=== PATIENT | female | born 1975 | race Caucasian/White ===

== ENCOUNTER 2018-06-10 22:25 | Emergency (ER) | payer MEDICARE, OTHER ==
[~2018-06-10] VITALS: Ht 160 cm; Wt 117.9 kg
[2018-06-10 23:09] VITALS: BP 118/62
[2018-06-10] MEDS ORDERED: MORPHINE SULFATE 2 MG/ML SYR IV STA (23:09)
[2018-06-10] MEDS ORDERED: ONDANSETRON HCL 4 MG ORAL DISINTEGRATING TAB PO ONE (23:15)
== END 2018-06-10 23:45 | disposition home or self-care (01) ==
LOC: FSED 22:25
DX: M54.41 Lumbago with sciatica, right side (principal); E11.9 Type 2 diabetes mellitus without complications; G89.29 Other chronic pain
CPT/HCPCS: 99283

== ENCOUNTER 2018-07-06 17:49 | Observation (INO) | payer MEDICARE, OTHER ==
[~2018-07-06] VITALS: Ht 160 cm; Wt 117.9 kg
--- OUTSIDE RECORDS SUMMARY | 2018-07-06 17:52 | XMS REPORT | Clinical Summary ---
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 Name Role Phone Katie Martins MD PCP Allergies Comments Active Allergy Reactions Severity Noted Date Pt can take ibuprofen; Unknown aspirin reaction; Transcribed during [employer], please verify: Aspirin Hives Low 12/06/2016 Other reaction(s): blister in mouth Unknown; Transcribed during [employer], please verify: Ciprofloxacin Shortness Of High 04/12/2013 Breath Rash Gabapentin Swelling Medium 02/17/2017 Ketorolac Anaphylaxis High 02/09/2017 Seizure Tramadol Other (See High 10/26/2017 Comments) Medications End Date Status Medication Sig Dispensed Refills Start Date Active HYDROcodone-acetaminophen Take 2 0 (NORCO) 10-325 mg per tablets by tablet mouth daily. Active hydrOXYzine (ATARAX) 50 TK 1 T PO 0 MG tablet QID PRF 7 ANXIETY Active medroxyPROGESTERone Take 2.5 mg 0 (PROVERA) 2.5 MG tablet by mouth daily. Active LYRICA 75 mg capsule Take 75 mg by 0 mouth 2 (two) 7 times a day. 10/26/2018 Active blood-glucose meter kit Use as 1 each 0 instructed 8 Active lancets misc Test 2-3 300 each 0 times daily, 8 Dx E11.40 Active blood sugar diagnostic Test 2-3 300 strip 0 strips (ONETOUCH ULTRA times daily, 8 TEST) strip test Dx E11.40 stripsIndications: Type 2 diabetes mellitus with diabetic neuropathy, with long-term current use of insulin (HCC) Active pen needle, diabetic (PEN Dx E11.40 1 100 each 0 NEEDLE) 32 gauge x 5/32" pen needle 8 needle daily Active insulin glulisine U-100 Inject 8 0 (APIDRA SOLOSTAR U-100 Units under INSULIN) 100 unit/mL the skin insulin pen daily with dinner. Active levothyroxine (SYNTHROID, TAKE 1 90 tablet 0 LEVOXYL) 300 mcg tablet TABLET(300 8 MCG) BY MOUTH DAILY Active HUMALOG KWIKPEN INSULIN ADMINISTER 8 9 mL 3 100 unit/mL injection pen UNITS UNDER 8 THE SKIN DAILY BEFORE DINNER Active traZODone (DESYREL) 150 TAKE 2 60 tablet 0 MG tablet TABLETS(300 8 MG) BY MOUTH EVERY NIGHT Active ARIPiprazole (ABILIFY) 30 TAKE 1 30 tablet 0 MG tablet TABLET(30 MG) 8 BY MOUTH DAILY Active metFORMIN XR TAKE 4 120 tablet 1 (GLUCOPHAGE-XR) 500 mg 24 TABLETS(2000 8 hr tablet MG) BY MOUTH DAILY WITH BREAKFAST 08/26/2017 Discontinued docusate sodium (COLACE) Take 100 mg 0 100 MG capsule by mouth 2 (two) times a day as needed for constipation. 07/20/2017 Discontinued glipiZIDE (GLUCOTROL) 10 Take 10 mg by 0 MG tablet mouth daily. 11/25/2017 Discontinued levothyroxine (SYNTHROID, Take 300 mcg 0 LEVOXYL) 300 mcg tablet by mouth daily. 10/26/2017 Discontinued metFORMIN (GLUCOPHAGE) Take 1,000 mg 0 1,000 mg tablet by mouth 2 (two) times a day. 08/27/2017 Discontinued ZANAFLEX 4 mg tablet Take 4 mg by 0 mouth 2 (two) 7 times a day. 07/20/2017 Discontinued LYRICA 50 mg capsule 0 7 07/20/2017 Discontinued ARIPiprazole (ABILIFY) 10 Take 20 mg by 0 MG tablet mouth daily. 08/26/2017 Discontinued mirtazapine (REMERON Take 30 mg by 0 KATHLEEN-TAB) 30 MG mouth disintegrating tablet nightly. 08/09/2017 albuterol (PROAIR Inhale 2 1 Inhaler 0 HFA,PROVENTIL puffs every 4 7 HFA,VENTOLIN HFA) 90 (four) hours mcg/actuation inhaler as needed for wheezing (cough) for up to 30 days. 08/09/2017 benzonatate (TESSALON) Take 1 20 capsule 0 200 MG capsule capsule (200 7 mg total) by mouth 3 (three) times a day as needed for cough for up to 30 days. 07/14/2017 azithromycin (ZITHROMAX Take 2 6 tablet 0 Z-DAJA) 250 MG tablet tablets the 7 first day, then 1 tablet daily for 4 days. 07/20/2017 Discontinued albuterol (PROAIR 0 HFA,PROVENTIL 7 HFA,VENTOLIN HFA) 90 mcg/actuation inhaler 12/08/2017 Discontinued traZODone (DESYREL) 150 Take 300 mg 0 MG tablet by mouth 7 nightly. 12/08/2017 Discontinued ARIPiprazole (ABILIFY) 30 Take 30 mg by 0 MG tablet mouth daily. 7 07/20/2017 Discontinued ZANAFLEX 4 mg tablet 0 7 08/26/2017 Discontinued buPROPion SR (WELLBUTRIN 0 SR) 150 MG 12 hr tablet 7 07/20/2017 Discontinued HYDROcodone-acetaminophen 0 (NORCO) 10-325 mg per 7 tablet 07/20/2017 Discontinued hydrOXYzine (ATARAX) 10 0 MG tablet 7 08/26/2017 Discontinued BYDUREON 2 mg/0.65 mL pen 0 injector 7 08/26/2017 Discontinued glipiZIDE (GLUCOTROL) 10 0 MG tablet 7 07/20/2017 Discontinued GLUCOPHAGE 1,000 mg 0 tablet 7 07/20/2017 Discontinued PROVERA 10 mg tablet 0 7 07/20/2017 Discontinued levothyroxine (SYNTHROID, 0 LEVOXYL) 300 mcg tablet 7 07/23/2017 lidocaine HCl (lidocaine) 15 mL by 90 mL 0 2 % solution mucous 7 membrane route 2 (two) times a day for 3 days. 08/10/2017 sulfamethoxazole-trimetho Take 1 tablet 14 tablet 0 prim (BACTRIM DS) 800-160 by mouth 2 8 mg per tablet (two) times a day for 7 days. smx-tmp DS (BACTRIM) 800-160 mg tabs (1tab q12 D10) 08/13/2017 traMADol (ULTRAM) 50 mg Take 1 tablet 20 tablet 0 tablet (50 mg total) 8 by mouth every 6 (six) hours as needed for moderate pain for up to 10 days. 08/03/2017 fluconazole (DIFLUCAN) Take 1 tablet 1 tablet 0 150 MG tablet (150 mg 8 total) by mouth once for 1 dose. 08/14/2017 prochlorperazine Take 1 tablet 20 tablet 0 (COMPAZINE) 10 MG tablet (10 mg total) 8 by mouth 2 (two) times a day as needed for nausea or vomiting for up to 10 days. 08/26/2017 Discontinued diphenhydrAMINE Take 1 tablet 20 tablet 0 (BENADRYL) 25 mg tablet (25 mg total) 8 by mouth every 6 (six) hours for 30 days. 09/27/2017 verapamil extended Take 1 30 capsule 0 release (VERELAN) 120 MG capsule (120 8 24 hr capsule mg total) by mouth daily for 30 days. 11/25/2017 Discontinued verapamil (CALAN) 120 MG Take 1 tablet 0 tablet by mouth 8 daily. 11/25/2017 Discontinued metFORMIN XR Take 1 tablet 30 tablet 2 (GLUCOPHAGE-XR) 500 mg 24 (500 mg 8 hr tablet total) by mouth daily with breakfast for 30 days. 12/08/2017 Discontinued exenatide microspheres 2 Inject 2 mg 12 each 0 mg suspension,extended under the 8 rel recon skin every 7 days for 90 days. 11/25/2017 Discontinued insulin GLARGINE (TOUJEO) Inject 8 1.5 mL 2 300 unit/mL (1.5 mL) Units under 8 insulin pen the skin daily for 30 days. 11/25/2017 Discontinued pen needle, diabetic (PEN Dx E11.40 1 300 each 0 NEEDLE) 32 gauge x 5/32" pen needle 8 needle daily 11/25/2017 Discontinued levothyroxine (SYNTHROID, Take 1 tablet 30 tablet 1 LEVOXYL) 300 mcg tablet (300 mcg 8 total) by mouth daily for 30 days. 12/25/2017 verapamil (CALAN) 120 MG Take 1 tablet 30 tablet 2 tablet (120 mg 8 total) by mouth daily for 30 days. 11/25/2017 Discontinued metFORMIN XR Take 4 120 tablet 1 (GLUCOPHAGE-XR) 500 mg 24 tablets 8 hr tablet (2,000 mg total) by mouth daily with breakfast for 30 days. 12/25/2017 insulin GLARGINE (TOUJEO) Inject 30 3 Syringe 3 300 unit/mL (1.5 mL) Units under 8 insulin pen the skin daily for 30 days. 04/01/2018 Discontinued metFORMIN XR TAKE 4 360 tablet 1 (GLUCOPHAGE-XR) 500 mg 24 TABLETS(2000 8 hr tablet MG) BY MOUTH DAILY WITH BREAKFAST 12/08/2017 Discontinued levothyroxine (SYNTHROID, TAKE 1 90 tablet 1 LEVOXYL) 300 mcg tablet TABLET(300 8 MCG) BY MOUTH DAILY 12/08/2017 Discontinued levothyroxine (SYNTHROID, Take 300 mcg 0 LEVOXYL) 300 mcg tablet by mouth 8 daily. 12/08/2017 Discontinued TOUJEO SOLOSTAR U-300 Inject 44 0 INSULIN 300 unit/mL (1.5 Units under 8 mL) insulin pen the skin daily. 12/08/2017 Discontinued CALAN 120 mg tablet Take 120 mg 0 by mouth 8 every morning. 12/08/2017 Discontinued insulin lispro (HUMALOG) Inject 8 3 mL 3 100 unit/mL injection pen Units under 8 the skin daily before dinner for 30 days. 12/08/2017 Discontinued ARIPiprazole (ABILIFY) 30 Take 1 tablet 30 tablet 0 MG tablet (30 mg total) 8 by mouth daily for 30 days. 12/08/2017 Discontinued traZODone (DESYREL) 150 Take 2 60 tablet 0 MG tablet tablets (300 8 mg total) by mouth nightly for 30 days. 12/28/2017 acetaminophen-codeine Take 1-2 22 tablet 0 (TYLENOL WITH CODEINE #3) tablets by 8 300-30 mg per tablet mouth every 6 (six) hours as needed for moderate pain for up to 5 days. 01/22/2018 ondansetron ODT (ZOFRAN Take 1 tablet 30 tablet 0 ODT) 4 MG disintegrating (4 mg total) 8 tablet by mouth every 8 (eight) hours as needed for nausea or vomiting for up to 30 days. Active Problems Problem Noted Date SVT (supraventricular tachycardia) 08/26/2017 Dyspepsia 05/13/2017 Menorrhagia 04/07/2017 Hepatic steatosis 02/23/2017 Diarrhea 02/17/2017 H/O: GI bleed 02/17/2017 Melena 12/08/2016 GI bleed 12/07/2016 Overview: Suspected Epigastric pain 12/07/2016 Anemia 12/07/2016 Type 2 diabetes mellitus with diabetic neuropathy 12/07/2016 Hypothyroid 12/07/2016 Encounters Care Team Description Date Type Specialty Katie Martins MD 04/01/2018 Orders Only Internal Medicine Jessica Mccrary LVN 04/01/2018 Telephone Family Medicine Julio Pierson MD Pain of right upper extremity (Primary Dx) 12/23/2017 Emergency Emergency Medicine Katie Martins MD Type 2 diabetes mellitus with hyperglycemia, with long-term current use of insulin (Primary Dx) 12/08/2017 Office Visit Internal Medicine Katie Martins MD 12/08/2017 Refill Internal Medicine Katie Martins MD 11/27/2017 Telephone Internal Medicine Katie Martins MD Chronic tension-type headache, intractable (Primary Dx) 11/27/2017 Orders Only Internal Medicine Katie Martins MD Type 2 diabetes mellitus with hyperglycemia, with long-term current use of insulin (Primary Dx); Acquired hypothyroidism; Numbness 11/25/2017 Office Visit Internal Medicine Katie Martins MD 11/25/2017 Refill Internal Medicine Beulah Olivera MA 11/11/2017 Telephone Internal Medicine Karyn Bernal MD Numbness (Primary Dx) 11/10/2017 Emergency Emergency Medicine Lauren Ingram MA 11/10/2017 Telephone Internal Medicine Asked, No Pcp 11/10/2017 Nurse Triage Access Beulah Olivera MA 11/09/2017 Telephone Internal Medicine Beulah Olivera MA Type 2 diabetes mellitus with diabetic neuropathy, with long-term current use of insulin 10/28/2017 Orders Only Internal Medicine Katie Martins MD 10/28/2017 Telephone Internal Medicine Beulah Olivera MA 10/27/2017 Orders Only Internal Medicine Katie Martins MD 10/27/2017 Telephone Internal Medicine Katie Martins MD Type 2 diabetes mellitus with hyperglycemia, without long- term current use of insulin (Primary Dx); Anemia, unspecified type; Menorrhagia with regular cycle; PSVT (paroxysmal supraventricular tachycardia); Acquired hypothyroidism; Chronic pain syndrome; Other intermodal customer service (current) drug therapy; Hypokalemia; Encounter for breast cancer screening other than mammogram; Need for Streptococcus pneumoniae vaccination 10/26/2017 Office Visit Internal Medicine Waldemar Parrish MD Abouelseoud, Tanseem Hamad Mohamed A, MD SVT (supraventricular tachycardia) (Primary Dx); Elevated serum lactate dehydrogenase; Dizziness 08/26/2017 Emergency General Internal Medicine - 08/27/2017 Waldemar Parrish MD Nonintractable headache, unspecified chronicity pattern, unspecified headache type (Primary Dx) 08/04/2017 Emergency Emergency Medicine Maxim Dye MD Acute cystitis without hematuria (Primary Dx); Intractable episodic cluster headache 08/03/2017 Emergency Emergency Medicine 07/31/2017 Emergency Emergency Medicine Fox Mcdonough DO URI, acute (Primary Dx) 07/20/2017 Emergency Emergency Medicine Elida Doll NP-C Marcantel, Derek L, MD Bronchitis (Primary Dx); Migraine without status migrainosus, not intractable, unspecified migraine type 07/10/2017 Emergency Emergency Medicine after 07/05/2017 Immunizations Name Dates Previously Given Next Due Pneumococcal 10/26/2017 Polysaccharide Family History Medical History Relation Name Comments Kidney failure Father Thyroid disease Mother Relation Name Status Comments Father Mother Alive Social History Date Tobacco Use Types Packs/Day Years Used Current Every Day Smoker Cigarettes 1.5 Smokeless Tobacco: Never Used Tobacco Cessation: Ready to Quit: Yes; Counseling Given: No Comments: declined Alcohol Use Drinks/Week oz/Week Comments No Sex Assigned at Date Recorded Not on file Industry Job Start Date Occupation Not on file Not on file Not on file Travel End Travel History Travel Start No recent travel history available. Last Filed Vital Signs Time Taken Vital Sign Reading 12/23/2017 6:55 PM CDT Blood Pressure 120/58 12/23/2017 6:55 PM CDT Pulse 76 12/23/2017 6:55 PM CDT Temperature 36.3 C (97.4 F) 12/23/2017 6:55 PM CDT Respiratory Rate 16 12/23/2017 6:55 PM CDT Oxygen Saturation 95% - Inhaled Oxygen - Concentration 12/23/2017 3:42 PM CDT Weight 122 kg (270 lb) 12/23/2017 3:42 PM CDT Height 160 cm (5' 3") 12/23/2017 3:42 PM CDT Body Mass Index 47.83 Plan of Treatment Health Maintenance Due Date Last Done Comments DIABETIC FOOT EXAM 1986 URINE MICROALBUMIN 1986 HEPATITIS B VACCINES (1 1995 of 3 - Risk 3-dose series) CERVICAL CANCER SCREENING 1997 INFLUENZA VACCINE 02/24/2018 DIABETIC RETINAL EYE EXAM 2018 2017 IPV VACCINES Aged Out No longer eligible based on patient's age to complete this topic MENINGOCOCCAL VACCINE Aged Out No longer eligible based on patient's age to complete this topic Procedures Comments Procedure Name Priority Date/Time Associated Diagnosis XR ELBOW 3+ VW RIGHT STAT 12/23/2017 4:59 PM CDT US DUPLEX VENOUS UPPER STAT 12/23/2017 EXTREMITY RIGHT 4:54 PM CDT POC GLUCOSE Routine 12/23/2017 3:48 PM CDT COMPREHENSIVE METABOLIC Routine 12/08/2017 Type 2 diabetes mellitus PANEL 9:59 AM CDT with hyperglycemia, with long-term current use of insulin ECG 12-LEAD STAT 11/10/2017 5:49 PM CDT URINALYSIS SCREEN AND STAT 11/10/2017 MICROSCOPY, WITH REFLEX 5:43 PM CDT TO CULTURE URINE CULTURE STAT 11/10/2017 5:43 PM CDT POC GLUCOSE Routine 11/10/2017 5:[address] ANGIOGRAM NECK W WO STAT 11/10/2017 CONTRAST 5:[address] ANGIOGRAM HEAD W WO STAT 11/10/2017 CONTRAST 5:27 PM CDT ECG ED PRELIMINARY Routine 11/10/2017 INTERPRETATION 5:[address] STROKE BRAIN WO STAT 11/10/2017 CONTRAST 5:03 PM CDT ZZESTIMATED GFR STAT 11/10/2017 5:03 PM CDT TROPONIN STAT 11/10/2017 5:03 PM CDT COMPREHENSIVE METABOLIC STAT 11/10/2017 PANEL 5:03 PM CDT PARTIAL THROMBOPLASTIN STAT 11/10/2017 TIME (PTT) 4:55 PM CDT HC COMPLETE BLD COUNT STAT 11/10/2017 W/AUTO DIFF 4:55 PM CDT PROTHROMBIN TIME WITH INR STAT 11/10/2017 4:55 PM CDT POC GLUCOSE Routine 11/10/2017 4:43 PM CDT POC GLYCOSYLATED Routine 10/26/2017 Type 2 diabetes mellitus HEMOGLOBIN (HGB A1C) 11:14 AM CDT with hyperglycemia, without long-term current use of insulin ECG ED PRELIMINARY Routine 08/27/2017 INTERPRETATION 11:32 AM SLICING MACHINE FEEDER POC GLUCOSE Routine 08/27/2017 11:05 AM SLICING MACHINE FEEDER ZZESTIMATED GFR Routine 08/27/2017 7:00 AM SLICING MACHINE FEEDER BASIC METABOLIC PANEL Routine 08/27/2017 7:00 AM SLICING MACHINE FEEDER POC GLUCOSE Routine 08/27/2017 6:42 AM SLICING MACHINE FEEDER HC COMPLETE BLD COUNT Routine 08/27/2017 W/AUTO DIFF 4:27 AM SLICING MACHINE FEEDER URINE CULTURE STAT 08/27/2017 1:00 AM SLICING MACHINE FEEDER URINALYSIS SCREEN AND STAT 08/27/2017 MICROSCOPY, WITH REFLEX 12:57 AM SLICING MACHINE FEEDER TO CULTURE LACTIC ACID LEVEL Timed 08/26/2017 7:05 PM SLICING MACHINE FEEDER ECHOCARDIOGRAM 2D Routine 08/26/2017 COMPLETE W MMODE SPECTRAL 5:48 PM SLICING MACHINE FEEDER COLOR DOPPLER ([id number]) BLOOD CULTURE, AEROBIC & Routine 08/26/2017 ANAEROBIC 5:25 PM SLICING MACHINE FEEDER XR CHEST 1 VW PORTABLE STAT 08/26/2017 5:14 PM SLICING MACHINE FEEDER B NATRIURETIC PEPTIDE STAT 08/26/2017 5:14 PM SLICING MACHINE FEEDER ALCOHOL LEVEL, BLOOD Routine 08/26/2017 5:14 PM SLICING MACHINE FEEDER BLOOD CULTURE, AEROBIC & Routine 08/26/2017 ANAEROBIC 5:14 PM SLICING MACHINE FEEDER LACTIC ACID LEVEL, SEPSIS Timed 08/26/2017 - NOW AND REPEAT 2X EVERY 4:01 PM SLICING MACHINE FEEDER 3 HOURS TROPONIN Timed 08/26/2017 4:01 PM SLICING MACHINE FEEDER HEMOGLOBIN A1C Routine 08/26/2017 11:53 AM SLICING MACHINE FEEDER ZZESTIMATED GFR STAT 08/26/2017 11:53 AM SLICING MACHINE FEEDER T4, FREE STAT 08/26/2017 11:53 AM SLICING MACHINE FEEDER THYROID STIMULATING STAT 08/26/2017 HORMONE 11:53 AM SLICING MACHINE FEEDER LACTIC ACID LEVEL, SEPSIS STAT 08/26/2017 - NOW AND REPEAT 2X EVERY 11:53 AM SLICING MACHINE FEEDER 3 HOURS HCG QUALITATIVE, SERUM STAT 08/26/2017 SCREEN 11:53 AM SLICING MACHINE FEEDER CREATINE KINASE, TOTAL STAT 08/26/2017 (CPK) 11:53 AM SLICING MACHINE FEEDER B NATRIURETIC PEPTIDE STAT 08/26/2017 11:53 AM SLICING MACHINE FEEDER TROPONIN STAT 08/26/2017 11:53 AM SLICING MACHINE FEEDER COMPREHENSIVE METABOLIC STAT 08/26/2017 PANEL 11:53 AM SLICING MACHINE FEEDER PARTIAL THROMBOPLASTIN STAT 08/26/2017 TIME (PTT) 11:53 AM SLICING MACHINE FEEDER PROTHROMBIN TIME WITH INR STAT 08/26/2017 11:53 AM SLICING MACHINE FEEDER HC COMPLETE BLD COUNT STAT 08/26/2017 W/AUTO DIFF 11:53 AM SLICING MACHINE FEEDER XR CHEST 2 VW STAT 08/26/2017 11:14 AM SLICING MACHINE FEEDER ECG 12-LEAD STAT 08/26/2017 10:56 AM SLICING MACHINE FEEDER ZZESTIMATED GFR STAT 08/04/2017 1:26 PM SLICING MACHINE FEEDER HCG QUALITATIVE, SERUM STAT 08/04/2017 SCREEN 1:26 PM SLICING MACHINE FEEDER COMPREHENSIVE METABOLIC STAT 08/04/2017 PANEL 1:26 PM SLICING MACHINE FEEDER HC COMPLETE BLD COUNT STAT 08/04/2017 W/AUTO DIFF 1:26 PM SLICING MACHINE FEEDER CT HEAD WO CONTRAST STAT 08/03/2017 4:03 PM SLICING MACHINE FEEDER URINALYSIS SCREEN AND STAT 08/03/2017 MICROSCOPY, WITH REFLEX 2:45 PM SLICING MACHINE FEEDER TO CULTURE GRAM STAIN STAT 08/03/2017 2:45 PM SLICING MACHINE FEEDER URINE CULTURE STAT 08/03/2017 2:45 PM SLICING MACHINE FEEDER ZZESTIMATED GFR STAT 08/03/2017 2:35 PM SLICING MACHINE FEEDER HCG QUALITATIVE, SERUM STAT 08/03/2017 SCREEN 2:35 PM SLICING MACHINE FEEDER COMPREHENSIVE METABOLIC STAT 08/03/2017 PANEL 2:35 PM SLICING MACHINE FEEDER HC COMPLETE BLD COUNT STAT 08/03/2017 W/AUTO DIFF 2:35 PM SLICING MACHINE FEEDER STREP SCREEN CULTURE Routine 07/20/2017 6:31 AM SLICING MACHINE FEEDER GROUP A STREP, RAPID Routine 07/20/2017 ANTIGEN 2:21 AM SLICING MACHINE FEEDER INFLUENZA ANTIGEN Routine 07/10/2017 10:46 AM SLICING MACHINE FEEDER XR CHEST 2 VW STAT 07/10/2017 10:30 AM SLICING MACHINE FEEDER after 07/05/2017 Results * XR Elbow 3+ Vw Right (12/23/2017 4:59 PM CDT) Narrative Performed At EXAMINATION:XR ELBOW 3VW RIGHT [facility] CLINICAL HISTORY:right elbow pain COMPARISON:None. IMPRESSION: There is no evidence of acute right elbow fracture, dislocation, or joint effusion. [facility]-[id number] Procedure Note Hm Interface, Radiology Results Incoming - 12/23/2017 5:04 PM CDT EXAMINATION: XR ELBOW 3 VW RIGHT CLINICAL HISTORY: right elbow pain COMPARISON: None. IMPRESSION: There is no evidence of acute right elbow fracture, dislocation, or joint effusion. [facility]-[id number] Performing Organization Address [facility]/Zipcode Phone Number [facility] [address] [place] [address] * Pv duplex venous upper extremity (12/23/2017 4:54 PM CDT) Narrative Performed At [facility] The right upper extremity was negative for deep vein thrombosis or superficial vein thrombosis. Performing Organization Address [facility]/Zipcode Phone Number [facility] [address] [place] [address] * POC glucose (12/23/2017 3:48 PM CDT) Only the most recent of 5 results within the time period is included. POC glucose 249 (H) 65 - 99 mg/dL [facility] DEPARTMENT OF Comment: PATHOLOGY AND Meter ID: [id number] GENOMIC MEDICINE Remittance Clerk: Carmen Lou Performing Organization Address City/[facility]/Zipcode Phone Number [facility] DEPARTMENT OF [address] [place] [address] [place] [address] PATHOLOGY AND GENOMIC MEDICINE * Comprehensive metabolic panel (12/08/2017 9:59 AM CDT) Only the most recent of 5 results within the time period is included. Glucose 119 (H) 65 - 99 mg/dL [facility] BUN, whole blood 17 6 - 24 mg/dL [facility] Creatinine 0.95 0.57 - 1.00 mg/dL [facility] EGFR Non-Afr. British 75 >59 mL/min/1.73 [facility] EGFR 86 >59 mL/min/1.73 [facility] BUN/creatinine ratio 18 9 - 23 [facility] Sodium 143 134 - 144 mmol/L [facility] Potassium 4.4 3.5 - 5.2 mmol/L [facility] Chloride 103 96 - 106 mmol/L [facility] CO2 22 18 - 29 mmol/L [facility] Calcium 9.8 8.7 - 10.2 mg/dL [facility] Protein 7.8 6.0 - 8.5 g/dL [facility] Albumin, S 4.9 3.5 - 5.5 g/dL [facility] Globulin, total 2.9 1.5 - 4.5 g/dL [facility] Albumin/globulin ratio 1.7 1.2 - 2.2 [facility] Total bilirubin 0.7 0.0 - 1.2 mg/dL [facility] Alkaline phosphatase 122 (H) 39 - 117 IU/L [facility] AST 127 (H) 0 - 40 IU/L [facility] ALT 76 (H) 0 - 32 IU/L [facility] Specimen Blood Narrative Performed At Performed at:[facility] - [facility] [address] [place], [place] [id number] Waist Pleater: Fabricio Ibanez MD, Phone:[phone] Performing Organization Address City/State[facility] Phone Number [facility] * ECG 12 lead (11/10/2017 5:49 PM CDT) Only the most recent of 2 results within the time period is included. Ventricular rate 80 [facility] Atrial rate 80 [facility] MT interval 152 [facility] QRSD interval 92 [facility] QT interval 386 [facility] QTC interval 445 [facility] P axis 1 52 [facility] QRS axis 1 18 [facility] T wave axis 56 [facility] EKG impression Normal sinus [facility] rhythm-Nonspecific T wave abnormality-Abnormal ECG-In automated comparison with ECG of 26-AUG-2017 10:56,-Nonspecific T wave abnormality, worse in Inferior leads-Nonspecific T wave abnormality now evident in Anterolateral leads- Performing Organization Address City/State/Zipcode Phone Number [facility] [address] [place] [address] * Urinalysis screen and microscopy, with reflex to culture (11/10/2017 5:43 PM CDT) Only the most recent of 3 results within the time period is included. Specimen site Catheterized [facility] DEPARTMENT OF PATHOLOGY AND GENOMIC MEDICINE Color, UA Straw [facility] DEPARTMENT OF PATHOLOGY AND GENOMIC MEDICINE Appearance, UA Clear [facility] DEPARTMENT OF PATHOLOGY AND GENOMIC MEDICINE Specific gravity, UA 1.030 1.001 - 1.035 [facility] DEPARTMENT OF PATHOLOGY AND GENOMIC MEDICINE pH, UA 5.0 5.0 - 8.5 [facility] DEPARTMENT OF PATHOLOGY AND GENOMIC MEDICINE Protein, UA Negative Negative [facility] DEPARTMENT OF PATHOLOGY AND GENOMIC MEDICINE Glucose, UA 3+ (A) Negative [facility] DEPARTMENT OF PATHOLOGY AND GENOMIC MEDICINE Ketones, UA Trace (A) Negative [facility] DEPARTMENT OF PATHOLOGY AND GENOMIC MEDICINE Bilirubin, UA Negative Negative [facility] DEPARTMENT OF PATHOLOGY AND GENOMIC MEDICINE Blood, UA Small (A) Negative [facility] DEPARTMENT OF PATHOLOGY AND GENOMIC MEDICINE Nitrite, UA Negative Negative [facility] DEPARTMENT OF PATHOLOGY AND GENOMIC MEDICINE Urobilinogen, UA Negative <2.0 [facility] DEPARTMENT OF PATHOLOGY AND GENOMIC MEDICINE Leukocyte esterase, UA Negative Negative [facility] DEPARTMENT OF PATHOLOGY AND GENOMIC MEDICINE Epithelial cells, UA Few /HPF [facility] DEPARTMENT OF PATHOLOGY AND GENOMIC MEDICINE WBC, UA <1 0 - 5 /HPF [facility] DEPARTMENT OF PATHOLOGY AND GENOMIC MEDICINE RBC, UA 2 0 - 5 /HPF [facility] DEPARTMENT OF PATHOLOGY AND GENOMIC MEDICINE Bacteria, UA None seen None seen [facility] DEPARTMENT OF PATHOLOGY AND GENOMIC MEDICINE Yeast, UA None seen [facility] DEPARTMENT OF PATHOLOGY AND GENOMIC MEDICINE Yeast with pseudohyphae, None seen [facility] DEPARTMENT OF PATHOLOGY AND GENOMIC MEDICINE Specimen Urine Performing Organization Address City/[facility]/Zipcode Phone Number [place] [phone] [place] [address] PATHOLOGY AND GENOMIC MEDICINE * Urine culture (11/10/2017 5:43 PM CDT) Only the most recent of 3 results within the time period is included. Urine culture SEE COMMENTComment: [facility] DEPARTMENT OF Bacteriuria screen negative. PATHOLOGY AND GENOMIC MEDICINE Specimen Urine Performing Organization Address City/State/Zipcode Phone Number [facility] DEPARTMENT OF [address] [place] [address] PATHOLOGY AND GENOMIC MEDICINE * CTA Neck W Wo Contrast (11/10/2017 5:30 PM CDT) Narrative Performed At EXAMINATION: CT ANGIOGRAM NECK W WO CONTRAST [facility] CLINICAL HISTORY: numbness left side COMPARISON:None TECHNIQUE: Imaging of the cervical circulation was obtained from the upper thorax to the skull base during the arterial phase of enhancement. Postprocessing was performed with MIP multiplanar and 3D reconstructed images.CT imaging was performed with iterative reconstruction technique and/or automated exposure control to reduce radiation dose. FINDINGS: Visualized upper mediastinum shows no mass lesion. Lung apices are clear. Visualized soft tissues shows no mass, adenopathy or fluid collection. Visualized osseous structures shows no acute fracture or dislocation. The common carotid arteries, carotid bulbs, internal carotid arteries and external carotid arteries are opacified with 0% stenosis by NASCET criteria. The vertebral arteries are patent throughout the visualized cervical segments without significant stenosis. There is mild tortuosity of the carotid arteries which remain widely patent. The left vertebral artery is dominant. IMPRESSION: No hemodynamically significant narrowing of the cervical vessels by NASCET criteria. [id number] Procedure Note Hm Interface, Radiology Results Incoming - 11/10/2017 5:40 PM CDT EXAMINATION: CT ANGIOGRAM NECK W WO CONTRAST CLINICAL HISTORY: numbness left side COMPARISON: None TECHNIQUE: Imaging of the cervical circulation was obtained from the upper thorax to the skull base during the arterial phase of enhancement. Postprocessing was performed with MIP multiplanar and 3D reconstructed images. CT imaging was performed with iterative reconstruction technique and/or automated exposure control to reduce radiation dose. FINDINGS: Visualized upper mediastinum shows no mass lesion. Lung apices are clear. Visualized soft tissues shows no mass, adenopathy or fluid collection. Visualized osseous structures shows no acute fracture or dislocation. The common carotid arteries, carotid bulbs, internal carotid arteries and external carotid arteries are opacified with 0% stenosis by NASCET criteria. The vertebral arteries are patent throughout the visualized cervical segments without significant stenosis. There is mild tortuosity of the carotid arteries which remain widely patent. The left vertebral artery is dominant. IMPRESSION: No hemodynamically significant narrowing of the cervical vessels by NASCET criteria. [id number] Performing Organization Address City/State/Zipcode Phone Number [facility] [address] [place] [address] * CTA Head W Wo Contrast (11/10/2017 5:27 PM CDT) Narrative Performed At EXAMINATION: CT ANGIOGRAM HEAD W WO CONTRAST [facility] CLINICAL HISTORY: numbness left side COMPARISON:CT brain dated November 10, 2017 TECHNIQUE:Imaging of the intracranial circulation was obtained from the skull base to the vertex during the arterial phase of enhancement. Postprocessing was performed with MIP multiplanar and 3D reconstructed images.CT imaging was performed with iterative reconstruction technique and/or automated exposure control to reduce radiation dose. FINDINGS: There are no gross brain parenchymal abnormalities. There is no midline shift, hydrocephalus or extra-axial fluid collection. The major dural sinuses are opacified normally. Soft tissue shows no evidence of laceration or hematoma. No hemodynamically significant stenosis is identified of the intracranial internal carotid arteries, middle cerebral arteries, anterior cerebral arteries, intracranial vertebral arteries, basilar artery or posterior cerebral arteries. There is no aneurysmal dilatation or vascular malformation of the [place]. The left vertebral artery is dominant. There is origin of the right posterior cerebral artery. IMPRESSION: No hemodynamically significant narrowing of the [place] vessels. [id number] Procedure Note Interface, Radiology Results Incoming - 11/10/2017 5:39 PM CDT EXAMINATION: CT ANGIOGRAM HEAD W WO CONTRAST CLINICAL HISTORY: numbness left side COMPARISON: CT brain dated November 10, 2017 TECHNIQUE: Imaging of the intracranial circulation was obtained from the skull base to the vertex during the arterial phase of enhancement. Postprocessing was performed with MIP multiplanar and 3D reconstructed images. CT imaging was performed with iterative reconstruction technique and/or automated exposure control to reduce radiation dose. FINDINGS: There are no gross brain parenchymal abnormalities. There is no midline shift, hydrocephalus or extra-axial fluid collection. The major dural sinuses are opacified normally. Soft tissue shows no evidence of laceration or hematoma. No hemodynamically significant stenosis is identified of the intracranial internal carotid arteries, middle cerebral arteries, anterior cerebral arteries, intracranial vertebral arteries, basilar artery or posterior cerebral arteries. There is no aneurysmal dilatation or vascular malformation of the [place]. The left vertebral artery is dominant. There is origin of the right posterior cerebral artery. IMPRESSION: No hemodynamically significant narrowing of the [place] vessels. [id number] Performing Organization Address City/State/Zipcode Phone Number [facility] [address] [place] [address] * ECG ED Preliminary Interpretation - NOT AN ORDER (11/10/2017 5:13 PM CDT) Only the most recent of 2 results within the time period is included. Narrative Performed At Karyn Bernal MD 11/10/20179:17 PM ECG ED Preliminary Interpretation - Not an Order Performed by: KARYN BERNAL Authorized by: KARYN BERNAL ECG reviewed by ED Physician in the absence of a material liaison: yes Interpretation: Interpretation: normal Rate: ECG rate:80 ECG rate assessment: normal Rhythm: Rhythm: sinus rhythm Ectopy: Ectopy: none QRS: QRS axis:Normal QRS intervals:Normal Conduction: Conduction: normal ST segments: ST segments:Normal T waves: T waves: normal Comments: Read by Dr. Karyn Bernal at 1749 on 11/10/17 * CT Stroke Brain Wo Contrast (11/10/2017 5:03 PM CDT) Narrative Performed At EXAMINATION: CT STROKE BRAIN WO CONTRAST [facility] CLINICAL HISTORY: numbness left side COMPARISON:Brain CT August 03, 2017 TECHNIQUE: Noncontrast enhanced images of the brain were obtained from the skull base to the vertex. Both soft tissue and bone reconstruction algorithms were performed.CT imaging was performed with iterative reconstruction technique and/or automated exposure control to reduce radiation dose. FINDINGS: The brain parenchyma shows no evidence of acute lesion. The otto-white matter differentiation is preserved. No evidence of acute intra or extra-axial hemorrhage, mass, mass effect or acute territorial infarction. There is no acute hydrocephalus. Basal cisterns are patent. Beam hardening artifact obscures details at the level of the skull base, including portions of the supraorbital frontal lobes, inferior temporal lobes, brainstem and cerebellum. No acute soft tissue hematoma or laceration. Paranasal sinuses shows no acute air-fluid levels.Mild mucosal thickening of the left maxillary sinus. Mastoid air cells are clear.No skull fractures or aggressive bony lesions. IMPRESSION: No acute intracranial abnormality identified. Findings were discussed with Dr. Waldemar Gallardo at 11/10/2017 5:06 PM who verbalized understanding. [id number] Procedure Note Interface, Radiology Results Incoming - 11/10/2017 5:18 PM CDT EXAMINATION: CT STROKE BRAIN WO CONTRAST CLINICAL HISTORY: numbness left side COMPARISON: Brain CT August 03, 2017 TECHNIQUE: Noncontrast enhanced images of the brain were obtained from the skull base to the vertex. Both soft tissue and bone reconstruction algorithms were performed. CT imaging was performed with iterative reconstruction technique and/or automated exposure control to reduce radiation dose. FINDINGS: The brain parenchyma shows no evidence of acute lesion. The otto-white matter differentiation is preserved. No evidence of acute intra or extra-axial hemorrhage, mass, mass effect or acute territorial infarction. There is no acute hydrocephalus. Basal cisterns are patent. Beam hardening artifact obscures details at the level of the skull base, including portions of the supraorbital frontal lobes, inferior temporal lobes, brainstem and cerebellum. No acute soft tissue hematoma or laceration. Paranasal sinuses shows no acute air-fluid levels. Mild mucosal thickening of the left maxillary sinus. Mastoid air cells are clear. No skull fractures or aggressive bony lesions. IMPRESSION: No acute intracranial abnormality identified. Findings were discussed with Dr. Waldemar Gallardo at 11/10/2017 5:06 PM who verbalized understanding. [id number] Performing Organization Address City/[facility] Phone Number [facility] [address] [place] [address] * Estimated GFR (11/10/2017 5:03 PM CDT) Only the most recent of 5 results within the time period is included. GFR Non Af Amer 49 (A) mL/min/1.73 m2 [facility] DEPARTMENT OF PATHOLOGY AND GENOMIC MEDICINE GFR Af Amer 60 mL/min/1.73 m2 [facility] DEPARTMENT OF Comment: PATHOLOGY AND Chronic kidney disease: <60 GENOMIC MEDICINE mL/min/1.73m2 Kidney failure: <15 mL/min/1.73m2 The estimated GFR is calculated from the IDMS-traceable Modification of Diet in Renal Disease Equation. The accuracy of the calculation is poor when the creatinine is normal. Calculated values >90 mL/min/1.73m2 are not reported. This equation has not been validated in children (<18 years), women, the elderly (>70 years), or ethnic groups other than Caucasians and Americans. Specimen Plasma specimen Performing Organization Address City/[facility]/Zipcode Phone Number [facility] [address] [phone] PATHOLOGY AND AGELON ? MEDICINE * Troponin (11/10/2017 5:03 PM CDT) Only the most recent of 3 results within the time period is included. Troponin <0.01 0.00 - 0.60 ng/mL [facility] DEPARTMENT OF Comment: PATHOLOGY AND 0.11 - 1.49 GENOMIC MEDICINE ng/mlMay indicate increased risk of acute coronary syndrome. >=1.5 ng/ml Consistent with acute myocardial infarction. The diagnostic value of a single normal or non-diagnostic result is questionable.Serial samples at 2-6 hour intervals are required to rule out acute myocardial injury. Specimen Plasma specimen Performing Organization Address [facility] [place] [address] PATHOLOGY AND AGELON ? [facility] * Partial thromboplastin time, activated (11/10/2017 4:55 PM CDT) Only the most recent of 2 results within the time period is included. PTT 27.2 23.0 - 36.0 sec [facility] DEPARTMENT OF Comment: PATHOLOGY AND PTT therapeutic range for AGELON ? MEDICINE unfractionated heparin is 61.0-112.0 seconds which corresponds to Anti-Xa 0.3-0.7 U/ml. Note:Change in Panic Value The PTT Panic Value is changing from 110 sec. to 100 sec. due to new instrumentation and reagents. Correlation studies have been performed to validate this result. Specimen Blood Narrative Performed At code cva [facility] DEPARTMENT OF PATHOLOGY AND GENOMIC MEDICINE Performing Organization Address City/[facility] Phone Number [place] [phone] PATHOLOGY AND AGELON ? MEDICINE * Prothrombin time with INR (11/10/2017 4:55 PM CDT) Only the most recent of 2 results within the time period is included. Prothrombin time 12.2 12.0 - 15.0 sec [facility] DEPARTMENT OF PATHOLOGY AND AGELON ? MEDICINE INR 0.90 (L) 0.92 - 1.12 [facility] DEPARTMENT OF Comment: PATHOLOGY AND For patients on anticoagulant GENOMIC MEDICINE therapy, reference ranges below: Indication: INR Value Treatment of Venous Thrombosis, 2.0-3.0 pulmonary emboli, or prophylaxis of a venous thrombosis, or systemic emboli. High dose, high risk patients 3.0-4.5 with mechanical valves. NOTE:INR values over 3.0 are sometimes associated with gastrointestinal hemorrhage, especially values over 4.0. Specimen Blood Narrative Performed At [facility] DEPARTMENT OF PATHOLOGY AND GENOMIC MEDICINE Performing Organization Address City/State/Zipcode Phone Number [facility] [address] [place] [address] PATHOLOGY AND GENOMIC MEDICINE * CBC with platelet and differential (11/10/2017 4:55 PM CDT) Only the most recent of 5 results within the time period is included. WBC 11.0 4.2 - 11.0 k/uL [facility] DEPARTMENT OF PATHOLOGY AND GENOMIC MEDICINE RBC 4.50 4.04 - 5.86 m/uL [facility] DEPARTMENT OF PATHOLOGY AND GENOMIC MEDICINE HGB 13.4 11.5 - 15.3 g/dL [facility] DEPARTMENT OF PATHOLOGY AND GENOMIC MEDICINE HCT 40.2 34.0 - 45.0 % [facility] DEPARTMENT OF PATHOLOGY AND GENOMIC MEDICINE MCV 89.3 80.0 - 98.0 fL [facility] DEPARTMENT OF PATHOLOGY AND GENOMIC MEDICINE MCH 29.8 27.0 - 34.0 pg [facility] DEPARTMENT OF PATHOLOGY AND GENOMIC MEDICINE MCHC 33.3 31.5 - 36.5 g/dL [facility] DEPARTMENT OF PATHOLOGY AND GENOMIC MEDICINE RDW - SD 43.8 37.0 - 51.0 fL [facility] DEPARTMENT OF PATHOLOGY AND GENOMIC MEDICINE MPV 10.8 (H) 7.4 - 10.4 fL [facility] DEPARTMENT OF PATHOLOGY AND GENOMIC MEDICINE Platelet count 285 150 - 400 k/uL [facility] DEPARTMENT OF PATHOLOGY AND GENOMIC MEDICINE Nucleated RBC 0.00 /100 WBC [facility] DEPARTMENT OF PATHOLOGY AND GENOMIC MEDICINE Neutrophils 57.5 36.0 - 66.0 % [facility] DEPARTMENT OF PATHOLOGY AND GENOMIC MEDICINE Lymphocytes 35.2 24.0 - 44.0 % [facility] DEPARTMENT OF PATHOLOGY AND GENOMIC MEDICINE Monocytes 4.5 0.0 - 6.0 % [facility] DEPARTMENT OF PATHOLOGY AND GENOMIC MEDICINE Eosinophils 1.8 0.0 - 6.0 % [facility] DEPARTMENT OF PATHOLOGY AND GENOMIC MEDICINE Basophils 0.5 0.0 - 1.2 % [facility] DEPARTMENT OF PATHOLOGY AND GENOMIC MEDICINE Immature granulocytes 0.5 0.0 - 1.0 % [facility] DEPARTMENT OF PATHOLOGY AND GENOMIC MEDICINE Narrative Performed At [facility] DEPARTMENT OF PATHOLOGY AND GENOMIC MEDICINE Performing Organization Address City/State/[facility] Phone Number [facility] [address] [place] [address] PATHOLOGY AND GENOMIC MEDICINE * POC glycosylated hemoglobin (Hb A1C) (10/26/2017 11:14 AM CDT) POC Hemoglobin A1C 10.4 % Specimen Blood * Basic metabolic panel (08/27/2017 7:00 AM SLICING MACHINE FEEDER) Sodium 141 135 - 150 mEq/L [facility] DEPARTMENT OF PATHOLOGY AND GENOMIC MEDICINE Potassium 3.4 (L) 3.5 - 5.0 mEq/L [facility] DEPARTMENT OF PATHOLOGY AND GENOMIC MEDICINE Chloride 109 100 - 109 mEq/L [facility] DEPARTMENT OF PATHOLOGY AND GENOMIC MEDICINE CO2 23 (L) 24 - 32 mmol/L [facility] DEPARTMENT OF PATHOLOGY AND GENOMIC MEDICINE Anion gap 9 7 - 15 mEq/L [facility] DEPARTMENT OF Comment: PATHOLOGY AND Starting from October GENOMIC MEDICINE , anion gap calculation no longer incorporates potassium. Please note the change. BUN 6 (L) 7 - 18 mg/dL [facility] DEPARTMENT OF PATHOLOGY AND GENOMIC MEDICINE Creatinine 0.7 (L) 0.8 - 1.5 mg/dL [facility] DEPARTMENT OF PATHOLOGY AND GENOMIC MEDICINE Glucose 190 (H) 65 - 100 mg/dL [facility] DEPARTMENT OF PATHOLOGY AND GENOMIC MEDICINE Calcium 7.7 (L) 8.6 - 10.7 mg/dL [facility] DEPARTMENT OF PATHOLOGY AND GENOMIC MEDICINE Specimen Plasma specimen Performing Organization Address [facility] Centercode Phone Number [place] [address] [place] [phone] PATHOLOGY AND GENOMIC MEDICINE * Lactic acid level (08/26/2017 7:05 PM SLICING MACHINE FEEDER) Lactic acid 2.8 (H) 0.5 - 2.2 mmol/L [facility] DEPARTMENT OF PATHOLOGY AND GENOMIC MEDICINE Specimen Blood Performing Organization Address City/[facility] Phone Number [facility] [address] [place] [phone] PATHOLOGY AND GENOMIC MEDICINE * Echocardiogram complete w contrast and 3D if needed (08/26/2017 5:48 PM SLICING MACHINE FEEDER) Velocity Ratio (V1/V2) 0.68 m/s [facility] IVS,d 1.22 (A) 0.6 - 1.2 cm [facility] EF 49.42 % [facility] LVPWD,d 1.39 cm [facility] AoV Mean PG 3.00 mmHg [facility] AV LVOT peak gradient 2.47 mmHg [facility] MV valve area p 1/2 2.39 cm2 [facility] method PV Pk Grad 1.46 mmHg [facility] E/A ratio 0.95 [facility] E wave decelartion time 328.75 msec [facility] LVOT Diam,S 2.13 cm [facility] LVOT area 3.56 cm2 [facility] LVOT Vmax 0.79 m/s [facility] LVOT VTI 0.16 m [facility] AoV Peak PG 5.00 mmHg [facility] PV Mean Grad 0.65 mmHg [facility] MV Peak E Bhaskar 0.57 m/s [facility] MV stenosis pressure 1/2 92.13 ms [facility] time MV Peak A Bhaskar 0.60 m/s [facility] AoV Area, Vmax 2.51 cm2 [facility] AoV Area, VTI 3.30 cm2 [facility] AoV Vmax 1.16 m/s [facility] IVS/LVPW,2D 0.88 [facility] Left Atrium Dimension 3.52 cm [facility] Anterior LV,d 4.62 cm [facility] LV,s 3.47 cm [facility] PV VMAX 0.58 m/s [facility] PV VTI 0.14 m [facility] MV E A ratio 0.96 mmHg [facility] PV Vmn 0.37 [facility] Ao Root,d,2D 3.40 cm [facility] LV CO 3.72 l/min [facility] LV SYS VOL 49.83 ml [facility] LV MORILLO VOL 98.51 ml [facility] LV SV Teich 2D 48.69 ml [facility] LV Vol s Teich PSAX 49.83 ml [facility] LVOT CO 4.75 l/min [facility] LVOT HR for LVOT CO 81.50 bpm [facility] AoV Vmn 0.82 [facility] IVS s 2D 1.03 [facility] LV FS Cube 2D 24.95 [facility] LV FS Teich 2D 24.95 [facility] PV AT 187.86 msec [facility] AoV VTI 0.20 m [facility] LV EF,2D 57.73 % [facility] MV AE ratio 1.04 [facility] LVOT Vmn 0.50 [facility] Aov area Vmn 2.34 cm2 [facility] LVOT mean grad 1.20 mmHg [facility] MAX Pred HR 178.54 [facility] 85 of MPHR 151.76 [facility] Ao d LA s ratio 0.96 [facility] Calc MPHR 178.54 bpm [facility] IVS pct thck PLAX -15.46 % [facility] LV SV Cube 2D 57.06 ml [facility] LV vol d cube 2D 98.84 ml [facility] LV vol s cube 2D 41.78 ml [facility] LVPW pct thck PLAX -13.16 % [facility] LVPW s PLAX 1.21 cm [facility] MV Decel slope 1.73 m/s2 [facility] Pred Exer Dur R1 9.91 [facility] Pred METS R1 9.31 [facility] Narrative Performed At [facility] Left ventricular systolic function is normal. Left Ventricular ejection fraction is 50 - 55%. Normal left ventricular regional wall motion. Normal right ventricular size and function. No hemodynamically significant valvular stenosis or regurgitation. No pericardial effusion. No previous echo for comparison. Performing Organization Address [facility] Phone Number [facility] [address] [place] [address] * Blood culture, aerobic & anaerobic (08/26/2017 5:25 PM SLICING MACHINE FEEDER) Only the most recent of 2 results within the time period is included. Blood culture isolate No growth after 5 days of [facility] DEPARTMENT OF incubation. PATHOLOGY AND Comment: GENOMIC MEDICINE Specimen Information Specimen Source: Blood Specimen Site: Peripheral Hand Right Specimen Blood Performing Organization Address [facility] Phone Number [facility] DEPARTMENT OF [address] [place] [address] PATHOLOGY AND GENOMIC MEDICINE * XR Chest 1 Vw Portable (08/26/2017 5:14 PM SLICING MACHINE FEEDER) Narrative Performed At EXAMINATION:XR CHEST 1 VW PORTABLE [facility] CLINICAL HISTORY:r o PNA COMPARISON:August 26, 2017 1047 hours IMPRESSION: No acute abnormality on single view chest. No change compared to previous The lungs are clear. Moderate elevation right hemidiaphragm unchanged The heart is not enlarged. The bony structures are within normal limits. [id number] Procedure Note Hm Interface, Radiology Results Incoming - 08/26/2017 5:21 PM SLICING MACHINE FEEDER EXAMINATION: XR CHEST 1 VW PORTABLE CLINICAL HISTORY: r o PNA COMPARISON: August 26, 2017 1047 hours IMPRESSION: No acute abnormality on single view chest. No change compared to previous The lungs are clear. Moderate elevation right hemidiaphragm unchanged The heart is not enlarged. The bony structures are within normal limits. [id number] Performing Organization Address City/State/Zipcode Phone Number [facility] [address] [place] [address] * B natriuretic peptide (08/26/2017 5:14 PM SLICING MACHINE FEEDER) Only the most recent of 2 results within the time period is included. BNP 72 0 - 100 pg/mL [facility] DEPARTMENT OF PATHOLOGY AND GENOMIC MEDICINE Specimen Blood Performing Organization Address [facility] Cent[facility]ode Phone Number [address] [place] [address] PATHOLOGY AND GENOMIC MEDICINE * Alcohol level, blood (08/26/2017 5:14 PM SLICING MACHINE FEEDER) Alcohol None Detected mg/dL [facility] DEPARTMENT OF Comment: PATHOLOGY AND Normal GENOMIC MEDICINE None Detected Legal Intoxication in [place] 80 mg/dL (0.08%) Toxic Concentration 200 mg/dL (0.2%) Potentially Fatal 350-500 mg/dL (0.35%-0.5%) Alcohol percent None Detected % [facility] DEPARTMENT OF PATHOLOGY AND GENOMIC MEDICINE Specimen Blood Performing Organization Address [facility] Phone Number [address] [place] [phone] PATHOLOGY AND GENOMIC MEDICINE * Lactic acid level, SEPSIS - Now and repeat 2x every 3 hours (08/26/2017 4:01 PM SLICING MACHINE FEEDER) Only the most recent of 2 results within the time period is included. Lactic acid 3.2 (H) 0.5 - 2.2 mmol/L [facility] DEPARTMENT OF PATHOLOGY AND GENOMIC MEDICINE Specimen Blood Performing Organization Address [facility] Phone Number [facility] DEPARTMENT [address] [place] [address] PATHOLOGY AND GENOMIC MEDICINE * hCG qualitative, serum screen (08/26/2017 11:53 AM SLICING MACHINE FEEDER) Only the most recent of 3 results within the time period is included. hCG qualitative, serum Negative [facility] DEPARTMENT OF Comment: PATHOLOGY AND The manufacturers stated GENOMIC MEDICINE sensitivity of HcG test for serum is >/=10 mIU/ml and urine is >/=20mIU/ml. Specimen Blood Performing Organization Address [facility] Phone Number [address] [place] [address] PATHOLOGY AND GENOMIC MEDICINE * Thyroid stimulating hormone (08/26/2017 11:53 AM SLICING MACHINE FEEDER) TSH 2.00 0.38 - 4.82 uIU/mL [facility] DEPARTMENT OF PATHOLOGY AND GENOMIC MEDICINE Specimen Plasma specimen Performing Organization Address [facility] Phone Number [address] [place] [address] PATHOLOGY AND GENOMIC MEDICINE * T4, free (08/26/2017 11:53 AM SLICING MACHINE FEEDER) T4, free 1.09 0.70 - 1.61 ng/dL [facility] DEPARTMENT OF PATHOLOGY AND GENOMIC MEDICINE Specimen Plasma specimen Performing Organization Address [facility] Phone Number [address] [place] [address] PATHOLOGY AND GENOMIC MEDICINE * Hemoglobin A1c (08/26/2017 11:53 AM SLICING MACHINE FEEDER) Hemoglobin A1C 9.6 (H) 4.0 - 6.0 % [facility] DEPARTMENT OF Comment: PATHOLOGY AND GENOMIC MEDICINE Less than 6% - Goal of therapy for Type II Diabetes Less than 7%-Goal of therapy for Type I Diabetes Less than 8%-Accepta ble control for Type I or Type II Diabetes Greater than 8%-Unacceptabl e control; action indicated. ([id number]) Specimen Blood Performing Organization Address [facility] Phone Number [address] [place] [address] PATHOLOGY AND GENOMIC MEDICINE * Creatine kinase, total (CPK) (08/26/2017 11:53 AM SLICING MACHINE FEEDER) Creatine kinase 38 (L) 61 - 224 U/L [facility] DEPARTMENT OF PATHOLOGY AND GENOMIC MEDICINE Specimen Plasma specimen Performing Organization Address [facility] Phone Number [address] [place] [address] PATHOLOGY AND GENOMIC MEDICINE * XR Chest 2 Vw (08/26/2017 11:14 AM SLICING MACHINE FEEDER) Only the most recent of 2 results within the time period is included. Narrative Performed At EXAMINATION:XR CHEST 2 VW HM [facility] CLINICAL HISTORY:post svt stopped with adenosine XR CHEST 2 VWimages are submitted COMPARISON:June 2015 FINDINGS: The cardiac silhouette is normal in size. The pulmonary vasculature is within normal limits. The lung zones are clear. There is no pleural effusion or pneumothorax. IMPRESSION: 1. There is no acute cardiopulmonary disease. [facility]-[id number] Procedure Note Interface, Radiology Results Incoming - 08/26/2017 11:30 AM SLICING MACHINE FEEDER EXAMINATION: XR CHEST 2 VW CLINICAL HISTORY: post svt stopped with adenosine XR CHEST 2 VW images are submitted COMPARISON: June 2015 FINDINGS: The cardiac silhouette is normal in size. The pulmonary vasculature is within normal limits. The lung zones are clear. There is no pleural effusion or pneumothorax. IMPRESSION: 1. There is no acute cardiopulmonary disease. [facility]-[id number] Performing Organization Address City/State/Zipcode Phone Number [facility] [address] [place] [address] * CT Head Wo Contrast (08/03/2017 4:03 PM SLICING MACHINE FEEDER) Narrative Performed At EXAMINATION:CT HEAD WO CONTRAST [facility] CLINICAL HISTORY:HEADACHE COMPARISON:CT of the head dated October 02, 2016 FINDINGS: There is no evidence of acute hemorrhage, mass lesion, or midline shift. The otto-white matter differentiation is preserved with no evidence of acute territorial infarction. Ventricles, sulci, and cisterns are age-appropriate in size and configuration. There is no extra-axial fluid collection. There is sinus mucosal inflammatory disease involving the maxillary, ethmoid and frontal sinuses with air-fluid levels and frothy secretions highly suggestive of acute sinusitis. Bones, orbits, and soft tissues are unremarkable All CT images were acquired using low-dose technique with automated exposure control. IMPRESSION: No acute intracranial hemorrhage or mass effect. Acute sinusitis. [facility]-[id number] Procedure Note Interface, Radiology Results Incoming - 08/03/2017 4:15 PM SLICING MACHINE FEEDER EXAMINATION: CT HEAD WO CONTRAST CLINICAL HISTORY: HEADACHE COMPARISON: CT of the head dated October 02, 2016 FINDINGS: There is no evidence of acute hemorrhage, mass lesion, or midline shift. The otto-white matter differentiation is preserved with no evidence of acute territorial infarction. Ventricles, sulci, and cisterns are age-appropriate in size and configuration. There is no extra-axial fluid collection. There is sinus mucosal inflammatory disease involving the maxillary, ethmoid and frontal sinuses with air-fluid levels and frothy secretions highly suggestive of acute sinusitis. Bones, orbits, and soft tissues are unremarkable All CT images were acquired using low-dose technique with automated exposure control. IMPRESSION: No acute intracranial hemorrhage or mass effect. Acute sinusitis. [facility]-[id number] Performing Organization Address City/[facility]/Zipcode Phone Number [address] [address] * Gram stain (08/03/2017 2:45 PM SLICING MACHINE FEEDER) Gram stain result No WBC's [facility] DEPARTMENT OF Rare Gram variable rods PATHOLOGY AND Comment: GENOMIC MEDICINE Specimen Information Specimen Source: Urine Specimen Site: Clean catch Specimen Urine Performing Organization Address [facility] Phone Number [facility] DEPARTMENT [address] [address] PATHOLOGY AND GENOMIC MEDICINE * Strep screen culture (07/20/2017 6:31 AM SLICING MACHINE FEEDER) Strep screen culture No beta hemolytic Streptococci [facility] DEPARTMENT OF isolate isolated PATHOLOGY AND Comment: GENOMIC MEDICINE Specimen Information Specimen Source: Throat Specimen Site: Not otherwise specified Specimen Throat - Not otherwise specified Performing Organization Address [facility] Phone Number [facility] DEPARTMENT [address] [address] PATHOLOGY AND GENOMIC MEDICINE * Group A strep, rapid antigen (07/20/2017 2:21 AM SLICING MACHINE FEEDER) Group A strep, rapid Negative for Group A [facility] DEPARTMENT OF antigen result Streptococcus antigen. PATHOLOGY AND Comment: GENOMIC MEDICINE Specimen Information Specimen Source: Throat Specimen Site: Not otherwise specified Specimen Throat - Not otherwise specified Performing Organization Address [facility] Phone Number [facility] [place] [address] [place] [address] PATHOLOGY AND GENOMIC MEDICINE * Influenza antigen (07/10/2017 10:46 AM SLICING MACHINE FEEDER) Influenza antigen Negative for Influenza A/B [facility] DEPARTMENT OF antigen. PATHOLOGY AND Comment: GENOMIC MEDICINE Specimen Information Specimen Source: Nares Specimen Site: Not specified Not specified Specimen Nares - Left Performing Organization Address [facility] Phone Number [facility] [place] [address] [place] [address] PATHOLOGY AND GENOMIC MEDICINE after 07/05/2017 Insurance Payer Benefit Subscriber ID Type Phone Address Plan / Group [facility] D[facility] xxxxxxxxx HMO COMPLETE [facility] Advance Directives Patient has advance care planning documents on file. For more information, libby casas contact: John Garrido [address] [place] [address]
[2018-07-06] MEDS ORDERED: NITROGLYCERIN 0.4 MG SUBL SL ONE (18:30)
--- NOTE | 2018-07-06 19:06 | NUR ---
REPORT TO MAZIN GARCIA
[2018-07-06] MEDS ORDERED: ONDANSETRON HCL INJ 2 MG/ML VIAL IV STA (19:52)
[2018-07-06] MEDS ORDERED: MORPHINE SULFATE 2 MG/ML SYR IV STA ×2 (19:52→23:06)
[2018-07-06] MEDS ORDERED: SODIUM CHLORIDE FLUSH 10 ML SYR INJ PRN (20:00)
[2018-07-06] MEDS ORDERED: ASPIRIN 81 MG CHEW TAB PO ONE (20:00)
--- OUTSIDE RECORDS SUMMARY | 2018-07-06 20:43 | XMS REPORT | Clinical Summary ---
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 Telephone Family Medicine Julio Pireson MD Pain of right upper extremity (Primary [...] tachycardia); Acquired hypothyroidism; Chronic pain syndrome; Other teenage babysitter (current) drug therapy; Hypokalemia; Encounter for breast [...] ED PRELIMINARY Routine 08/27/2017 INTERPRETATION 11:32 AM BOAT OUTFITTING SUPERVISOR POC GLUCOSE Routine 08/27/2017 11:05 AM BOAT OUTFITTING SUPERVISOR ZZESTIMATED GFR Routine 08/27/2017 7:00 AM BOAT OUTFITTING SUPERVISOR BASIC METABOLIC PANEL Routine 08/27/2017 7:00 AM BOAT OUTFITTING SUPERVISOR POC GLUCOSE Routine 08/27/2017 6:42 AM BOAT OUTFITTING SUPERVISOR HC COMPLETE BLD COUNT Routine 08/27/2017 W/AUTO DIFF 4:27 AM BOAT OUTFITTING SUPERVISOR URINE CULTURE STAT 08/27/2017 1:00 AM BOAT OUTFITTING SUPERVISOR URINALYSIS SCREEN AND STAT 08/27/2017 MICROSCOPY, WITH REFLEX 12:57 AM BOAT OUTFITTING SUPERVISOR TO CULTURE LACTIC ACID LEVEL Timed 08/26/2017 7:05 PM BOAT OUTFITTING SUPERVISOR ECHOCARDIOGRAM 2D Routine 08/26/2017 COMPLETE W MMODE SPECTRAL 5:48 PM BOAT OUTFITTING SUPERVISOR COLOR DOPPLER ([id number]) BLOOD CULTURE, AEROBIC & Routine 08/26/2017 ANAEROBIC 5:25 PM BOAT OUTFITTING SUPERVISOR XR CHEST 1 VW PORTABLE STAT 08/26/2017 5:14 PM BOAT OUTFITTING SUPERVISOR B NATRIURETIC PEPTIDE STAT 08/26/2017 5:14 PM BOAT OUTFITTING SUPERVISOR ALCOHOL LEVEL, BLOOD Routine 08/26/2017 5:14 PM BOAT OUTFITTING SUPERVISOR BLOOD CULTURE, AEROBIC & Routine 08/26/2017 ANAEROBIC 5:14 PM BOAT OUTFITTING SUPERVISOR LACTIC ACID LEVEL, SEPSIS Timed 08/26/2017 - NOW AND REPEAT 2X EVERY 4:01 PM BOAT OUTFITTING SUPERVISOR 3 HOURS TROPONIN Timed 08/26/2017 4:01 PM BOAT OUTFITTING SUPERVISOR HEMOGLOBIN A1C Routine 08/26/2017 11:53 AM BOAT OUTFITTING SUPERVISOR ZZESTIMATED GFR STAT 08/26/2017 11:53 AM BOAT OUTFITTING SUPERVISOR T4, FREE STAT 08/26/2017 11:53 AM BOAT OUTFITTING SUPERVISOR THYROID STIMULATING STAT 08/26/2017 HORMONE 11:53 AM BOAT OUTFITTING SUPERVISOR LACTIC ACID LEVEL, SEPSIS STAT 08/26/2017 - NOW AND REPEAT 2X EVERY 11:53 AM BOAT OUTFITTING SUPERVISOR 3 HOURS HCG QUALITATIVE, SERUM STAT 08/26/2017 SCREEN 11:53 AM BOAT OUTFITTING SUPERVISOR CREATINE KINASE, TOTAL STAT 08/26/2017 (CPK) 11:53 AM BOAT OUTFITTING SUPERVISOR B NATRIURETIC PEPTIDE STAT 08/26/2017 11:53 AM BOAT OUTFITTING SUPERVISOR TROPONIN STAT 08/26/2017 11:53 AM BOAT OUTFITTING SUPERVISOR COMPREHENSIVE METABOLIC STAT 08/26/2017 PANEL 11:53 AM BOAT OUTFITTING SUPERVISOR PARTIAL THROMBOPLASTIN STAT 08/26/2017 TIME (PTT) 11:53 AM BOAT OUTFITTING SUPERVISOR PROTHROMBIN TIME WITH INR STAT 08/26/2017 11:53 AM BOAT OUTFITTING SUPERVISOR HC COMPLETE BLD COUNT STAT 08/26/2017 W/AUTO DIFF 11:53 AM BOAT OUTFITTING SUPERVISOR XR CHEST 2 VW STAT 08/26/2017 11:14 AM BOAT OUTFITTING SUPERVISOR ECG 12-LEAD STAT 08/26/2017 10:56 AM BOAT OUTFITTING SUPERVISOR ZZESTIMATED GFR STAT 08/04/2017 1:26 PM BOAT OUTFITTING SUPERVISOR HCG QUALITATIVE, SERUM STAT 08/04/2017 SCREEN 1:26 PM BOAT OUTFITTING SUPERVISOR COMPREHENSIVE METABOLIC STAT 08/04/2017 PANEL 1:26 PM BOAT OUTFITTING SUPERVISOR HC COMPLETE BLD COUNT STAT 08/04/2017 W/AUTO DIFF 1:26 PM BOAT OUTFITTING SUPERVISOR CT HEAD WO CONTRAST STAT 08/03/2017 4:03 PM BOAT OUTFITTING SUPERVISOR URINALYSIS SCREEN AND STAT 08/03/2017 MICROSCOPY, WITH REFLEX 2:45 PM BOAT OUTFITTING SUPERVISOR TO CULTURE GRAM STAIN STAT 08/03/2017 2:45 PM BOAT OUTFITTING SUPERVISOR URINE CULTURE STAT 08/03/2017 2:45 PM BOAT OUTFITTING SUPERVISOR ZZESTIMATED GFR STAT 08/03/2017 2:35 PM BOAT OUTFITTING SUPERVISOR HCG QUALITATIVE, SERUM STAT 08/03/2017 SCREEN 2:35 PM BOAT OUTFITTING SUPERVISOR COMPREHENSIVE METABOLIC STAT 08/03/2017 PANEL 2:35 PM BOAT OUTFITTING SUPERVISOR HC COMPLETE BLD COUNT STAT 08/03/2017 W/AUTO DIFF 2:35 PM BOAT OUTFITTING SUPERVISOR STREP SCREEN CULTURE Routine 07/20/2017 6:31 AM BOAT OUTFITTING SUPERVISOR GROUP A STREP, RAPID Routine 07/20/2017 ANTIGEN 2:21 AM BOAT OUTFITTING SUPERVISOR INFLUENZA ANTIGEN Routine 07/10/2017 10:46 AM BOAT OUTFITTING SUPERVISOR XR CHEST 2 VW STAT 07/10/2017 10:30 AM BOAT OUTFITTING SUPERVISOR after 07/05/2017 Results * XR Elbow 3+ Vw Right (12/23/2017 4:59 PM CDT) Narrative Performed At EXAMINATION:XR ELBOW 3VW RIGHT [facility] CLINICAL HISTORY:right elbow pain COMPARISON:None. IMPRESSION: There is no evidence of acute right elbow fracture, dislocation, or joint effusion. [facility]-[id number] Procedure Note Hm Interface, Radiology Results Incoming - 12/23/2017 5:04 PM CDT EXAMINATION: XR ELBOW 3 VW RIGHT CLINICAL HISTORY: right elbow pain COMPARISON: None. IMPRESSION: There is no evidence of acute right elbow fracture, dislocation, or joint effusion. [facility]-[id number] Performing Organization Address [facility]/Zipcode Phone Number [facility] [address] [place] [address] * Pv duplex venous upper extremity (12/23/2017 4:54 PM CDT) Narrative Performed At [facility] The right upper extremity was negative for deep vein thrombosis or superficial vein thrombosis. Performing Organization Address [facility]/Zipcode Phone Number [facility] [address] [place] [address] * POC glucose (12/23/2017 3:48 PM CDT) Only the most recent of 5 results within the time period is included. POC glucose 249 (H) 65 - 99 mg/dL [facility] DEPARTMENT OF Comment: PATHOLOGY AND Meter ID: [id number] GENOMIC MEDICINE Lead Network Engineer: Carmen Lou Performing Organization Address City/[facility]/Zipcode Phone Number [facility] DEPARTMENT OF [address] [place] [address] [place] [address] PATHOLOGY AND GENOMIC MEDICINE * Comprehensive metabolic panel (12/08/2017 9:59 AM CDT) Only the most recent of 5 results within the time period is included. Glucose 119 (H) 65 - 99 mg/dL [facility] BUN, whole blood 17 6 - 24 mg/dL [facility] Creatinine 0.95 0.57 - 1.00 mg/dL [facility] EGFR Non-Afr. Djib[place]ian 75 >59 mL/min/1.73 [facility] EGFR 86 >59 [...] Blood Narrative Performed At Performed at:01 - [facility] [address] [place], [place] [id number] Art Glass Setter: Fabricio Ibanez MD, Phone:[phone] Performing Organization Address City/State/[facility] Phone Number [facility] * ECG 12 lead (11/10/2017 5:49 PM CDT) Only the most recent of 2 results within the time period is included. Ventricular rate 80 [facility] MUSE Atrial rate 80 [facility] MUSE WI interval 152 [facility] M[facility] QRSD interval 92 [...] leads- Performing Organization Address City/State/Zipcode Phone Number [facility] [address] [place] [address] * Urinalysis screen and microscopy, with reflex to culture (11/10/2017 5:43 PM CDT) Only the most recent of 3 results within the time period is included. Specimen site Catheterized [facility] DEPARTMENT OF PATHOLOGY AND GENOMIC MEDICINE Color, UA Straw [facility] DEPARTMENT OF PATHOLOGY AND GENOMIC MEDICINE Appearance, UA Clear [facility] DEPARTMENT OF PATHOLOGY AND GENOMIC MEDICINE Specific gravity, UA 1.030 1.001 - 1.035 [facility] DEPARTMENT OF PATHOLOGY AND GENOMIC MEDICINE pH, UA 5.0 5.0 - 8.5 [facility] DEPARTMENT OF PATHOLOGY AND GENOMIC MEDICINE Protein, UA Negative Negative [facility] DEPARTMENT OF PATHOLOGY AND GENOMIC MEDICINE Glucose, UA 3+ (A) Negative [facility] DEPARTMENT OF PATHOLOGY AND GENOMIC MEDICINE Ketones, UA Trace (A) Negative [facility] DEPARTMENT OF PATHOLOGY AND GENOMIC MEDICINE Bilirubin, UA Negative Negative [facility] DEPARTMENT OF PATHOLOGY AND GENOMIC MEDICINE Blood, UA Small (A) Negative [facility] DEPARTMENT OF PATHOLOGY AND GENOMIC MEDICINE Nitrite, UA Negative Negative [facility] DEPARTMENT OF PATHOLOGY AND GENOMIC MEDICINE Urobilinogen, UA Negative <2.0 [facility] DEPARTMENT OF PATHOLOGY AND GENOMIC MEDICINE Leukocyte esterase, UA Negative Negative [facility] DEPARTMENT OF PATHOLOGY AND GENOMIC MEDICINE Epithelial cells, UA Few /HPF [facility] DEPARTMENT OF PATHOLOGY AND GENOMIC MEDICINE WBC, UA <1 0 - 5 /HPF [facility] DEPARTMENT OF PATHOLOGY AND GENOMIC MEDICINE RBC, UA 2 0 - 5 /HPF [facility] DEPARTMENT OF PATHOLOGY AND GENOMIC MEDICINE Bacteria, UA None seen None seen [facility] DEPARTMENT OF PATHOLOGY AND GENOMIC MEDICINE Yeast, UA None seen [facility] DEPARTMENT OF PATHOLOGY AND GENOMIC MEDICINE Yeast with pseudohyphae, None seen [facility] DEPARTMENT OF PATHOLOGY AND GENOMIC MEDICINE Specimen Urine Performing Organization Address City/[facility]/Zipcode Phone Number [place] [phone] [place] [address] PATHOLOGY AND GENOMIC MEDICINE * Urine culture (11/10/2017 5:43 PM CDT) Only the most recent of 3 results within the time period is included. Urine culture SEE COMMENTComment: [facility] DEPARTMENT OF Bacteriuria screen negative. PATHOLOGY AND GENOMIC MEDICINE Specimen Urine Performing Organization Address City/State/Zipcode Phone Number [facility] DEPARTMENT OF [address] [place] [address] PATHOLOGY AND GENOMIC MEDICINE * CTA Neck [...] of the cervical vessels by NASCET criteria. [facility]-[id number] Procedure Note Hm Interface, Radiology Results Incoming [...] of the cervical vessels by NASCET criteria. [facility]-[id number] Performing Organization Address City/State/Zipcode Phone Number [facility] [address] [place] [address] * CTA Head W Wo Contrast (11/10/2017 [...] aneurysmal dilatation or vascular malformation of the [place]. The left vertebral artery is dominant. There is origin of the right posterior cerebral artery. IMPRESSION: No hemodynamically significant narrowing of the [place] vessels. [facility]-[id number] Procedure Note Interface, Radiology Results Incoming - [...] aneurysmal dilatation or vascular malformation of the [place]. The left vertebral artery is dominant. There is origin of the right posterior cerebral artery. IMPRESSION: No hemodynamically significant narrowing of the [place] vessels. [facility]-[id number] Performing Organization Address City/State/Zipcode Phone Number [facility]IR[facility] KE[facility] [address] [place] [address] * ECG ED Preliminary Interpretation - NOT AN ORDER (11/10/2017 5:13 PM CDT) Only the most recent of 2 results within the time period is included. Narrative Performed At Karyn Bernal MD 11/10/20179:17 PM ECG ED Preliminary Interpretation - Not an Order Performed by: KARYN BERNAL Authorized by: KARYN BERNAL ECG reviewed by ED Physician in the absence of a golf teacher: yes Interpretation: Interpretation: normal Rate: ECG rate:80 [...] at 11/10/2017 5:06 PM who verbalized understanding. [id number] Procedure Note Interface, Radiology Results Incoming - [...] at 11/10/2017 5:06 PM who verbalized understanding. [id number] Performing Organization Address City/[facility] Phone Number [facility] [address] [place] [address] * Estimated GFR (11/10/2017 5:03 PM CDT) Only the most recent of 5 results within the time period is included. GFR Non Af Amer 49 (A) mL/min/1.73 m2 [facility] DEPARTMENT OF PATHOLOGY AND GENOMIC MEDICINE GFR Af Amer 60 mL/min/1.73 m2 [facility] DEPARTMENT OF Comment: PATHOLOGY AND Chronic kidney [...] Americans. Specimen Plasma specimen Performing Organization Address City/[facility]/Zipcode Phone Number [facility] [address] [place] [phone] PATHOLOGY AND [employer] MEDICINE * Troponin (11/10/2017 5:03 PM CDT) Only the most recent of 3 results within the time period is included. Troponin <0.01 0.00 - 0.60 ng/mL [facility] DEPARTMENT OF Comment: PATHOLOGY AND 0.11 - 1.49 GENOMIC MEDICINE ng/mlMay indicate increased risk of acute coronary syndrome. >=1.5 ng/ml Consistent with acute myocardial infarction. The diagnostic value of a single normal or non-diagnostic result is questionable.Serial samples at 2-6 hour intervals are required to rule out acute myocardial injury. Specimen Plasma specimen Performing Organization Address [facility] [place] [address] PATHOLOGY AND [employer] [facility] * Partial thromboplastin time, activated (11/10/2017 4:55 PM CDT) Only the most recent of 2 results within the time period is included. PTT 27.2 23.0 - 36.0 sec [facility] DEPARTMENT OF Comment: PATHOLOGY AND PTT therapeutic range for [employer] MEDICINE unfractionated heparin is 61.0-112.0 seconds which corresponds to Anti-Xa 0.3-0.7 U/ml. Note:Change in Panic Value The PTT Panic Value is changing from 110 sec. to 100 sec. due to new instrumentation and reagents. Correlation studies have been performed to validate this result. Specimen Blood Narrative Performed At code cva [facility] DEPARTMENT OF PATHOLOGY AND GENOMIC MEDICINE Performing Organization Address City/[facility] Phone Number [place] [phone] PATHOLOGY AND [employer] MEDICINE * Prothrombin time with INR (11/10/2017 4:55 PM CDT) Only the most recent of 2 results within the time period is included. Prothrombin time 12.2 12.0 - 15.0 sec [facility] DEPARTMENT OF PATHOLOGY AND [employer] MEDICINE INR 0.90 (L) 0.92 - 1.12 [facility] DEPARTMENT OF Comment: PATHOLOGY AND For patients on anticoagulant GENOMIC MEDICINE therapy, reference ranges below: Indication: INR Value Treatment of Venous Thrombosis, 2.0-3.0 pulmonary emboli, or prophylaxis of a venous thrombosis, or systemic emboli. High dose, high risk patients 3.0-4.5 with mechanical valves. NOTE:INR values over 3.0 are sometimes associated with gastrointestinal hemorrhage, especially values over 4.0. Specimen Blood Narrative Performed At [facility] DEPARTMENT OF PATHOLOGY AND GENOMIC MEDICINE Performing Organization Address City/State/Zipcode Phone Number [facility] [address] [place] [address] PATHOLOGY AND GENOMIC MEDICINE * CBC with platelet and differential (11/10/2017 4:55 PM CDT) Only the most recent of 5 results within the time period is included. WBC 11.0 4.2 - 11.0 k/uL [facility] DEPARTMENT OF PATHOLOGY AND GENOMIC MEDICINE RBC 4.50 4.04 - 5.86 m/uL [facility] DEPARTMENT OF PATHOLOGY AND GENOMIC MEDICINE HGB 13.4 11.5 - 15.3 g/dL [facility] DEPARTMENT OF PATHOLOGY AND GENOMIC MEDICINE HCT 40.2 34.0 - 45.0 % [facility] DEPARTMENT OF PATHOLOGY AND GENOMIC MEDICINE MCV 89.3 80.0 - 98.0 fL [facility] DEPARTMENT OF PATHOLOGY AND GENOMIC MEDICINE MCH 29.8 27.0 - 34.0 pg [facility] DEPARTMENT OF PATHOLOGY AND GENOMIC MEDICINE MCHC 33.3 31.5 - 36.5 g/dL [facility] DEPARTMENT OF PATHOLOGY AND GENOMIC MEDICINE RDW - SD 43.8 37.0 - 51.0 fL [facility] DEPARTMENT OF PATHOLOGY AND GENOMIC MEDICINE MPV 10.8 (H) 7.4 - 10.4 fL [facility] DEPARTMENT OF PATHOLOGY AND GENOMIC MEDICINE Platelet count 285 150 - 400 k/uL [facility] DEPARTMENT OF PATHOLOGY AND GENOMIC MEDICINE Nucleated RBC 0.00 /100 WBC [facility] DEPARTMENT OF PATHOLOGY AND GENOMIC MEDICINE Neutrophils 57.5 36.0 - 66.0 % [facility] DEPARTMENT OF PATHOLOGY AND GENOMIC MEDICINE Lymphocytes 35.2 24.0 - 44.0 % [facility] DEPARTMENT OF PATHOLOGY AND GENOMIC MEDICINE Monocytes 4.5 0.0 - 6.0 % [facility] DEPARTMENT OF PATHOLOGY AND GENOMIC MEDICINE Eosinophils 1.8 0.0 - 6.0 % [facility] DEPARTMENT OF PATHOLOGY AND GENOMIC MEDICINE Basophils 0.5 0.0 - 1.2 % [facility] DEPARTMENT OF PATHOLOGY AND GENOMIC MEDICINE Immature granulocytes 0.5 0.0 - 1.0 % [facility] DEPARTMENT OF PATHOLOGY AND GENOMIC MEDICINE Narrative Performed At [facility] DEPARTMENT OF PATHOLOGY AND GENOMIC MEDICINE Performing Organization Address City/State/[facility] Phone Number [facility] [address] [place] [address] PATHOLOGY AND GENOMIC MEDICINE * POC glycosylated hemoglobin (Hb A1C) (10/26/2017 11:14 AM CDT) POC Hemoglobin A1C 10.4 % Specimen Blood * Basic metabolic panel (08/27/2017 7:00 AM BOAT OUTFITTING SUPERVISOR) Sodium 141 135 - 150 mEq/L [facility] DEPARTMENT OF PATHOLOGY AND GENOMIC MEDICINE Potassium 3.4 (L) 3.5 - 5.0 mEq/L [facility] DEPARTMENT OF PATHOLOGY AND GENOMIC MEDICINE Chloride 109 100 - 109 mEq/L [facility] DEPARTMENT OF PATHOLOGY AND GENOMIC MEDICINE CO2 23 (L) 24 - 32 mmol/L [facility] DEPARTMENT OF PATHOLOGY AND GENOMIC MEDICINE Anion gap 9 7 - 15 mEq/L [facility] DEPARTMENT OF Comment: PATHOLOGY AND Starting from October GENOMIC MEDICINE , anion gap calculation no longer incorporates potassium. Please note the change. BUN 6 (L) 7 - 18 mg/dL [facility] DEPARTMENT OF PATHOLOGY AND GENOMIC MEDICINE Creatinine 0.7 (L) 0.8 - 1.5 mg/dL [facility] DEPARTMENT OF PATHOLOGY AND GENOMIC MEDICINE Glucose 190 (H) 65 - 100 mg/dL [facility] DEPARTMENT OF PATHOLOGY AND GENOMIC MEDICINE Calcium 7.7 (L) 8.6 - 10.7 mg/dL [facility] DEPARTMENT OF PATHOLOGY AND GENOMIC MEDICINE Specimen Plasma specimen Performing Organization Address [facility] Phone Number [place] [address] [place] [phone] PATHOLOGY AND GENOMIC MEDICINE * Lactic acid level (08/26/2017 7:05 PM BOAT OUTFITTING SUPERVISOR) Lactic acid 2.8 (H) 0.5 - 2.2 mmol/L [facility] DEPARTMENT OF PATHOLOGY AND GENOMIC MEDICINE Specimen Blood Performing Organization Address City/[facility] Phone Number [facility] [address] [place] [phone] PATHOLOGY AND GENOMIC MEDICINE * Echocardiogram complete w contrast and 3D if needed (08/26/2017 5:48 PM BOAT OUTFITTING SUPERVISOR) Velocity Ratio (V1/V2) 0.68 m/s [facility] [...] previous echo for comparison. Performing Organization Address [facility] Phone Number [facility] [address] [place] [address] * Blood culture, aerobic & anaerobic (08/26/2017 5:25 PM BOAT OUTFITTING SUPERVISOR) Only the most recent of 2 results within the time period is included. Blood culture isolate No growth after 5 days of [facility] DEPARTMENT OF incubation. PATHOLOGY AND Comment: GENOMIC MEDICINE Specimen Information Specimen Source: Blood Specimen Site: Peripheral Hand Right Specimen Blood Performing Organization Address [facility] Phone Number [facility] DEPARTMENT OF [address] [place] [address] PATHOLOGY AND GENOMIC MEDICINE * XR Chest 1 Vw Portable (08/26/2017 5:14 PM BOAT OUTFITTING SUPERVISOR) Narrative Performed At EXAMINATION:XR CHEST 1 VW PORTABLE [facility] CLINICAL HISTORY:r o PNA COMPARISON:August 26, 2017 1047 hours IMPRESSION: No acute abnormality on single view chest. No change compared to previous The lungs are clear. Moderate elevation right hemidiaphragm unchanged The heart is not enlarged. The bony structures are within normal limits. [id number] Procedure Note Hm Interface, Radiology Results Incoming - 08/26/2017 5:21 PM BOAT OUTFITTING SUPERVISOR EXAMINATION: XR CHEST 1 VW PORTABLE CLINICAL HISTORY: r o PNA COMPARISON: August 26, 2017 1047 hours IMPRESSION: No acute abnormality on single view chest. No change compared to previous The lungs are clear. Moderate elevation right hemidiaphragm unchanged The heart is not enlarged. The bony structures are within normal limits. [id number] Performing Organization Address City/State/Zipcode Phone Number [facility] [address] [place] [address] * B natriuretic peptide (08/26/2017 5:14 PM BOAT OUTFITTING SUPERVISOR) Only the most recent of 2 results within the time period is included. BNP 72 0 - 100 pg/mL [facility] DEPARTMENT OF PATHOLOGY AND GENOMIC MEDICINE Specimen Blood Performing Organization Address [facility] Phone Number [address] [place] [address] PATHOLOGY AND GENOMIC MEDICINE * Alcohol level, blood (08/26/2017 5:14 PM BOAT OUTFITTING SUPERVISOR) Alcohol None Detected mg/dL [facility] DEPARTMENT OF Comment: PATHOLOGY AND Normal GENOMIC MEDICINE None Detected Legal Intoxication in [place] 80 mg/dL (0.08%) Toxic Concentration 200 mg/dL (0.2%) Potentially Fatal 350-500 mg/dL (0.35%-0.5%) Alcohol percent None Detected % [facility] DEPARTMENT OF PATHOLOGY AND GENOMIC MEDICINE Specimen Blood Performing Organization Address [facility] Phone Number [address] [place] [phone] PATHOLOGY AND GENOMIC MEDICINE * Lactic acid level, SEPSIS - Now and repeat 2x every 3 hours (08/26/2017 4:01 PM BOAT OUTFITTING SUPERVISOR) Only the most recent of 2 results within the time period is included. Lactic acid 3.2 (H) 0.5 - 2.2 mmol/L [facility] DEPARTMENT OF PATHOLOGY AND GENOMIC MEDICINE Specimen Blood Performing Organization Address [facility] Phone Number [facility] DEPARTMENT [address] [place] [address] PATHOLOGY AND GENOMIC MEDICINE * hCG qualitative, serum screen (08/26/2017 11:53 AM BOAT OUTFITTING SUPERVISOR) Only the most recent of 3 results within the time period is included. hCG qualitative, serum Negative [facility] DEPARTMENT OF Comment: PATHOLOGY AND The manufacturers stated GENOMIC MEDICINE sensitivity of HcG test for serum is >/=10 mIU/ml and urine is >/=20mIU/ml. Specimen Blood Performing Organization Address [facility] [facility] Phone Number [address] [place] [address] PATHOLOGY AND GENOMIC MEDICINE * Thyroid stimulating hormone (08/26/2017 11:53 AM BOAT OUTFITTING SUPERVISOR) TSH 2.00 0.38 - 4.82 uIU/mL [facility] DEPARTMENT OF PATHOLOGY AND GENOMIC MEDICINE Specimen Plasma specimen Performing Organization Address [facility] Phone Number [address] [place] [address] PATHOLOGY AND GENOMIC MEDICINE * T4, free (08/26/2017 11:53 AM BOAT OUTFITTING SUPERVISOR) T4, free 1.09 0.70 - 1.61 ng/dL [facility] DEPARTMENT OF PATHOLOGY AND GENOMIC MEDICINE Specimen Plasma specimen Performing Organization Address [facility] Phone Number [address] [place] [address] PATHOLOGY AND GENOMIC MEDICINE * Hemoglobin A1c (08/26/2017 11:53 AM BOAT OUTFITTING SUPERVISOR) Hemoglobin A1C 9.6 (H) 4.0 - 6.0 % [facility] DEPARTMENT OF Comment: PATHOLOGY AND GENOMIC MEDICINE Less than 6% - Goal of therapy for Type II Diabetes Less than 7%-Goal of therapy for Type I Diabetes Less than 8%-Accepta ble control for Type I or Type II Diabetes Greater than 8%-Unacceptabl e control; action indicated. (ADA94) Specimen Blood Performing Organization Address [facility] Phone Number [address] [place] [address] PATHOLOGY AND GENOMIC MEDICINE * Creatine kinase, total (CPK) (08/26/2017 11:53 AM BOAT OUTFITTING SUPERVISOR) Creatine kinase 38 (L) 61 - 224 U/L [facility] DEPARTMENT OF PATHOLOGY AND GENOMIC MEDICINE Specimen Plasma specimen Performing Organization Address [facility] Phone Number [address] [place] [address] PATHOLOGY AND GENOMIC MEDICINE * XR Chest 2 Vw (08/26/2017 11:14 AM BOAT OUTFITTING SUPERVISOR) Only the most recent of 2 results [...] 1. There is no acute cardiopulmonary disease. [facility]-[id number] Procedure Note Interface, Radiology Results Incoming - 08/26/2017 11:30 AM BOAT OUTFITTING SUPERVISOR EXAMINATION: XR CHEST 2 VW CLINICAL HISTORY: post svt stopped with adenosine XR CHEST 2 VW images are submitted COMPARISON: June 2015 FINDINGS: The cardiac silhouette is normal in size. The pulmonary vasculature is within normal limits. The lung zones are clear. There is no pleural effusion or pneumothorax. IMPRESSION: 1. There is no acute cardiopulmonary disease. [id number] Performing Organization Address City/State/Zipcode Phone Number [facility] [address] [place] [address] * CT Head Wo Contrast (08/03/2017 4:03 PM BOAT OUTFITTING SUPERVISOR) Narrative Performed At EXAMINATION:CT HEAD WO CONTRAST [...] intracranial hemorrhage or mass effect. Acute sinusitis. [facility]-[id number] Procedure Note Interface, Radiology Results Incoming - 08/03/2017 4:15 PM BOAT OUTFITTING SUPERVISOR EXAMINATION: CT HEAD WO CONTRAST CLINICAL HISTORY: [...] intracranial hemorrhage or mass effect. Acute sinusitis. [facility]-[id number] Performing Organization Address City/[facility]/Zipcode Phone Number [address] [address] * Gram stain (08/03/2017 2:45 PM BOAT OUTFITTING SUPERVISOR) Gram stain result No WBC's [facility] DEPARTMENT OF Rare Gram variable rods PATHOLOGY AND Comment: GENOMIC MEDICINE Specimen Information Specimen Source: Urine Specimen Site: Clean catch Specimen Urine Performing Organization Address [facility] Phone Number [facility] DEPARTMENT [address] [address] PATHOLOGY AND GENOMIC MEDICINE * Strep screen culture (07/20/2017 6:31 AM BOAT OUTFITTING SUPERVISOR) Strep screen culture No beta hemolytic Streptococci [facility] DEPARTMENT OF isolate isolated PATHOLOGY AND Comment: GENOMIC MEDICINE Specimen Information Specimen Source: Throat Specimen Site: Not otherwise specified Specimen Throat - Not otherwise specified Performing Organization Address [facility] Phone Number [facility] DEPARTMENT [address] [address] PATHOLOGY AND GENOMIC MEDICINE * Group A strep, rapid antigen (07/20/2017 2:21 AM BOAT OUTFITTING SUPERVISOR) Group A strep, rapid Negative for Group A [facility] DEPARTMENT OF antigen result Streptococcus antigen. PATHOLOGY AND Comment: GENOMIC MEDICINE Specimen Information Specimen Source: Throat Specimen Site: Not otherwise specified Specimen Throat - Not otherwise specified Performing Organization Address [facility] Phone Number [facility] [place] [address] [place] [address] PATHOLOGY AND GENOMIC MEDICINE * Influenza antigen (07/10/2017 10:46 AM BOAT OUTFITTING SUPERVISOR) Influenza antigen Negative for Influenza A/B [facility] DEPARTMENT OF antigen. PATHOLOGY AND Comment: GENOMIC MEDICINE Specimen Information Specimen Source: Nares Specimen Site: Not specified Not specified Specimen Nares - Left Performing Organization Address [facility] Phone Number [facility] [place] [address] [place] [address] PATHOLOGY AND GENOMIC MEDICINE after 07/05/2017 Insurance Payer Benefit Subscriber ID Type Phone Address Plan / Group [facility] MEDICARE [facility] DUAL xxxxxxxxx HMO COMPLETE [facility] Advance Directives Patient has advance care planning documents on file. For more information, libby casas contact: John Garrido [address] [place] [address]
--- NOTE | 2018-07-06 22:28 | Diagnostic Imaging Report ---
EXAM: CT Chest WITH contrast (PE Protocol) INDICATION: Chest pain ^[id number] ^[id number] COMPARISON: None TECHNIQUE: Chest was scanned utilizing a multidetector helical scanner from the lung apex through the level of the diaphragm after administration of IV contrast. Thin section reconstructions were obtained with special concentration on the pulmonary arteries. Coronal and sagittal reformations were obtained. Pulmonary embolism protocol was performed. IV CONTRAST: 100 mL of Isovue-370 COMPLICATIONS: None RADIATION DOSE: Total DLP: 583.2 mGy*cm Estimated effective dose: (DLP x 0.014 x size factor) mSv CTDIvol has been reviewed. It is below the limits set by the Radiation Protocol Committee (RPC). Dose modulation, iterative reconstruction, and/or weight based adjustment of the mA/kV was utilized to reduce the radiation dose to as low as reasonably achievable. FINDINGS: LINES/ TUBES: None. LUNGS AND AIRWAYS: No filling defect is identified within the pulmonary arteries to the segmental level. The lungs are unremarkable. Airways are normal. PLEURA: The pleural spaces are clear. HEART AND MEDIASTINUM: The thyroid gland is normal. No mediastinal, hilar or axillary lymphadenopathy. The heart is normal in size.. There is no pericardial effusion. . Main pulmonary artery measures 2.8 cm in diameter and the ascending aorta measures 3.6 cm. UPPER ABDOMEN: Left hepatic 2.4 cm cyst. Cholecystectomy. Otherwise, unremarkable. BONES: There are mild degenerative changes in the thoracic spine. SOFT TISSUES: Unremarkable. IMPRESSION: No pulmonary emboli or acute thoracic abnormalities. Signed by: DR. Kings Briones MD on 07/06/2018 10:25 PM
[2018-07-06] MEDS ORDERED: HYDROCODONE/APAP 5MG-325MG TAB PO ONE (22:30)
--- NOTE | 2018-07-06 22:45 | NUR ---
INITALLY WAS TOLD BY PATIENT SHE WOULD RATHER GO HOME INSTEAD OF WAITING FOR POSSIBLE ROOM TO BE AVAILABLE, WHEN TOLD APPROX 2 HOURS LATER THAT ROOM BECAME AVAILABLE, PATIENT STILL DISCUSSED WITH MD DESIRE TO LEAVE HOME, MD NOTIFIED HER THAT IT WOULD BE AMA AND SHE AGREED, AFTER 15 MINUTES, PATIENT SO OTHER CAME OUT OF ROOM AND SAID PT CHANGED MIND AGAIN AND WOULD LIKE TO BE ADMITTED AFTER ALL. AMBULANCE CALLED, PENDING TRANSPORT
[2018-07-06] MEDS: NITROGLYCERIN 2% OINT 1 GM PKT TOP SCH (23:08)
[2018-07-07] VITALS (8 sets, daily range): BP systolic 109–130; BP diastolic 52–78
[2018-07-07] MEDS: MORPHINE SULFATE 2 MG/ML SYR IV PRN ×2 (03:54→08:20)
[2018-07-07] MEDS ORDERED: MORPHINE SULFATE INJ 4 MG/ML INJ ONE (03:55)
[2018-07-07] MEDS: NITROGLYCERIN 2% OINT 1 GM PKT TOP SCH (05:03)
[2018-07-07 07:04] LABS: CREATINE KINASE 33 IU/L (29-168)
[2018-07-07 07:27] LABS: CHOL/HDL RATIO 3.4 (3.0-3.6)
[2018-07-07] MEDS ORDERED: MORPHINE SULFATE INJ 4 MG/ML INJ IV PRN (08:00)
[2018-07-07] MEDS ORDERED: DEXTROSE 50% SYRINGE 50 ML IV PRN (09:30)
[2018-07-07] MEDS ORDERED: ACETAMINOPHEN 325 MG TAB PO PRN (09:30)
[2018-07-07] MEDS ORDERED: TRAJEO (09:33)
[2018-07-07] MEDS ORDERED: LEVOTHYROXINE100 MC1 IV (09:33)
[2018-07-07] MEDS ORDERED: VERAPAMIL ER120 MG (09:33)
[2018-07-07] MEDS ORDERED: JANUMET 50-5001 EACH (09:33)
[2018-07-07] MEDS ORDERED: TRAZODONE HCL50 MG PO (09:33)
[2018-07-07] MEDS ORDERED: HUMALOG100 UNIT/1 (09:33)
--- NOTE | 2018-07-07 09:58 | History and Physical ---
CHIEF COMPLAINT: Left-sided chest pain and left upper back pain. HISTORY OF PRESENT ILLNESS: A 43-year-old female, obese, with SVT episodically, not on any medication, came in with left-sided chest pain. The patient's CT of the chest was otherwise unremarkable. Lab work negative. The patient is otherwise stable at this time. She did have some headaches with her nitroglycerin. The patient is otherwise stable. PAST MEDICAL HISTORY: 1. Diabetes type 2. 2. Obesity. 3. Hypertension. 4. SVT. PAST SURGICAL HISTORY: Noncontributory. SOCIAL HISTORY: Patient does not smoke or use alcohol. No recreational drug use. ALLERGIES: TO ZOFRAN, GABAPENTIN, LISINOPRIL, TRAMADOL, CIPRO, ASPIRIN AND TORADOL. HOME MEDICATIONS: Not yet available. REVIEW OF SYSTEMS: As mentioned above. PHYSICAL EXAMINATION: VITAL SIGNS: Temperature is 98. Blood pressure 117/62. Pulse rate 70. Respirations 18. GENERAL: The patient is not in acute distress, is awake. HEENT: Normocephalic, atraumatic, nonicteric. NECK: Supple grossly. PULMONARY: Clear. CARDIOVASCULAR: Regular rate and rhythm. ABDOMEN: Soft, unremarkable, obese. EXTREMITIES: No cyanosis or edema. NEUROLOGIC: No gross focal deficit. LABORATORY: Sodium is 139, potassium 3.4, chloride 102, bicarb 22, BUN is 14, creatinine 1.1. Glucose is 232. WBC is 8.7, hemoglobin 13.1, hematocrit 38.8, platelet is 286. CT of the chest is negative. IMPRESSION: 1. Atypical chest pain. 2. Obesity with body mass index greater than 46. 3. Baseline diabetes type 2. PLAN: Continue with the home medication when available. Consultation with Dr. Mitch Larson. Echocardiogram. Hemoglobin A1c. Will monitor the patient on observation. Job#: [id number] EV
--- NOTE | 2018-07-07 10:38 | Consultation ---
DATE OF CONSULTATION: July 07, 2018 CARDIOLOGY CONSULTATION Thank you so much for asking me to see this nice lady in consultation. Ms. Wong is a complex 43-year-old woman who has recently moved here from [place], [place], who reports that she had new onset of left-sided chest discomfort yesterday. HISTORY OF PRESENT ILLNESS: The patient reports this was sudden onset while she was driving a car, including the left side of her chest and radiated to the left side and left back. She reports it is continuous and is relieved somewhat when she holds very still. PAST MEDICAL HISTORY: Significant for type 2 adult-onset diabetes, onset at age 19. Only recently added insulin for her management. She reports that she is disabled for mental issues. She has had remote cholecystectomy and C-sections. CURRENT MEDICATIONS: Include at home: 1. Humalog 15 units at bedtime. 2. Levothyroxine. 3. Sitagliptin. 4. Trazodone. 5. Verapamil. PERSONAL/SOCIAL HISTORY: Patient continues to smoke. PHYSICAL EXAMINATION GENERAL: Shows a large obese white woman who is missing a left front tooth, otherwise comfortable. HEENT: Unremarkable. NECK: No jugular venous distention. THORAX: Chest wall is nontender. HEART: Sounds S1 and S2 are equal. No murmurs. LUNGS: Clear. There is large healed null on her back. ABDOMEN: Protuberant. EXTREMITIES: No cyanosis, clubbing or edema. EKG is unremarkable. Initial troponin normal. Cholesterol 127. Glucose 254. ASSESSMENT 1. Atypical chest discomfort. 2. Obesity. 3. Type 2 adult-onset diabetes. 4. Disability due to mental problems. 5. Possible history of arrhythmia. PLAN: Will give her a trial of indomethacin and check echo and Cardiolite. Further management will be based on clinical course. Job#: [id number] RI
[2018-07-07] MEDS: INDOMETHACIN 25 MG CAP PO SCH ×3 (11:30→21:00)
[2018-07-07] MEDS: INSULIN LISPRO 100 UNIT/1 ML 3ML VIAL SQ SCH ×3 (12:30→21:44)
[2018-07-07] MEDS: ACETAMIN/BUTALBITAL/CAFFEINE TAB PO PRN ×2 (12:40→20:10)
[2018-07-07] MEDS: METFORMIN HCL 500 MG TAB CR PO SCH (12:40)
[2018-07-07] MEDS: VERAPAMIL HCL 120 MG TABSR PO SCH (12:40)
[2018-07-07] MEDS: SITAGLIPTIN 100 MG TAB PO SCH (12:51)
[2018-07-07] MEDS: INSULIN DETEMIR 100 UNIT/ML PEN SQ SCH (13:30)
[2018-07-07 15:17] LABS: CREATINE KINASE 32 IU/L (29-168)
[2018-07-07] MEDS: NICOTINE 21 MG/EA PATCH TOP SCH (16:10)
[2018-07-07] MEDS ORDERED: TRAZODONE HCL 50 MG TAB PO SCH (21:00)
[2018-07-07] MEDS ORDERED: NON-FORMULARY MEDICATION (Insulin Lispro (Humalog) 15 UNITS) BLADIN SCH (21:00)
[2018-07-07] MEDS ORDERED: INSULIN LISPRO 100 UNIT/1 ML 3ML VIAL SQ SCH (21:00)
[2018-07-08] VITALS: BP 118/65
[2018-07-08 00:05] VITALS: BP 118/65
[2018-07-08 00:12] LABS: CREATINE KINASE 29 IU/L (29-168)
[2018-07-08 04:00] VITALS: BP 118/81
[2018-07-08] MEDS ORDERED: LEVOTHYROXINE SODIUM 100 MCG TAB PO SCH (06:00)
[2018-07-08] MEDS ORDERED: LEVOTHYROXINE SODIUM 100 MCG/VIAL IV SCH (06:00)
[2018-07-08] MEDS: INSULIN LISPRO 100 UNIT/1 ML 3ML VIAL SQ SCH ×3 (07:30→16:26)
[2018-07-08 08:03] VITALS: BP 153/70
[2018-07-08] MEDS: VERAPAMIL HCL 120 MG TABSR PO SCH (08:40)
[2018-07-08] MEDS: INDOMETHACIN 25 MG CAP PO SCH ×2 (08:40→14:51)
[2018-07-08] MEDS: NICOTINE 21 MG/EA PATCH TOP SCH (08:50)
[2018-07-08] MEDS ORDERED: [UNRECOGNIZED DRUG - OTHER] SQ SCH (09:00)
[2018-07-08] MEDS ORDERED: METFORMIN HCL SCH (09:00)
[2018-07-08] MEDS ORDERED: VERAPAMIL HCL 120 MG TABSR PO SCH (09:00)
[2018-07-08] MEDS ORDERED: [UNRECOGNIZED DRUG - OTHER] SCH (09:00)
[2018-07-08] MEDS ORDERED: [UNRECOGNIZED DRUG - OTHER] SCH (09:00)
[2018-07-08] MEDS ORDERED: SITAGLIPTIN PHOS SCH (09:00)
[2018-07-08] MEDS ORDERED: REGADENOSON 0.4 MG/5 ML SYR IV ONE (10:11)
[2018-07-08] MEDS: SITAGLIPTIN 100 MG TAB PO SCH (11:00)
[2018-07-08] MEDS: INSULIN DETEMIR 100 UNIT/ML PEN SQ SCH (11:00)
[2018-07-08] MEDS: METFORMIN HCL 500 MG TAB CR PO SCH (11:00)
[2018-07-08 11:38] VITALS: BP 140/95
[2018-07-08] MEDS: ACETAMIN/BUTALBITAL/CAFFEINE TAB PO PRN (13:10)
--- NOTE | 2018-07-08 15:29 | NUR ---
SPOKE W BEDSIDE NURSE, GLORIA, REGARDING DC PLAN. STATES MOON WILL F/U ON GATED STRESS TEST RESULTS. CHRISTIE WILL SEE PT LATER TODAY. WILL CONTINUE TO FOLLOW PT.
[2018-07-08 15:56] VITALS: BP 114/69
--- NOTE | 2018-07-08 17:00 | NUR ---
Patient left against medical advice. Patient was informed of pros and cons up to including . Dr. Kenny made aware. AMA paper signed per patient. IV removed prior to departure.
--- NOTE | 2018-07-08 18:06 | Cardiology Report ---
DATE OF STUDY: July 08, 2018 LEXISCAN MYOVIEW This is a 2-day Lexiscan Myoview. On July 08, due to the inability to exercise, the patient was given Lexiscan 0.4 mg intravenously and shortly afterwards 33 mCi of technetium-99m Myoview. Perfusion images were taken by rotational tomography. Comparison of resting and Lexiscan stress images shows small fixed anteroseptal defects suggesting soft tissue attenuation. There is no distinct fixed or reversible defects to suggest any scarring or ischemia. Additionally, gated wall motion images were obtained and calculated ejection fraction normal at 62% without regional wall motion abnormality. FINAL IMPRESSION 1. Probably normal Lexiscan Myoview for perfusion. 2. Small area of anteroseptal soft tissue attenuation. 3. No distinct evidence of any scar or ischemia. 4. Normal left ventricular function with calculated ejection fraction of 62%. Job#: [id number] GH cc:ONOFRE CHRISTIE MD
--- NOTE | 2018-07-08 18:11 | Discharge Summary ---
CONSULTANTS: Dr. Mitch Larson. FINAL DIAGNOSES: 1. Chest pain status post Myoview Cardiolite stress test, pending result. 2. Patient signed out against medical advice. SUMMARY: A 43-year-old female came in with chest pain. The patient was having some headaches, resolved with medication. She also has baseline diabetes, hypertension and hypothyroidism. Patient had negative cardiac enzymes, but because of her risk factors, she had a cardiac Cardiolite stress test, a Myoview. The patient had echocardiogram as well. Echocardiogram was stable. The patient had an echocardiogram ejection fraction of 55%. She had trace MR and LVE. The patient is stable. She signed out against medical advice. The patient's stress test was still pending. The patient was stable. Signed out against medical advice. Job#: [id number] EV
== END 2018-07-08 17:47 | disposition left against medical advice (07) ==
LOC: FSED 17:49 → ERHOLD 19:58 → IMCU 07-07 00:12
PROVIDERS: ADMIT Internal Medicine; ATTEND Internal Medicine
DX: R07.89 Other chest pain (principal); I11.9 Hypertensive heart disease without heart failure; Z53.29 Procedure and treatment not carried out because of patient's decision for other reasons; E11.9 Type 2 diabetes mellitus without complications; Z79.4 Long term (current) use of insulin; Z79.84 Long term (current) use of oral hypoglycemic drugs; E03.9 Hypothyroidism, unspecified; I47.1 Supraventricular tachycardia; E66.01 Morbid (severe) obesity due to excess calories; Z68.42 Body mass index [BMI] 45.0-49.9, adult; Z88.6 Allergy status to analgesic agent; Z88.1 Allergy status to other antibiotic agents; Z88.5 Allergy status to narcotic agent; Z88.8 Allergy status to other drugs, medicaments and biological substances
CPT/HCPCS: 36415 ×2; 71260; 78452; 80053; 80061; 82550; 82553 ×2; 82948 ×2; 84484; 85025; 93005; 93017; 93306; 99284; A9502; G0378 ×3; J2270 ×2; J2405; J2785

== ENCOUNTER 2018-07-23 21:00 | Emergency (ER) | payer MEDICARE ==
[~2018-07-23] VITALS: Ht 160 cm; Wt 117.9 kg
[~2018-07-23 21:00] MED LIST: HUMALOG100 UNIT/1; JANUMET 50-5001 EACH; LEVOTHYROXINE100 MC1 IV; TRAJEO; TRAZODONE HCL50 MG PO; VERAPAMIL ER120 MG
--- OUTSIDE RECORDS SUMMARY | 2018-07-23 21:03 | XMS REPORT | Clinical Summary ---
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 11/25/2017 Discontinued levothyroxine (SYNTHROID, Take 300 mcg 0 LEVOXYL) 300 mcg tablet by mouth daily. 10/26/2017 Discontinued metFORMIN (GLUCOPHAGE) Take 1,000 mg 0 1,000 mg tablet by mouth 2 (two) times a day. 08/27/2017 Discontinued ZANAFLEX 4 mg tablet Take 4 mg by 0 mouth 2 (two) 7 times a day. 08/26/2017 Discontinued mirtazapine (REMERON Take 30 mg [...] for cough for up to 30 days. 12/08/2017 Discontinued traZODone (DESYREL) 150 Take 300 mg 0 MG tablet by mouth 7 nightly. 12/08/2017 Discontinued ARIPiprazole (ABILIFY) 30 Take 30 mg by 0 MG tablet mouth daily. 7 08/26/2017 Discontinued buPROPion SR (WELLBUTRIN 0 SR) 150 MG 12 hr tablet 7 08/26/2017 Discontinued BYDUREON 2 mg/0.65 mL pen 0 injector 7 08/26/2017 Discontinued glipiZIDE (GLUCOTROL) 10 0 MG tablet 7 07/23/2017 lidocaine HCl (lidocaine) 15 [...] tablet by mouth 8 daily. 12/08/2017 Discontinued TOUJEGrace KELLER U-300 Inject 44 0 INSULIN 300 unit/mL [...] Katie Martins MD 10/27/2017 Telephone Internal Medicine Kaite Martins MD Type 2 diabetes mellitus with hyperglycemia, without long- term current use of insulin (Primary Dx); Anemia, unspecified type; Menorrhagia with regular cycle; PSVT (paroxysmal supraventricular tachycardia); Acquired hypothyroidism; Chronic pain syndrome; Other jail (current) drug therapy; Hypokalemia; Encounter for breast [...] Emergency Emergency Medicine 07/31/2017 Emergency Emergency Medicine after 07/22/2017 Immunizations Name Dates Previously Given Next Due [...] DIABETIC FOOT EXAM 1986 URINE MICROALBUMIN 1986 CERVICAL CANCER SCREENING 1997 INFLUENZA VACCINE 02/24/2018 DIABETIC RETINAL EYE EXAM 2018 2017 Procedures Comments Procedure Name Priority Date/Time Associated [...] ED PRELIMINARY Routine 08/27/2017 INTERPRETATION 11:32 AM RADIOLOGY SPECIALIST POC GLUCOSE Routine 08/27/2017 11:05 AM RADIOLOGY SPECIALIST ZZESTIMATED GFR Routine 08/27/2017 7:00 AM RADIOLOGY SPECIALIST BASIC METABOLIC PANEL Routine 08/27/2017 7:00 AM RADIOLOGY SPECIALIST POC GLUCOSE Routine 08/27/2017 6:42 AM RADIOLOGY SPECIALIST HC COMPLETE BLD COUNT Routine 08/27/2017 W/AUTO DIFF 4:27 AM RADIOLOGY SPECIALIST URINE CULTURE STAT 08/27/2017 1:00 AM RADIOLOGY SPECIALIST URINALYSIS SCREEN AND STAT 08/27/2017 MICROSCOPY, WITH REFLEX 12:57 AM RADIOLOGY SPECIALIST TO CULTURE LACTIC ACID LEVEL Timed 08/26/2017 7:05 PM RADIOLOGY SPECIALIST ECHOCARDIOGRAM 2D Routine 08/26/2017 COMPLETE W MMODE SPECTRAL 5:48 PM RADIOLOGY SPECIALIST COLOR DOPPLER ([id number]) BLOOD CULTURE, AEROBIC & Routine 08/26/2017 ANAEROBIC 5:25 PM RADIOLOGY SPECIALIST XR CHEST 1 VW PORTABLE STAT 08/26/2017 5:14 PM RADIOLOGY SPECIALIST B NATRIURETIC PEPTIDE STAT 08/26/2017 5:14 PM RADIOLOGY SPECIALIST ALCOHOL LEVEL, BLOOD Routine 08/26/2017 5:14 PM RADIOLOGY SPECIALIST BLOOD CULTURE, AEROBIC & Routine 08/26/2017 ANAEROBIC 5:14 PM RADIOLOGY SPECIALIST LACTIC ACID LEVEL, SEPSIS Timed 08/26/2017 - NOW AND REPEAT 2X EVERY 4:01 PM RADIOLOGY SPECIALIST 3 HOURS TROPONIN Timed 08/26/2017 4:01 PM RADIOLOGY SPECIALIST HEMOGLOBIN A1C Routine 08/26/2017 11:53 AM RADIOLOGY SPECIALIST ZZESTIMATED GFR STAT 08/26/2017 11:53 AM RADIOLOGY SPECIALIST T4, FREE STAT 08/26/2017 11:53 AM RADIOLOGY SPECIALIST THYROID STIMULATING STAT 08/26/2017 HORMONE 11:53 AM RADIOLOGY SPECIALIST LACTIC ACID LEVEL, SEPSIS STAT 08/26/2017 - NOW AND REPEAT 2X EVERY 11:53 AM RADIOLOGY SPECIALIST 3 HOURS HCG QUALITATIVE, SERUM STAT 08/26/2017 SCREEN 11:53 AM RADIOLOGY SPECIALIST CREATINE KINASE, TOTAL STAT 08/26/2017 (CPK) 11:53 AM RADIOLOGY SPECIALIST B NATRIURETIC PEPTIDE STAT 08/26/2017 11:53 AM RADIOLOGY SPECIALIST TROPONIN STAT 08/26/2017 11:53 AM RADIOLOGY SPECIALIST COMPREHENSIVE METABOLIC STAT 08/26/2017 PANEL 11:53 AM RADIOLOGY SPECIALIST PARTIAL THROMBOPLASTIN STAT 08/26/2017 TIME (PTT) 11:53 AM RADIOLOGY SPECIALIST PROTHROMBIN TIME WITH INR STAT 08/26/2017 11:53 AM RADIOLOGY SPECIALIST HC COMPLETE BLD COUNT STAT 08/26/2017 W/AUTO DIFF 11:53 AM RADIOLOGY SPECIALIST XR CHEST 2 VW STAT 08/26/2017 11:14 AM RADIOLOGY SPECIALIST ECG 12-LEAD STAT 08/26/2017 10:56 AM RADIOLOGY SPECIALIST ZZESTIMATED GFR STAT 08/04/2017 1:26 PM RADIOLOGY SPECIALIST HCG QUALITATIVE, SERUM STAT 08/04/2017 SCREEN 1:26 PM RADIOLOGY SPECIALIST COMPREHENSIVE METABOLIC STAT 08/04/2017 PANEL 1:26 PM RADIOLOGY SPECIALIST HC COMPLETE BLD COUNT STAT 08/04/2017 W/AUTO DIFF 1:[address] HEAD WO CONTRAST STAT 08/03/2017 4:03 PM RADIOLOGY SPECIALIST URINALYSIS SCREEN AND STAT 08/03/2017 MICROSCOPY, WITH REFLEX 2:45 PM RADIOLOGY SPECIALIST TO CULTURE GRAM STAIN STAT 08/03/2017 2:45 PM RADIOLOGY SPECIALIST URINE CULTURE STAT 08/03/2017 2:45 PM RADIOLOGY SPECIALIST ZZESTIMATED GFR STAT 08/03/2017 2:35 PM RADIOLOGY SPECIALIST HCG QUALITATIVE, SERUM STAT 08/03/2017 SCREEN 2:35 PM RADIOLOGY SPECIALIST COMPREHENSIVE METABOLIC STAT 08/03/2017 PANEL 2:35 PM RADIOLOGY SPECIALIST HC COMPLETE BLD COUNT STAT 08/03/2017 W/AUTO DIFF 2:35 PM RADIOLOGY SPECIALIST after 07/22/2017 Results * XR Elbow 3+ Vw Right (12/23/2017 4:59 PM CDT) Narrative Performed At EXAMINATION:XR ELBOW 3VW RIGHT [facility] CLINICAL HISTORY:right elbow pain COMPARISON:None. IMPRESSION: There is no evidence of acute right elbow fracture, dislocation, or joint effusion. [facility]-[id number] Procedure Note Hm Interface, Radiology Results Incoming - 12/23/2017 5:04 PM CDT EXAMINATION: XR ELBOW 3 VW RIGHT CLINICAL HISTORY: right elbow pain COMPARISON: None. IMPRESSION: There is no evidence of acute right elbow fracture, dislocation, or joint effusion. [facility]-[id number] Performing Organization Address City/[facility]/Zipcode Phone Number [facility] [address] [place] [address] * Pv duplex venous upper extremity (12/23/2017 4:54 PM CDT) Narrative Performed At [facility] The right upper extremity was negative for deep vein thrombosis or superficial vein thrombosis. Performing Organization Address City/[facility]/Zipcode Phone Number [facility] [address] [place] [address] * POC glucose (12/23/2017 3:48 PM CDT) Only the most recent of 5 results within the time period is included. POC glucose 249 (H) 65 - 99 mg/dL [facility] DEPARTMENT OF Comment: PATHOLOGY AND Meter ID: [id number] GENOMIC MEDICINE Waste Disposal Leakage Tester: Carmen Lou Performing Organization Address City/State/Zipcode Phone Number [facility] DEPARTMENT OF [address] [place] [address] [place] [address] PATHOLOGY AND GENOMIC MEDICINE * Comprehensive metabolic panel (12/08/2017 9:59 AM CDT) Only the most recent of 5 results within the time period is included. Glucose 119 (H) 65 - 99 mg/dL [facility] BUN, whole blood 17 6 - 24 mg/dL [facility] Creatinine 0.95 0.57 - 1.00 mg/dL [facility] EGFR Non-Afr. [place] 75 >59 mL/min/1.73 [facility] EGFR 86 >59 [...] Blood Narrative Performed At Performed at:01 [facility] [address] [place], [id number] Registered Nurse Cardiac Telemetry: Fabricio Ibanez MD, Phone:[phone] Performing Organization Address City/State/[facility] Phone Number [facility] * ECG 12 lead (11/10/2017 5:49 PM CDT) Only the most recent of 2 results within the time period is included. Ventricular rate 80 [facility] Atrial rate 80 [facility] NC interval 152 [facility] QRSD interval 92 [...] leads- Performing Organization Address City/State/Zipcode Phone Number [facility] [address] [place] [address] * Urinalysis screen and microscopy, with reflex to culture (11/10/2017 5:43 PM CDT) Only the most recent of 3 results within the time period is included. Specimen site Catheterized [facility] DEPARTMENT OF PATHOLOGY AND GENOMIC MEDICINE Color, UA Straw [facility] DEPARTMENT OF PATHOLOGY AND GENOMIC MEDICINE Appearance, UA Clear [facility] DEPARTMENT OF PATHOLOGY AND GENOMIC MEDICINE Specific gravity, UA 1.030 1.001 - 1.035 [facility] DEPARTMENT OF PATHOLOGY AND GENOMIC MEDICINE pH, UA 5.0 5.0 - 8.5 [facility] DEPARTMENT OF PATHOLOGY AND GENOMIC MEDICINE Protein, UA Negative Negative [facility] DEPARTMENT OF PATHOLOGY AND GENOMIC MEDICINE Glucose, UA 3+ (A) Negative [facility] DEPARTMENT OF PATHOLOGY AND GENOMIC MEDICINE Ketones, UA Trace (A) Negative [facility] DEPARTMENT OF PATHOLOGY AND GENOMIC MEDICINE Bilirubin, UA Negative Negative [facility] DEPARTMENT OF PATHOLOGY AND GENOMIC MEDICINE Blood, UA Small (A) Negative [facility] DEPARTMENT OF PATHOLOGY AND GENOMIC MEDICINE Nitrite, UA Negative Negative [facility] DEPARTMENT OF PATHOLOGY AND GENOMIC MEDICINE Urobilinogen, UA Negative <2.0 [facility] DEPARTMENT OF PATHOLOGY AND GENOMIC MEDICINE Leukocyte esterase, UA Negative Negative [facility] DEPARTMENT OF PATHOLOGY AND GENOMIC MEDICINE Epithelial cells, UA Few /HPF [facility] DEPARTMENT OF PATHOLOGY AND GENOMIC MEDICINE WBC, UA <1 0 - 5 /HPF [facility] DEPARTMENT OF PATHOLOGY AND GENOMIC MEDICINE RBC, UA 2 0 - 5 /HPF [facility] DEPARTMENT OF PATHOLOGY AND GENOMIC MEDICINE Bacteria, UA None seen None seen [facility] DEPARTMENT OF PATHOLOGY AND GENOMIC MEDICINE Yeast, UA None seen [facility] DEPARTMENT OF PATHOLOGY AND GENOMIC MEDICINE Yeast with pseudohyphae, None seen [facility] DEPARTMENT OF PATHOLOGY AND GENOMIC MEDICINE Specimen Urine Performing Organization Address City/State/Zipcode Phone Number [place] [phone] [place] [address] PATHOLOGY AND GENOMIC MEDICINE * Urine culture (11/10/2017 5:43 PM CDT) Only the most recent of 3 results within the time period is included. Urine culture SEE COMMENTComment: [facility] DEPARTMENT OF Bacteriuria screen negative. PATHOLOGY AND GENOMIC MEDICINE Specimen Urine Performing Organization Address City/State/Zipcode Phone Number [facility] DEPARTMENT OF [address] [place] [address] PATHOLOGY AND GENOMIC MEDICINE * CTA Neck [...] of the cervical vessels by NASCET criteria. [id number] Procedure Note Interface, Radiology Results Incoming - 11/10/2017 5:40 [...] of the cervical vessels by NASCET criteria. [id number] Performing Organization Address City/State/Zipcode Phone Number [facility] [address] [place] [address] * CTA Head W Wo Contrast (11/10/2017 5:27 PM CDT) Narrative Performed At EXAMINATION: CT ANGIOGRAM HEAD W WO [facility] CL[facility]: numbness left side COMPARISON:CT brain [...] aneurysmal dilatation or vascular malformation of the [place]. The left vertebral artery is dominant. There is origin of the right posterior cerebral artery. IMPRESSION: No hemodynamically significant narrowing of the [place] vessels. [facility]-[id number] Procedure Note Interface, Radiology Results Incoming - [...] aneurysmal dilatation or vascular malformation of the [place]. The left vertebral artery is dominant. There is origin of the right posterior cerebral artery. IMPRESSION: No hemodynamically significant narrowing of the [place] vessels. [id number] Performing Organization Address City/State/Zipcode Phone Number [facility] [address] [place] [address] * ECG ED Preliminary Interpretation - NOT AN ORDER (11/10/2017 5:13 PM CDT) Only the most recent of 2 results within the time period is included. Narrative Performed At Karyn Bernal MD 11/10/20179:17 PM ECG ED Preliminary Interpretation - Not an Order Performed by: KARYN BERNAL Authorized by: KARYN BERNAL ECG reviewed by ED Physician in the absence of a dental laboratory supervisor: yes Interpretation: Interpretation: normal Rate: ECG rate:80 ECG rate assessment: normal Rhythm: Rhythm: sinus rhythm Ectopy: Ectopy: none QRS: QRS axis:Normal QRS intervals:Normal Conduction: Conduction: normal ST segments: ST segments:Normal T waves: T waves: normal Comments: Read by Dr. Karyn Bernal at 1741 on 11/10/17 * CT Stroke Brain Wo Contrast (11/10/2017 5:03 PM CDT) Narrative Performed At EXAMINATION: CT STROKE BRAIN WO CONTRAST [facility] CLINICAL HISTORY: numbness left side COMPARISON:Brain CT [...] at 11/10/2017 5:06 PM who verbalized understanding. [id number] Procedure Note Hm Interface, Radiology Results Incoming - 11/10/2017 5:18 [...] at 11/10/2017 5:06 PM who verbalized understanding. [facility]-[id number] Performing Organization Address City/State/Zipcode Phone Number [facility] [address] [place] [address] * Estimated GFR (11/10/2017 5:03 PM CDT) Only the most recent of 5 results within the time period is included. GFR Non Af Amer 49 (A) mL/min/1.73 m2 [facility] DEPARTMENT OF PATHOLOGY AND GENOMIC MEDICINE GFR Af Amer 60 mL/min/1.73 m2 [facility] DEPARTMENT OF Comment: PATHOLOGY AND Chronic kidney [...] Americans. Specimen Plasma specimen Performing Organization Address City/State/Zipcode Phone Number [facility] [place] [address] PATHOLOGY AND [employer] [facility]ICINE * Troponin (11/10/2017 5:03 PM CDT) Only the most recent of 3 results within the time period is included. Troponin <0.01 0.00 - 0.60 ng/mL [facility] DEPARTMENT OF Comment: PATHOLOGY AND 0.11 - 1.49 GENOMIC MEDICINE ng/mlMay indicate increased risk of acute coronary syndrome. >=1.5 ng/ml Consistent with acute myocardial infarction. The diagnostic value of a single normal or non-diagnostic result is questionable.Serial samples at 2-6 hour intervals are required to rule out acute myocardial injury. Specimen Plasma specimen Performing Organization Address City/State/Zipcode Phone Number [facility] [address] [facility] [place] [address] PATHOLOGY AND [employer] MEDICINE * Partial thromboplastin time, activated (11/10/2017 4:55 PM CDT) Only the most recent of 2 results within the time period is included. PTT 27.2 23.0 - 36.0 sec [facility] DEPARTMENT OF Comment: PATHOLOGY AND PTT therapeutic range for GENOMIC MEDICINE unfractionated heparin is 61.0-112.0 seconds which corresponds to Anti-Xa 0.3-0.7 U/ml. Note:Change in Panic Value The PTT Panic Value is changing from 110 sec. to 100 sec. due to new instrumentation and reagents. Correlation studies have been performed to validate this result. Specimen Blood Narrative Performed At code cva [facility] DEPARTMENT OF PATHOLOGY AND GENOMIC MEDICINE Performing Organization Address City/State/Zipcode Phone Number [facility] [address] [facility] [place] [address] PATHOLOGY AND [employer] MEDICINE * Prothrombin time with INR (11/10/2017 4:55 PM CDT) Only the most recent of 2 results within the time period is included. Prothrombin time 12.2 12.0 - 15.0 sec [facility] DEPARTMENT OF PATHOLOGY AND [employer] [facility] INR 0.90 (L) 0.92 - 1.12 [facility] DEPARTMENT OF Comment: PATHOLOGY AND For patients on anticoagulant GENOMIC MEDICINE therapy, reference ranges below: Indication: INR Value Treatment of Venous Thrombosis, 2.0-3.0 pulmonary emboli, or prophylaxis of a venous thrombosis, or systemic emboli. High dose, high risk patients 3.0-4.5 with mechanical valves. NOTE:INR values over 3.0 are sometimes associated with gastrointestinal hemorrhage, especially values over 4.0. Specimen Blood Narrative Performed At [facility] OF PATHOLOGY AND GENOMIC MEDICINE Performing Organization Address City/State/Zipcode Phone Number [place] [address] [place] [address] PATHOLOGY AND GENOMIC MEDICINE * CBC with platelet and differential (11/10/2017 4:55 PM CDT) Only the most recent of 5 results within the time period is included. WBC 11.0 4.2 - 11.0 k/uL [facility] DEPARTMENT OF PATHOLOGY AND GENOMIC MEDICINE RBC 4.50 4.04 - 5.86 m/uL [facility] OF PATHOLOGY AND GENOMIC MEDICINE HGB 13.4 11.5 - 15.3 g/dL [facility] DEPARTMENT OF PATHOLOGY AND GENOMIC MEDICINE HCT 40.2 34.0 - 45.0 % [facility] DEPARTMENT OF PATHOLOGY AND GENOMIC MEDICINE MCV 89.3 80.0 - 98.0 fL [facility] DEPARTMENT OF PATHOLOGY AND GENOMIC MEDICINE MCH 29.8 27.0 - 34.0 pg [facility] DEPARTMENT OF PATHOLOGY AND GENOMIC MEDICINE MCHC 33.3 31.5 - 36.5 g/dL [facility] DEPARTMENT OF PATHOLOGY AND GENOMIC MEDICINE RDW - SD 43.8 37.0 - 51.0 fL [facility] DEPARTMENT OF PATHOLOGY AND GENOMIC MEDICINE MPV 10.8 (H) 7.4 - 10.4 fL [facility] DEPARTMENT OF PATHOLOGY AND GENOMIC MEDICINE Platelet count 285 150 - 400 k/uL [facility] DEPARTMENT OF PATHOLOGY AND GENOMIC MEDICINE Nucleated RBC 0.00 /100 WBC [facility] DEPARTMENT OF PATHOLOGY AND GENOMIC MEDICINE Neutrophils 57.5 36.0 - 66.0 % [facility] DEPARTMENT OF PATHOLOGY AND GENOMIC MEDICINE Lymphocytes 35.2 24.0 - 44.0 % [facility] DEPARTMENT OF PATHOLOGY AND GENOMIC MEDICINE Monocytes 4.5 0.0 - 6.0 % [facility] DEPARTMENT OF PATHOLOGY AND GENOMIC MEDICINE Eosinophils 1.8 0.0 - 6.0 % [facility] DEPARTMENT OF PATHOLOGY AND GENOMIC MEDICINE Basophils 0.5 0.0 - 1.2 % [facility] DEPARTMENT OF PATHOLOGY AND GENOMIC MEDICINE Immature granulocytes 0.5 0.0 - 1.0 % [facility] DEPARTMENT OF PATHOLOGY AND GENOMIC MEDICINE Narrative Performed At [facility] OF PATHOLOGY AND GENOMIC MEDICINE Performing Organization Address City/[facility]/Zipcode Phone Number [facility] [address] [place] [address] PATHOLOGY AND GENOMIC MEDICINE * POC glycosylated hemoglobin (Hb A1C) (10/26/2017 11:14 AM CDT) POC Hemoglobin A1C 10.4 % Specimen Blood * Basic metabolic panel (08/27/2017 7:00 AM RADIOLOGY SPECIALIST) Sodium 141 135 - 150 mEq/L [facility] DEPARTMENT OF PATHOLOGY AND GENOMIC MEDICINE Potassium 3.4 (L) 3.5 - 5.0 mEq/L [facility] DEPARTMENT OF PATHOLOGY AND GENOMIC MEDICINE Chloride 109 100 - 109 mEq/L [facility] DEPARTMENT OF PATHOLOGY AND GENOMIC MEDICINE CO2 23 (L) 24 - 32 mmol/L [facility] DEPARTMENT OF PATHOLOGY AND GENOMIC MEDICINE Anion gap 9 7 - 15 mEq/L [facility] DEPARTMENT OF Comment: PATHOLOGY AND Starting from October [facility] , anion gap calculation no longer incorporates potassium. Please note the change. BUN 6 (L) 7 - 18 mg/dL [facility] DEPARTMENT OF PATHOLOGY AND GENOMIC MEDICINE Creatinine 0.7 (L) 0.8 - 1.5 mg/dL [facility] DEPARTMENT OF PATHOLOGY AND GENOMIC MEDICINE Glucose 190 (H) 65 - 100 mg/dL [facility] DEPARTMENT OF PATHOLOGY AND GENOMIC MEDICINE Calcium 7.7 (L) 8.6 - 10.7 mg/dL [facility] DEPARTMENT OF PATHOLOGY AND GENOMIC MEDICINE Specimen Plasma specimen Performing Organization Address City/[facility]ode Phone Number [place] [address] [place] [address] PATHOLOGY AND GENOMIC MEDICINE * Lactic acid level (08/26/2017 7:05 PM RADIOLOGY SPECIALIST) Lactic acid 2.8 (H) 0.5 - 2.2 mmol/L [facility] DEPARTMENT OF PATHOLOGY AND GENOMIC MEDICINE Specimen Blood Performing Organization Address City/[facility] Centercode Phone Number [facility] [address] [place] [address] PATHOLOGY AND [employer] MEDICINE * Echocardiogram complete w contrast and 3D if needed (08/26/2017 5:48 PM RADIOLOGY SPECIALIST) Velocity Ratio (V1/V2) 0.68 m/s [facility] [...] previous echo for comparison. Performing Organization Address [facility] Phone Number [facility] [address] [place] [address] * Blood culture, aerobic & anaerobic (08/26/2017 5:25 PM RADIOLOGY SPECIALIST) Only the most recent of 2 results within the time period is included. Blood culture isolate No growth after 5 days of [facility] DEPARTMENT OF incubation. PATHOLOGY AND Comment: GENOMIC MEDICINE Specimen Information Specimen Source: Blood Specimen Site: Peripheral Hand Right Specimen Blood Performing Organization Address [facility] Phone Number [facility] DEPARTMENT OF [address] [place] [address] PATHOLOGY AND GENOMIC MEDICINE * XR Chest 1 Vw Portable (08/26/2017 5:14 PM RADIOLOGY SPECIALIST) Narrative Performed At EXAMINATION:XR CHEST 1 VW PORTABLE [facility] CLINICAL HISTORY:r o PNA COMPARISON:August 26, 2017 1047 hours IMPRESSION: No acute abnormality on single view chest. No change compared to previous The lungs are clear. Moderate elevation right hemidiaphragm unchanged The heart is not enlarged. The bony structures are within normal limits. [id number] Procedure Note Interface, Radiology Results Incoming - 08/26/2017 5:21 PM RADIOLOGY SPECIALIST EXAMINATION: XR CHEST 1 VW PORTABLE CLINICAL HISTORY: r o PNA COMPARISON: August 26, 2017 1047 hours IMPRESSION: No acute abnormality on single view chest. No change compared to previous The lungs are clear. Moderate elevation right hemidiaphragm unchanged The heart is not enlarged. The bony structures are within normal limits. [id number] Performing Organization Address City/State/Zipcode Phone Number [facility] [address] [place] [address] * B natriuretic peptide (08/26/2017 5:14 PM RADIOLOGY SPECIALIST) Only the most recent of 2 results within the time period is included. BNP 72 0 - 100 pg/mL [facility] DEPARTMENT OF PATHOLOGY AND GENOMIC MEDICINE Specimen Blood Performing Organization Address [facility] Centercode Phone Number [address] [place] [address] PATHOLOGY AND GENOMIC MEDICINE * Alcohol level, blood (08/26/2017 5:14 PM RADIOLOGY SPECIALIST) Alcohol None Detected mg/dL [facility] DEPARTMENT OF Comment: PATHOLOGY AND Normal GENOMIC MEDICINE None Detected Legal Intoxication in [place] 80 mg/dL (0.08%) Toxic Concentration 200 mg/dL (0.2%) Potentially Fatal 350-500 mg/dL (0.35%-0.5%) Alcohol percent None Detected % [facility] DEPARTMENT OF PATHOLOGY AND GENOMIC MEDICINE Specimen Blood Performing Organization Address [facility] Phone Number [address] [place] [id number] PATHOLOGY AND GENOMIC MEDICINE * Lactic acid level, SEPSIS - Now and repeat 2x every 3 hours (08/26/2017 4:01 PM RADIOLOGY SPECIALIST) Only the most recent of 2 results within the time period is included. Lactic acid 3.2 (H) 0.5 - 2.2 mmol/L [facility] [facility] DEPART[facility] OF PATHOLOGY AND GENOMIC MEDICINE Specimen Blood Performing Organization Address [facility] Phone Number [address] [place] [address] PATHOLOGY AND GENOMIC MEDICINE * hCG qualitative, serum screen (08/26/2017 11:53 AM RADIOLOGY SPECIALIST) Only the most recent of 3 results within the time period is included. hCG qualitative, serum Negative [facility] DEPARTMENT OF Comment: PATHOLOGY AND The manufacturers stated GENOMIC MEDICINE sensitivity of HcG test for serum is >/=10 mIU/ml and urine is >/=20mIU/ml. Specimen Blood Performing Organization Address [facility]/Zipcode Phone Number [address] [place] [address] PATHOLOGY AND GENOMIC MEDICINE * Thyroid stimulating hormone (08/26/2017 11:53 AM RADIOLOGY SPECIALIST) TSH 2.00 0.38 - 4.82 uIU/mL [facility] DEPARTMENT OF PATHOLOGY AND GENOMIC MEDICINE Specimen Plasma specimen Performing Organization Address [facility] Phone Number [address] [place] [address] PATHOLOGY AND GENOMIC MEDICINE * T4, free (08/26/2017 11:53 AM RADIOLOGY SPECIALIST) T4, free 1.09 0.70 - 1.61 ng/dL [facility] DEPARTMENT OF PATHOLOGY AND GENOMIC MEDICINE Specimen Plasma specimen Performing Organization Address [facility] Phone Number [address] [place] [address] PATHOLOGY AND GENOMIC MEDICINE * Hemoglobin A1c (08/26/2017 11:53 AM RADIOLOGY SPECIALIST) Hemoglobin A1C 9.6 (H) 4.0 - 6.0 % [facility] DEPARTMENT OF Comment: PATHOLOGY AND GENOMIC MEDICINE Less than 6% - Goal of therapy for Type II Diabetes Less than 7%-Goal of therapy for Type I Diabetes Less than 8%-Accepta ble control for Type I or Type II Diabetes Greater than 8%-Unacceptabl e control; action indicated. ([id number]) Specimen Blood Performing Organization Address [facility] [place] [address] PATHOLOGY AND GENOMIC MEDICINE * Creatine kinase, total (CPK) (08/26/2017 11:53 AM RADIOLOGY SPECIALIST) Creatine kinase 38 (L) 61 - 224 U/L [facility] DEPARTMENT OF PATHOLOGY AND GENOMIC MEDICINE Specimen Plasma specimen Performing Organization Address [facility] Phone Number [address] [place] [address] PATHOLOGY AND GENOMIC MEDICINE * XR Chest 2 Vw (08/26/2017 11:14 AM RADIOLOGY SPECIALIST) Narrative Performed At EXAMINATION:XR CHEST 2 VW HM [facility] CLINICAL HISTORY:post svt stopped with adenosine XR CHEST 2 VWimages are submitted COMPARISON:June 2015 FINDINGS: The cardiac silhouette is normal in size. The pulmonary vasculature is within normal limits. The lung zones are clear. There is no pleural effusion or pneumothorax. IMPRESSION: 1. There is no acute cardiopulmonary disease. [facility]-[id number] Procedure Note Interface, Radiology Results Incoming - 08/26/2017 11:30 AM RADIOLOGY SPECIALIST EXAMINATION: XR CHEST 2 VW CLINICAL HISTORY: post svt stopped with adenosine XR CHEST 2 VW images are submitted COMPARISON: June 2015 FINDINGS: The cardiac silhouette is normal in size. The pulmonary vasculature is within normal limits. The lung zones are clear. There is no pleural effusion or pneumothorax. IMPRESSION: 1. There is no acute cardiopulmonary disease. [facility]-[id number] Performing Organization Address City/State/Zipcode Phone Number [facility] [address] [place] [address] * CT Head Wo Contrast (08/03/2017 4:03 PM RADIOLOGY SPECIALIST) Narrative Performed At EXAMINATION:CT HEAD WO CONTRAST [...] intracranial hemorrhage or mass effect. Acute sinusitis. [facility]-[id number] Procedure Note Interface, Radiology Results Incoming - 08/03/2017 4:15 PM RADIOLOGY SPECIALIST EXAMINATION: CT HEAD WO CONTRAST CLINICAL HISTORY: [...] intracranial hemorrhage or mass effect. Acute sinusitis. [facility]-[id number] Performing Organization Address City/State/Zipcode Phone Number [facility] [address] [place] [address] * Gram stain (08/03/2017 2:45 PM RADIOLOGY SPECIALIST) Gram stain result No WBC's [facility] DEPARTMENT OF Rare Gram variable rods PATHOLOGY AND Comment: GENOMIC MEDICINE Specimen Information Specimen Source: Urine Specimen Site: Clean catch Specimen Urine Performing Organization Address City/State/Zipcode Phone Number [facility] DEPARTMENT OF [address] [place] [address] PATHOLOGY AND GENOMIC MEDICINE after 07/22/2017 Insurance Payer Benefit Subscriber ID Type Phone Address Plan / Group [facility] DUAL xxxxxxxxx O COMPLETE [facility] (Home) [place] [address] Advance Directives Patient has advance care planning documents on file. For more information, libby casas contact: John Garrido [address] [place] [address]
--- OUTSIDE RECORDS SUMMARY | 2018-07-23 21:04 | XMS REPORT ---
Author Author [facility] Address Unknown Phone Unavailable Care Team Providers Care Dope Pourer Name Role Phone ONOFRE CHRISTIE Unavailable Unavailable Problems This patient has no known problems. Allergies, Adverse Reactions, Alerts This patient has no known allergies or adverse reactions. Medications This patient has no known medications. Results Test Description Test Time Test Comments Text Results Atomic Results Result Comments Stress Test - Treadmill ONLY 2018-07-08 17:44:00 [place] [address] Patient Name : MAIA SOTO MR #: [id number] : 1975 Age/Sex: 43/F Adm Physician : ONOFRE CHRISTIE MD Admit Date : 07/06/18 Location : [facility] Room/Bed : [place] [address] REPORT: Cardiology Report DATE OF STUDY: July 08, 2018 LEXISCAN MYOVIEW This is a 2-day Lexiscan Myoview. On July 08, due to the inability to exercise, the patient was given Lexiscan 0.4 mg intravenously and shortly afterwards 33 mCi of technetium-99m Myoview. Perfusion images were taken by rotational tomography. Comparison of resting and Lexiscan stress images shows small fixed anteroseptal defects suggesting soft tissue attenuation. There is no distinct fixed or reversible defects to suggest any scarring or ischemia. Additionally, gated wall motion images were obtained and calculated ejection fraction normal at 62% without regional wall motion abnormality. FINAL IMPRESSION 1. Probably normal Lexiscan Myoview for perfusion. 2. Small area of anteroseptal soft tissue attenuation. 3. No distinct evidence of any scar or ischemia. 4. Normal left ventricular function with calculated ejection fraction of 62%. Job#: [id number] GH cc: ONOFRE CHRISTIE MD Signature Date Dictated By: LINDA MOON MD Transcribed By: SMEDS on 07/08/18 <Electronically signed by LINDA MOON MD><<Signature on File>>07/12/18 1102 COPY TO: CT CHEST WITH CONTRAST-HOPD 2018-07-06 22:18:00 [place] [address] Patient Name: MAIA SOTO MR #: [id number] : 1975 Age/Sex: 43/F Req #: [id number] [facility] Physician: ONOFRE CHRISTIE MD Ordered by: JESSENIA NAPIER MD Report #: [id number] Location: [facility] Room/Bed: [place] [address] Procedure: [id number] HOPD/CT CHEST WITH CONTRAST-HOPD Exam Date: 07/06/18 Exam Time: 2149 REPORT STATUS: Signed EXAM: CT Chest WITH contrast (PE Protocol) INDICATION: Chest pain [id number] COMPARISON: None TECHNIQUE: Chest was scanned utilizing a multidetector helical scanner from the lung apex through the level of the diaphragm after administration of IV contrast. Thin section reconstructions were obtained with special concentration on the pulmonary arteries. Coronal and sagittal reformations were obtained. Pulmonary embolism protocol was performed. IV CONTRAST: 100 mL of Isovue-370 COMPLICATIONS: None RADIATION DOSE: Total DLP: 583.2 mGy*cm Estimated effective dose: (DLP x 0.014 x size factor) mSv CTDIvol has been reviewed. It is below the limits set by the Radiation Protocol Committee (RPC). Dose modulation, iterative reconstruction, and/or weight based adjustment of the mA/kV was utilized to reduce the radiation dose to as low as reasonably achievable. FINDINGS: LINES/ TUBES: None. LUNGS AND AIRWAYS: No filling defect is identified within the pulmonary arteries to the segmental level. The lungs are unremarkable. Airways are normal. PLEURA: The pleural spaces are clear. HEART AND MEDIASTINUM: The thyroid gland is normal. No mediastinal, hilar or axillary lymphadenopathy. The heart is normal in size.. There is no pericardial effusion. . Main pulmonary artery measures 2.8 cm in diameter and the ascending aorta measures 3.6 cm. UPPER ABDOMEN: Left hepatic 2.4 cm cyst. Cholecystectomy. Otherwise, unremarkable. BONES: There are mild degenerative changes in the thoracic spine. SOFT TISSUES: Unremarkable. IMPRESSION: No pulmonary emboli or acute thoracic abnormalities. Signed by: DR. Kings Bojorquez MD on 07/06/2018 10:25 PM Dictated By: KINGS BOJORQUEZ MD 24 Transcribed By: KATHERIN on 07/06/182224 COPY TO: JESSENIA NAPIER MD
[2018-07-23] MEDS ORDERED: ONDANSETRON HCL INJ 2 MG/ML VIAL IV STA (22:14)
[2018-07-23] MEDS ORDERED: MORPHINE SULFATE 5 MG/ML VIAL IV ONE (22:15)
[2018-07-23] MEDS ORDERED: LORAZEPAM INJ 2 MG/ML VIAL IV ONE (22:15)
[2018-07-23] MEDS ORDERED: SODIUM CHLORIDE 0.9% 1000ML 1,000 ML IV ONE (22:15)
== END 2018-07-23 23:59 | disposition home or self-care (01) ==
LOC: FSED 21:00
DX: G43.109 Migraine with aura, not intractable, without status migrainosus (principal); I10 Essential (primary) hypertension; E11.40 Type 2 diabetes mellitus with diabetic neuropathy, unspecified; E03.9 Hypothyroidism, unspecified; F17.210 Nicotine dependence, cigarettes, uncomplicated
CPT/HCPCS: 99283; J7030

== ENCOUNTER 2018-10-08 20:36 | Emergency (ER) | payer MEDICARE ==
[~2018-10-08] VITALS: Ht 160 cm; Wt 119.3 kg
--- OUTSIDE RECORDS SUMMARY | 2018-10-08 20:38 | XMS REPORT | Clinical Summary ---
Author Author [facility] [employer] [facility] [employer] Address Unknown Phone Unavailable Care Team Providers Care Pump Operator Name Role Phone Katie Martins MD PCP Allergies Comments Active Allergy Reactions Severity Noted Date Pt can take ibuprofen; Unknown aspirin reaction; Transcribed during Nonpareil Cutover, please verify: Aspirin Hives Low 12/06/2016 [...] tablet MG) BY MOUTH DAILY WITH BREAKFAST 11/25/2017 Discontinued levothyroxine (SYNTHROID, Take 300 mcg 0 LEVOXYL) 300 mcg tablet by mouth daily. 10/26/2017 Discontinued metFORMIN (GLUCOPHAGE) Take 1,000 mg 0 1,000 mg tablet by mouth 2 (two) times a day. 12/08/2017 Discontinued traZODone (DESYREL) 150 Take 300 mg 0 MG tablet by mouth 7 nightly. 12/08/2017 Discontinued ARIPiprazole (ABILIFY) 30 Take 30 mg by 0 MG tablet mouth daily. 7 11/25/2017 Discontinued verapamil (CALAN) 120 MG Take [...] (DESYREL) 150 Take 2 60 tablet 0 12/08/201 MG tablet tablets (300 8 mg total) [...] Description Date Type Specialty Katie Martins MD Type 2 diabetes mellitus with diabetic neuropathy, with long- term current use of insulin (HCC) 08/15/2018 Refill Internal Medicine Katie Martins MD 04/01/2018 Orders Only Internal [...] tachycardia); Acquired hypothyroidism; Chronic pain syndrome; Other machine long goods helper (current) drug therapy; Hypokalemia; Encounter for breast cancer screening other than mammogram; Need for Streptococcus pneumoniae vaccination 10/26/2017 Office Visit Internal Medicine after 10/07/2017 Immunizations Name Dates Previously Given Next Due [...] INFLUENZA VACCINE 02/24/2018 DIABETIC RETINAL EYE EXAM 2019 2017 Procedures Comments Procedure Name Priority Date/Time [...] hyperglycemia, without long-term current use of insulin after 10/07/2017 Results * XR Elbow 3+ Vw Right (12/23/2017 4:59 PM CDT) Narrative Performed At EXAMINATION:XR ELBOW 3VW RIGHT [facility] CLINICAL HISTORY:right elbow pain COMPARISON:None. IMPRESSION: There is no evidence of acute right elbow fracture, dislocation, or joint effusion. [facility]-[id number] Procedure Note Hm Interface, Radiology Results Incoming - 12/23/2017 5:04 PM CDT EXAMINATION: XR ELBOW 3 VW RIGHT CLINICAL HISTORY: right elbow pain COMPARISON: None. IMPRESSION: There is no evidence of acute right elbow fracture, dislocation, or joint effusion. [facility]-[id number] Performing Organization Address City/[facility]/Zipcode Phone Number [facility] [address] [place] [address] * Pv duplex venous upper extremity (12/23/2017 4:54 PM CDT) Narrative Performed At [facility] The right upper extremity was negative for deep vein thrombosis or superficial vein thrombosis. Performing Organization Address City/[facility]/Zipcode Phone Number [facility] [address] [place] [address] * POC glucose (12/23/2017 3:48 PM CDT) Only the most recent of 3 results within the time period is included. POC glucose 249 (H) 65 - 99 mg/dL [facility] DEPARTMENT OF Comment: PATHOLOGY AND Meter ID: [id number] GENOMIC MEDICINE Power System Dispatcher: Carmen Lou Performing Organization Address [facility]/Zipcode Phone Number [facility] [place] [address] [place] [address] PATHOLOGY AND GENOMIC MEDICINE * Comprehensive metabolic panel (12/08/2017 9:59 AM CDT) Only the most recent of 2 results within the time period is included. Glucose 119 (H) 65 - 99 mg/dL [facility] BUN, whole blood 17 6 - 24 mg/dL [facility] Creatinine 0.95 0.57 - 1.00 mg/dL [facility] EGFR Non-Afr. Gambian 75 >59 mL/min/1.73 [facility] EGFR 86 >59 [...] Blood Narrative Performed At Performed at:01 - [facility] [place], [id number] Well [employer] Pump Equipment Operator: Fabricio Ibanez MD, Phone:[phone] Performing Organization Address City/State/Zipcode Phone Number [facility] * ECG 12 lead (11/10/2017 5:49 PM CDT) Ventricular rate 80 [facility] Atrial rate 80 [facility] AZ interval 152 [facility] QRSD interval 92 [facility] QT interval 386 [facility] QTC interval 445 [facility] P axis 1 52 [facility] QRS axis 1 18 [facility] T wave axis 56 [facility] MUSE EKG impression Normal sinus [facility] MUSE rhythm-Nonspecific T wave abnormality-Abnormal ECG-In automated comparison with ECG of 26-AUG-2017 10:56,-Nonspecific T wave abnormality, worse in Inferior leads-Nonspecific T wave abnormality now evident in Anterolateral leads- Performing Organization Address City/[facility] Phone Number [facility] M[facility] [address] [place] [address] * Urinalysis screen and microscopy, with reflex to culture (11/10/2017 5:43 PM CDT) Specimen site Catheterized [facility] DEPARTMENT OF PATHOLOGY AND GENOMIC MEDICINE Color, UA Straw [facility] DEPARTMENT OF PATHOLOGY AND GENOMIC MEDICINE Appearance, UA Clear [facility] DEPARTMENT OF PATHOLOGY AND GENOMIC MEDICINE Specific gravity, UA 1.030 1.001 - 1.035 [facility] DEPARTMENT OF PATHOLOGY AND GENOMIC MEDICINE pH, UA 5.0 5.0 - 8.5 [facility] DEPARTMENT OF PATHOLOGY AND GENOMIC MEDICINE Protein, UA Negative Negative [facility] DEPARTMENT OF PATHOLOGY AND GENOMIC MEDICINE Glucose, UA 3+ (A) Negative [facility] DEPARTMENT OF PATHOLOGY AND GENOMIC MEDICINE Ketones, UA Trace (A) Negative [facility] DEPARTMENT OF PATHOLOGY AND GENOMIC MEDICINE Bilirubin, UA Negative Negative [facility] DEPARTMENT OF PATHOLOGY AND GENOMIC MEDICINE Blood, UA Small (A) Negative [facility] DEPARTMENT OF PATHOLOGY AND GENOMIC MEDICINE Nitrite, UA Negative Negative [facility] DEPARTMENT OF PATHOLOGY AND GENOMIC MEDICINE Urobilinogen, UA Negative <2.0 [facility] DEPARTMENT OF PATHOLOGY AND GENOMIC MEDICINE Leukocyte esterase, UA Negative Negative [facility] DEPARTMENT OF PATHOLOGY AND GENOMIC MEDICINE Epithelial cells, UA Few /HPF [facility] DEPARTMENT OF PATHOLOGY AND GENOMIC MEDICINE WBC, UA <1 0 - 5 /HPF [facility] DEPARTMENT OF PATHOLOGY AND GENOMIC MEDICINE RBC, UA 2 0 - 5 /HPF [facility] DEPARTMENT OF PATHOLOGY AND GENOMIC MEDICINE Bacteria, UA None seen None seen [facility] DEPARTMENT OF PATHOLOGY AND GENOMIC MEDICINE Yeast, UA None seen [facility] DEPARTMENT OF PATHOLOGY AND GENOMIC MEDICINE Yeast with pseudohyphae, None seen [facility] DEPARTMENT OF PATHOLOGY AND GENOMIC MEDICINE Specimen Urine Performing Organization Address City/[facility]/Zipcode Phone Number [facility] DEPARTMENT [place] [address] [place] [address] PATHOLOGY AND GENOMIC MEDICINE * Urine culture (11/10/2017 5:43 PM CDT) Urine culture SEE COMMENTComment: [facility] DEPARTMENT OF Bacteriuria screen negative. PATHOLOGY AND GENOMIC MEDICINE Specimen Urine Performing Organization Address City/State/Zipcode Phone Number [facility] DEPARTMENT OF [address] [place] [address] PATHOLOGY AND GENOMIC MEDICINE * CTA Neck [...] of the cervical vessels by NASCET criteria. [id number] Procedure Note Hm Interface, Radiology Results Incoming [...] of the cervical vessels by NASCET criteria. [id number] Performing Organization Address City/State/Zipcode Phone Number [facility] [address] [place] [address] * CTA Head W Wo Contrast (11/10/2017 5:27 PM CDT) Narrative Performed At EXAMINATION: CT ANGIOGRAM HEAD W WO CONTRAST [facility] CLINICAL HISTORY: numbness left [...] aneurysmal dilatation or vascular malformation of the [place]. The left vertebral artery is dominant. There is origin of the right posterior cerebral artery. IMPRESSION: No hemodynamically significant narrowing of the [place] vessels. [id number] Procedure Note Interface, Radiology Results Incoming - [...] aneurysmal dilatation or vascular malformation of the [place]. The left vertebral artery is dominant. There is origin of the right posterior cerebral artery. IMPRESSION: No hemodynamically significant narrowing of the [place] vessels. [facility]-[id number] Performing Organization Address City/State/Zipcode Phone Number [facility] [address] [place] [address] * ECG ED Preliminary Interpretation - NOT AN ORDER (11/10/2017 5:13 PM CDT) Narrative Performed At Karyn Bernal MD 11/10/20179:17 PM ECG ED Preliminary Interpretation - Not an Order Performed by: KARYN BERNAL Authorized by: KARYN BERNAL ECG reviewed by ED Physician in the absence of a dispatch clerk: yes Interpretation: Interpretation: normal Rate: ECG rate:80 [...] at 11/10/2017 5:06 PM who verbalized understanding. [id number] Procedure Note Hm Interface, Radiology Results Incoming [...] at 11/10/2017 5:06 PM who verbalized understanding. [id number] Performing Organization Address City/State/Zipcode Phone Number [facility] [address] [place] [address] * Estimated GFR (11/10/2017 5:03 PM CDT) GFR Non Af Amer 49 (A) mL/min/1.73 m2 [facility] DEPARTMENT OF PATHOLOGY AND GENOMIC MEDICINE GFR Af Amer 60 mL/min/1.73 m2 [facility] DEPARTMENT OF Comment: PATHOLOGY [...] Americans. Specimen Plasma specimen Performing Organization Address City/[facility] Phone Number [facility] [address] [place] [address] PATHOLOGY AND [employer] [facility] * Troponin (11/10/2017 5:03 PM CDT) Troponin <0.01 0.00 - 0.60 ng/mL [facility] DEPARTMENT OF Comment: PATHOLOGY AND 0.11 - 1.49 GENOMIC MEDICINE ng/mlMay indicate increased risk of acute coronary syndrome. >=1.5 ng/ml Consistent with acute myocardial infarction. The diagnostic value of a single normal or non-diagnostic result is questionable.Serial samples at 2-6 hour intervals are required to rule out acute myocardial injury. Specimen Plasma specimen Performing Organization Address [facility] Phone Number [address] * Partial thromboplastin time, activated (11/10/2017 4:55 PM CDT) PTT 27.2 23.0 - 36.0 sec [facility] DEPARTMENT OF Comment: PATHOLOGY AND PTT therapeutic range for [facility] MEDICINE unfractionated heparin is 61.0-112.0 seconds which corresponds to Anti-Xa 0.3-0.7 U/ml. Note:Change in Panic Value The PTT Panic Value is changing from 110 sec. to 100 sec. due to new instrumentation and reagents. Correlation studies have been performed to validate this result. Specimen Blood Narrative Performed At code a [facility] DEPARTMENT OF PATHOLOGY AND GENOMIC MEDICINE Performing Organization Address City/[facility] Phone Number [place] [phone] PATHOLOGY AND [employer] [facility] * Prothrombin time with INR (11/10/2017 4:55 PM CDT) Prothrombin time 12.2 12.0 - 15.0 sec [facility] DEPARTMENT OF PATHOLOGY AND [employer] MEDICINE INR 0.90 (L) 0.92 - 1.12 [facility] DEPARTMENT OF Comment: PATHOLOGY [...] over 4.0. Specimen Blood Narrative Performed At [facility] DEPARTMENT OF PATHOLOGY AND GENOMIC MEDICINE Performing Organization Address City/[facility]/Zipcode Phone Number [facility] [address] [place] [address] PATHOLOGY AND GENOMIC MEDICINE * CBC with platelet and differential (11/10/2017 4:55 PM CDT) WBC 11.0 4.2 - 11.0 k/uL [facility] DEPARTMENT OF PATHOLOGY AND GENOMIC MEDICINE RBC 4.50 4.04 - 5.86 m/uL [facility] DEPARTMENT OF PATHOLOGY AND GENOMIC MEDICINE HGB 13.4 11.5 - 15.3 g/dL [facility] DEPARTMENT OF PATHOLOGY AND GENOMIC MEDICINE HCT 40.2 34.0 - 45.0 % [facility] DEPARTMENT OF PATHOLOGY AND GENOMIC MEDICINE MCV 89.3 80.0 - 98.0 fL [facility] DEPARTMENT OF PATHOLOGY AND GENOMIC MEDICINE MCH 29.8 27.0 - 34.0 pg [facility] DEPARTMENT OF PATHOLOGY AND GENOMIC MEDICINE MCHC 33.3 31.5 - 36.5 g/dL [facility] DEPARTMENT OF PATHOLOGY AND GENOMIC MEDICINE RDW - SD 43.8 37.0 - 51.0 fL [facility] DEPARTMENT OF PATHOLOGY AND GENOMIC MEDICINE MPV 10.8 (H) 7.4 - 10.4 fL [facility] DEPARTMENT OF PATHOLOGY AND GENOMIC MEDICINE Platelet count 285 150 - 400 k/uL [facility] DEPARTMENT OF PATHOLOGY AND GENOMIC MEDICINE Nucleated RBC 0.00 /100 WBC [facility] DEPARTMENT OF PATHOLOGY AND GENOMIC MEDICINE Neutrophils 57.5 36.0 - 66.0 % [facility] DEPARTMENT OF PATHOLOGY AND GENOMIC MEDICINE Lymphocytes 35.2 24.0 - 44.0 % [facility] DEPARTMENT OF PATHOLOGY AND GENOMIC MEDICINE Monocytes 4.5 0.0 - 6.0 % [facility] DEPARTMENT OF PATHOLOGY AND GENOMIC MEDICINE Eosinophils 1.8 0.0 - 6.0 % [facility] DEPARTMENT OF PATHOLOGY AND GENOMIC MEDICINE Basophils 0.5 0.0 - 1.2 % [facility] DEPARTMENT OF PATHOLOGY AND GENOMIC MEDICINE Immature granulocytes 0.5 0.0 - 1.0 % [facility] DEPARTMENT OF PATHOLOGY AND GENOMIC MEDICINE Narrative Performed At [facility] DEPARTMENT OF PATHOLOGY AND GENOMIC MEDICINE Performing Organization Address City/State/Zipcode Phone Number [facility] [address] [place] [address] PATHOLOGY AND GENOMIC MEDICINE * POC glycosylated hemoglobin (Hb A1C) (10/26/2017 11:14 AM CDT) POC Hemoglobin A1C 10.4 % Specimen Blood after 10/07/2017 Insurance Payer Benefit Subscriber ID Type Phone Address Plan / Group [facility] MEDICARE [facility] DUAL xxxxxxxxx HMO COMPLETE [facility] ([place]) [place] [address] Advance Directives Patient has advance care planning documents on file. For more information, libby casas contact: John Garrido [address] [place] [address]
--- OUTSIDE RECORDS SUMMARY | 2018-10-08 20:39 | XMS REPORT ---
Author Author [facility] Address Unknown Phone Unavailable Care Team Providers Care Package Designer Name Role Phone ONOFRE CHRISTIE Unavailable Unavailable Problems This patient has no known problems. Allergies, Adverse Reactions, Alerts This patient has no known allergies or adverse reactions. Medications This patient has no known medications. Results Test Description Test Time Test Comments Text Results Atomic Results Result Comments Stress Test - Treadmill ONLY 2018-07-08 17:44:00 [place] [address] Patient Name : MAIA SOTO MR #: [id number] : 1975 Age/Sex: 43/F Adm Physician : ONOFRE CHRISTIE MD Admit Date : 07/06/18 Location : [facility] Room/Bed : [place] [address] REPORT: Cardiology Report DATE OF STUDY: July [...] with calculated ejection fraction of 62%. Job#: [id number] GH cc: ONOFRE CHRISTIE MD Signature Date Dictated By: LINDA MOON MD Transcribed By: SMEDS on 07/08/18 <Electronically signed by LINDA MOON MD><<Signature on File>>07/12/18 1102 COPY TO: CT CHEST WITH CONTRAST-HOPD 2018-07-06 22:18:00 [place] [address] Patient Name: MAIA SOTO MR #: [id number] : 1975 Age/Sex: 43/F Req #: [id number] Adm Physician: ONOFRE CHRISTIE MD Ordered by: JESSENIA NAPIER MD Report #: [id number] Location: [facility] Room/Bed: [place] [address] Procedure: [id number] HOPD/CT CHEST WITH CONTRAST-HOPD Exam Date: 07/06/18 [...]
[2018-10-08] MEDS ORDERED: IBUPROFEN 200 MG TAB PO STA (20:59)
[2018-10-08] MEDS ORDERED: ONDANSETRON HCL 4 MG ORAL DISINTEGRATING TAB PO ONE (21:00)
[2018-10-08] MEDS ORDERED: ACETAMINOPHEN 325 MG TAB PO ONE (21:00)
== END 2018-10-08 21:37 | disposition home or self-care (01) ==
LOC: FSED 20:36
DX: K13.79 Other lesions of oral mucosa (principal); I10 Essential (primary) hypertension; E11.9 Type 2 diabetes mellitus without complications; F17.210 Nicotine dependence, cigarettes, uncomplicated
CPT/HCPCS: 99282

== ENCOUNTER 2018-11-06 18:39 | Emergency (ER) | payer MEDICARE ==
[~2018-11-06] VITALS: Ht 160 cm; Wt 115.9 kg
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
--- OUTSIDE RECORDS SUMMARY | 2018-11-06 18:42 | XMS REPORT ---
Author Author [facility] Address Unknown Phone Unavailable Care Team Providers Care Director Of Operations Name Role Phone ONOFRE CHRISTIE Unavailable Unavailable Payers Payer Name Policy Type Policy Number Effective Date Expiration Date Problems This patient has no known problems. Allergies, Adverse Reactions, Alerts Allergy Name Allergy Type Status Severity Reaction(s) Onset Date Inactive Date Treating Clinician Comments gabapentin DA Active U 2018-10-25 00:00:00 Iodinated Contrast- Oral and IV Dye DA Active SV 2016-11-21 00:00:00 aspirin DA Active SV 2016-11-21 00:00:00 ciprofloxacin DA Active SV 2016-11-21 00:00:00 ketorolac DA Active SV 2016-11-21 00:00:00 Medications This patient has no known medications. Results Test Description Test Time Test Comments Text Results Atomic Results Result Comments COMPREHENSIVE METABOLIC PANEL 2018-10-25 18:22:00 SODIUM (test code=NA) 138 mmol/L 136-145 POTASSIUM (test code=K) 3.9 mmol/L 3.5-5.1 CHLORIDE (test code=CL) 104.0 mmol/L 98-107 CARBON DIOXIDE (test code=CO2) 28.0 mmol/L 21-32 ANION GAP (test code=GAP) 9.9 10-20 GLUCOSE (test code=GLU) 330 mg/dL 74-106 BLOOD UREA NITROGEN (test code=BUN) 9 mg/dL 7-18 GLOMERULAR FILTRATION RATE (test code=GFR) > 60 mL/min >=60 Estimated GFR by using Modified MDRD formula.Chronic kidney disease is defined as either kidney damageor GFR <60 mL/min/1.73 m2 for >3 months. CREATININE (test code=CREAT) 0.90 mg/dL 0.55-1.02 Note change in reference range due to change in reagent. BUN/CREATININE RATIO (test code=BUN/CREA) 10.0 10-20 TOTAL PROTEIN (test code=PROT) 7.2 gram/dL 6.4-8.2 ALBUMIN (test code=ALB) 3.7 g/dL 3.4-5.0 GLOBULIN (test code=GLOB) 3.5 gram/dL 2.7-4.2 ALBUMIN/GLOBULIN RATIO (test code=A/G) 1.1 0.75-1.50 CALCIUM (test code=CA) 8.4 mg/dL 8.5-10.1 BILIRUBIN TOTAL (test code=BILT) 0.40 mg/dL 0.0-1.0 SGOT/AST (test code=AST) 17 IUnit/L 15-37 SGPT/ALT (test code=ALT) 23 IUnit/L 12-78 ALKALINE PHOSPHATASE TOTAL (test code=ALKP) 167 IUnit/L 45-117 Note change in reference range due to change in reagent. COMPREHENSIVE METABOLIC [id number] 18:15:00* Test Item Value Reference Range Comments SODIUM (test code=NA) 138 mmol/L 136-145 POTASSIUM (test code=K) 3.9 mmol/L 3.5-5.1 CHLORIDE (test code=CL) 104.0 mmol/L 98-107 CARBON DIOXIDE (test code=CO2) mmol/L 21-32 ANION GAP (test code=GAP) 10-20 GLUCOSE (test code=GLU) mg/dL 74-106 BLOOD UREA NITROGEN (test code=BUN) mg/dL 7-18 GLOMERULAR FILTRATION RATE (test code=GFR) mL/min >=60 CREATININE (test code=CREAT) mg/dL 0.55-1.02 BUN/CREATININE RATIO (test code=BUN/CREA) 10-20 TOTAL PROTEIN (test code=PROT) gram/dL 6.4-8.2 ALBUMIN (test code=ALB) g/dL 3.4-5.0 GLOBULIN (test code=GLOB) gram/dL 2.7-4.2 ALBUMIN/GLOBULIN RATIO (test code=A/G) 0.75-1.50 CALCIUM (test code=CA) mg/dL 8.5-10.1 BILIRUBIN TOTAL (test code=BILT) mg/dL 0.0-1.0 SGOT/AST (test code=AST) IUnit/L 15-37 SGPT/ALT (test code=ALT) IUnit/L 12-78 ALKALINE PHOSPHATASE TOTAL (test code=ALKP) IUnit/L 45-117 CBC W/AUTO [id number] 18:08:00* Test Item Value Reference Range Comments WHITE BLOOD CELL (test code=WBC) 9.0 K/mm3 4.5-12.5 RED BLOOD CELL (test code=RBC) 4.28 mill/mm3 3.7-5.2 HEMOGLOBIN (test code=HGB) 11.7 gram/dL 11.5-15.5 HEMATOCRIT (test code=HCT) 38.2 % 36.0-46.0 MEAN CELL VOLUME (test code=MCV) 89.3 fL 80-98 MEAN CELL HGB (test code=MCH) 27.3 picogram 27.0-33.0 MEAN CELL HGB CONCETRATION (test code=MCHC) 30.6 gram/dL 33.0-36.0 RED CELL DISTRIBUTION WIDTH (test code=RDW) 13.8 % 11.6-16.2 RED CELL DISTRIBUTION WIDTH SD (test code=RDW-SD) 44.3 fL 37.0-51.0 PLATELET COUNT (test code=PLT) 273 K/mm3 150-450 MEAN PLATELET VOLUME (test code=MPV) 10.3 fL 6.7-11.0 NEUTROPHIL % (test code=NT%) 53.6 % 39.0-69.0 IMMATURE GRANULOCYTE % (test code=IG%) 0.4 % 0.0-5.0 LYMPHOCYTE % (test code=LY%) 39.2 % 25.0-55.0 MONOCYTE % (test code=MO%) 4.5 % 0.0-10.0 EOSINOPHIL % (test code=EO%) 1.6 % 0.0-5.0 BASOPHIL % (test code=BA%) 0.7 % 0.0-1.0 NUCLEATED RBC % (test code=NRBC%) 0.0 % 0-0 NEUTROPHIL # (test code=NT#) 4.80 K/mm3 1.8-7.7 IMMATURE GRANULOCYTE # (test code=IG#) 0.04 x10 3/uL 0-0.03 LYMPHOCYTE # (test code=LY#) 3.51 K/mm3 1.0-5.0 MONOCYTE # (test code=MO#) 0.40 K/mm3 0-0.8 EOSINOPHIL # (test code=EO#) 0.14 K/mm3 0.0-0.5 BASOPHIL # (test code=BA#) 0.06 K/mm3 0.0-0.2 NUCLEATED RBC # (test code=NRBC#) 0.00 K/mm3 0.0-0.1 MANUAL DIFF REQUIRED (test code=MDIFF) NO CBC W/AUTO [id number] 18:04:00* Test Item Value Reference Range Comments WHITE BLOOD CELL (test code=WBC) K/mm3 4.5-12.5 RED BLOOD CELL (test code=RBC) mill/mm3 3.7-5.2 HEMOGLOBIN (test code=HGB) 11.7 gram/dL 11.5-15.5 HEMATOCRIT (test code=HCT) 38.2 % 36.0-46.0 MEAN CELL VOLUME (test code=MCV) fL 80-98 MEAN CELL HGB (test code=MCH) picogram 27.0-33.0 MEAN CELL HGB CONCETRATION (test code=MCHC) gram/dL 33.0-36.0 RED CELL DISTRIBUTION WIDTH (test code=RDW) % 11.6-16.2 RED CELL DISTRIBUTION WIDTH SD (test code=RDW-SD) fL 37.0-51.0 PLATELET COUNT (test code=PLT) K/mm3 150-450 MEAN PLATELET VOLUME (test code=MPV) fL 6.7-11.0 NEUTROPHIL % (test code=NT%) % 39.0-69.0 IMMATURE GRANULOCYTE % (test code=IG%) % 0.0-5.0 LYMPHOCYTE % (test code=LY%) % 25.0-55.0 MONOCYTE % (test code=MO%) % 0.0-10.0 EOSINOPHIL % (test code=EO%) % 0.0-5.0 BASOPHIL % (test code=BA%) % 0.0-1.0 NEUTROPHIL # (test code=NT#) K/mm3 1.8-7.7 LYMPHOCYTE # (test code=LY#) K/mm3 1.0-5.0 MONOCYTE # (test code=MO#) K/mm3 0-0.8 EOSINOPHIL # (test code=EO#) K/mm3 0.0-0.5 BASOPHIL # (test code=BA#) K/mm3 0.0-0.2 [id number] 17:03:00* Test Item Value Reference Range Comments GLUBED (test code=GLUBED) 327 mg/dL 74-106 Performed by certified tunnel kiln operator at [facility] BASIC METABOLIC [id number] 14:11:00* Test Item Value Reference Range Comments SODIUM (test code=NA) 135 mmol/L 136-145 POTASSIUM (test code=K) 4.1 mmol/L 3.5-5.1 CHLORIDE (test code=CL) 100.0 mmol/L 98-107 CARBON DIOXIDE (test code=CO2) 27.0 mmol/L 21-32 ANION GAP (test code=GAP) 12.1 10-20 GLUCOSE (test code=GLU) 513 mg/dL 74-106 Results called to [id number] by ALEYDA 10/25/18 1408Critical results verified and read back by Nurse? Y BLOOD UREA NITROGEN (test code=BUN) 9 mg/dL 7-18 GLOMERULAR FILTRATION RATE (test code=GFR) 49 mL/min >=60 Estimated GFR by using Modified MDRD formula.Chronic kidney disease is defined as either kidney damageor GFR <60 mL/min/1.73 m2 for >3 months. CREATININE (test code=CREAT) 1.20 mg/dL 0.55-1.02 Note change in reference range due to change in reagent. BUN/CREATININE RATIO (test code=BUN/CREA) 7.5 10-20 CALCIUM (test code=CA) 8.4 mg/dL 8.5-10.1 HEPATIC FUNCTION [id number] 14:11:00* Test Item Value Reference Range Comments TOTAL PROTEIN (test code=PROT) 7.4 gram/dL 6.4-8.2 ALBUMIN (test code=ALB) 3.7 g/dL 3.4-5.0 GLOBULIN (test code=GLOB) 3.7 gram/dL 2.7-4.2 ALBUMIN/GLOBULIN RATIO (test code=A/G) 1.0 0.75-1.50 BILIRUBIN TOTAL (test code=BILT) 0.40 mg/dL 0.0-1.0 BILIRUBIN DIRECT (test code=BILD) 0.10 mg/dL 0.0-0.20 SGOT/AST (test code=AST) 18 IUnit/L 15-37 SGPT/ALT (test code=ALT) 23 IUnit/L 12-78 ALKALINE PHOSPHATASE TOTAL (test code=ALKP) 188 IUnit/L 45-117 Note change in reference range due to change in reagent. CREATINE KINASE (CK)2018-10-25 14:11:00* Test Item Value Reference Range Comments CREATINE KINASE (CK) (test code=CK) 89 IUnit/L 26-208 [id number] 14:11:00* Test Item Value Reference Range Comments LIPASE (test code=LIP) 169 U/L 73.0-393.0 [id number] 14:11:00* Test Item Value Reference Range Comments MAGNESIUM (test code=MAG) 1.5 mg/dL 1.8-2.4 HCG SERUM [id number] 14:11:00* Test Item Value Reference Range Comments HCG SERUM QUAL (test code=HCGQL) NEGATIVE NEGATIVE This HCGQL test is NOT applicable for MALE patients.Check with nurse about probable order error.If Tumor Marker Test needed, nurse should order test "HCGTU"(Test #550.75251) [id number] 14:11:00* Test Item Value Reference Range Comments TROPONIN-I (test code=TROPI) <0.015 ng/mL 0-0.045 [id number] 14:11:00* Test Item Value Reference Range Comments ALCOHOL (test code=ALC) < 3 mg/dL 0.0-3.0 INTERPRETIVE DATA NOTE: POSITIVE SCREENING RESULTS SHOULD BE CONSIDERED PRESUMPTIVE.WHEN COLLECTED FOR MEDICAL PURPOSES ONLY. SPECIMEN WILL NOTBE COLLECTED BY CHAIN OF CUSTODY.IF A CONFIRMATION OF POSITIVE RESULTS IS DESIRED, ACONFIRMATION TEST MUST BE REQUESTED BY THE PHYSICIAN AT ANADDITIONAL CHARGE TO THE PATIENT. BASIC METABOLIC [id number] 13:47:00* Test Item Value Reference Range Comments SODIUM (test code=NA) mmol/L 136-145 POTASSIUM (test code=K) mmol/L 3.5-5.1 CHLORIDE (test code=CL) mmol/L 98-107 CARBON DIOXIDE (test code=CO2) mmol/L 21-32 ANION GAP (test code=GAP) 10-20 GLUCOSE (test code=GLU) mg/dL 74-106 BLOOD UREA NITROGEN (test code=BUN) mg/dL 7-18 GLOMERULAR FILTRATION RATE (test code=GFR) mL/min >=60 CREATININE (test code=CREAT) mg/dL 0.55-1.02 BUN/CREATININE RATIO (test code=BUN/CREA) 10-20 CALCIUM (test code=CA) mg/dL 8.5-10.1 HEPATIC FUNCTION [id number] 13:47:00* Test Item Value Reference Range Comments TOTAL PROTEIN (test code=PROT) gram/dL 6.4-8.2 ALBUMIN (test code=ALB) g/dL 3.4-5.0 GLOBULIN (test code=GLOB) gram/dL 2.7-4.2 ALBUMIN/GLOBULIN RATIO (test code=A/G) 0.75-1.50 BILIRUBIN TOTAL (test code=BILT) mg/dL 0.0-1.0 BILIRUBIN DIRECT (test code=BILD) mg/dL 0.0-0.20 SGOT/AST (test code=AST) IUnit/L 15-37 SGPT/ALT (test code=ALT) IUnit/L 12-78 ALKALINE PHOSPHATASE TOTAL (test code=ALKP) IUnit/L 45-117 CREATINE KINASE (CK)2018-10-25 13:47:00* Test Item Value Reference Range Comments CREATINE KINASE (CK) (test code=CK) IUnit/L 26-208 [id number] 13:47:00* Test Item Value Reference Range Comments LIPASE (test code=LIP) U/L 73.0-393.0 [id number] 13:47:00* Test Item Value Reference Range Comments MAGNESIUM (test code=MAG) mg/dL 1.8-2.4 HCG SERUM [id number] 13:47:00* Test Item Value Reference Range Comments HCG SERUM QUAL (test code=HCGQL) NEGATIVE NEGATIVE This HCGQL test is NOT applicable for MALE patients.Check with nurse about probable order error.If Tumor Marker Test needed, nurse should order test "HCGTU"(Test #550.35164) [id number] 13:47:00* Test Item Value Reference Range Comments TROPONIN-I (test code=TROPI) ng/mL 0-0.045 [id number] 13:47:00* Test Item Value Reference Range Comments ALCOHOL (test code=ALC) mg/dL 0-3 URINALYSIS [id number] 13:20:00* Test Item Value Reference Range Comments UA COLOR (test code=COLU) LIGHT YELLOW YELLOW UA APPEARANCE (test code=APPU) Cloudy CLEAR UA GLUCOSE DIPSTICK (test code=DGLUU) >=500 mg/dL NEGATIVE UA BILIRUBIN DIPSTICK (test code=BILU) NEGATIVE mg/dL NEGATIVE UA KETONE DIPSTICK (test code=KETU) NEGATIVE mg/dL NEGATIVE UA SPECIFIC GRAVITY (test code=SGU) 1.030 1.001-1.035 UA BLOOD DIPSTICK (test code=ANALISA) 3+ (Large) mg/dL NEGATIVE UA PH DIPSTICK (test code=DELISA) 5.0 5.0-8.0 UA PROTEIN DIPSTICK (test code=PROU) NEGATIVE mg/dL NEGATIVE UA UROBILINIOGEN DIPSTICK (test code=URO) NEGATIVE mg/dL NEGATIVE UA NITRITE DIPSTICK (test code=JACQUELIN) NEGATIVE NEGATIVE UA LEUKOCYTE ESTERASE W REFLEX (test code=LEUUR) NEGATIVE Marielle/uL NEGATIVE UA WBC (test code=WBCU) 3-5 per HPF 0-5 IN SOME URINARY TRACT INFECTIONS THERE MAY NOT BE ENOUGHWBCs IN THE URINE TO TRIGGER AN AUTOMATIC (REFLEX) URINECULTURE. A SEPERATE ORDER FOR URINE CULTURE IS RECOMMENDEDIF THERE IS STRONG SUPPORT FOR A URINARY TRACT INFECTIONCLINICALLY. UA RBC (test code=RBCU) 3-5 per HPF 0-5 UA EPITHELIAL CELLS (test code=EPIU) Many (>10/hpf) per HPF Few UA BACTERIA (test code=BACU) MODERATE per HPF NONE UA MUCUS (test code=MUCU) FEW per LPF NONE-FEW UA AMORPHOUS SEDIMENT (test code=AMORU) FEW per LPF NONE Urine Source? Clean CatchDRUGS OF ABUSE SCREEN [id number] 13:20:00* Test Item Value Reference Range Comments URN COCAINE (test code=COCAURN) NEGATIVE <300 ng/mL URN CANNABINOIDS (test code=CANNABURN) NEGATIVE <50 ng/mL URN AMPHETAMINE (test code=AMPHETURN) NEGATIVE <1000 ng/mL URN BARBITURATE (test code=BARBITURN) NEGATIVE <200 ng/mL URN BENZODIAZEPINE (test code=BENZOURN) NEGATIVE <200 ng/mL URN OPIATES (test code=OPIATURN) NEGATIVE <300 ng/mL URN PHENCYCLIDINE (PCP) (test code=PHENCURN) NEGATIVE <25 ng/mL URN METHADONE (test code=METHAURN) NEGATIVE <300 ng/mL Urine Source? Clean CatchURINALYSIS [id number] 13:18:00* Test Item Value Reference Range Comments UA COLOR (test code=COLU) LIGHT YELLOW YELLOW UA APPEARANCE (test code=APPU) Cloudy CLEAR UA GLUCOSE DIPSTICK (test code=DGLUU) >=500 mg/dL NEGATIVE UA BILIRUBIN DIPSTICK (test code=BILU) NEGATIVE mg/dL NEGATIVE UA KETONE DIPSTICK (test code=KETU) NEGATIVE mg/dL NEGATIVE UA SPECIFIC GRAVITY (test code=SGU) 1.030 1.001-1.035 UA BLOOD DIPSTICK (test code=ANALISA) 3+ (Large) mg/dL NEGATIVE UA PH DIPSTICK (test code=DELISA) 5.0 5.0-8.0 UA PROTEIN DIPSTICK (test code=PROU) NEGATIVE mg/dL NEGATIVE UA UROBILINIOGEN DIPSTICK (test code=URO) NEGATIVE mg/dL NEGATIVE UA NITRITE DIPSTICK (test code=JACQUELIN) NEGATIVE NEGATIVE UA LEUKOCYTE ESTERASE W REFLEX (test code=LEUUR) NEGATIVE Marielle/uL NEGATIVE UA WBC (test code=WBCU) 3-5 per HPF 0-5 IN SOME URINARY TRACT INFECTIONS THERE MAY NOT BE ENOUGHWBCs IN THE URINE TO TRIGGER AN AUTOMATIC (REFLEX) URINECULTURE. A SEPERATE ORDER FOR URINE CULTURE IS RECOMMENDEDIF THERE IS STRONG SUPPORT FOR A URINARY TRACT INFECTIONCLINICALLY. UA RBC (test code=RBCU) 3-5 per HPF 0-5 UA EPITHELIAL CELLS (test code=EPIU) Many (>10/hpf) per HPF Few UA BACTERIA (test code=BACU) MODERATE per HPF NONE UA MUCUS (test code=MUCU) FEW per LPF NONE-FEW UA AMORPHOUS SEDIMENT (test code=AMORU) FEW per LPF NONE Urine Source? Clean CatchDRUGS OF ABUSE SCREEN [id number] 13:18:00* Test Item Value Reference Range Comments URN COCAINE (test code=COCAURN) <300 ng/mL URN CANNABINOIDS (test code=CANNABURN) <50 ng/mL URN AMPHETAMINE (test code=AMPHETURN) <1000 ng/mL URN BARBITURATE (test code=BARBITURN) <200 ng/mL URN BENZODIAZEPINE (test code=BENZOURN) <200 ng/mL URN OPIATES (test code=OPIATURN) <300 ng/mL URN PHENCYCLIDINE (PCP) (test code=PHENCURN) <25 ng/mL URN METHADONE (test code=METHAURN) <300 ng/mL Urine Source? Clean CatchURINALYSIS [id number] 13:06:00* Test Item Value Reference Range Comments UA COLOR (test code=COLU) LIGHT YELLOW YELLOW UA APPEARANCE (test code=APPU) Cloudy CLEAR UA GLUCOSE DIPSTICK (test code=DGLUU) >=500 mg/dL NEGATIVE UA BILIRUBIN DIPSTICK (test code=BILU) NEGATIVE mg/dL NEGATIVE UA KETONE DIPSTICK (test code=KETU) NEGATIVE mg/dL NEGATIVE UA SPECIFIC GRAVITY (test code=SGU) 1.030 1.001-1.035 UA BLOOD DIPSTICK (test code=ANALISA) 3+ (Large) mg/dL NEGATIVE UA PH DIPSTICK (test code=DELISA) 5.0 5.0-8.0 UA PROTEIN DIPSTICK (test code=PROU) NEGATIVE mg/dL NEGATIVE UA UROBILINIOGEN DIPSTICK (test code=URO) NEGATIVE mg/dL NEGATIVE UA NITRITE DIPSTICK (test code=JACQUELIN) NEGATIVE NEGATIVE UA LEUKOCYTE ESTERASE W REFLEX (test code=LEUUR) NEGATIVE Marielle/uL NEGATIVE UA WBC (test code=WBCU) per HPF 0-5 Urine Source? Clean CatchDRUGS OF ABUSE SCREEN [id number] 13:06:00* Test Item Value Reference Range Comments URN COCAINE (test code=COCAURN) <300 ng/mL URN CANNABINOIDS (test code=CANNABURN) <50 ng/mL URN AMPHETAMINE (test code=AMPHETURN) <1000 ng/mL URN BARBITURATE (test code=BARBITURN) <200 ng/mL URN BENZODIAZEPINE (test code=BENZOURN) <200 ng/mL URN OPIATES (test code=OPIATURN) <300 ng/mL URN PHENCYCLIDINE (PCP) (test code=PHENCURN) <25 ng/mL URN METHADONE (test code=METHAURN) <300 ng/mL Urine Source? Clean Catch- XR CHEST 1 [id number] 12:53:00 FAX: Sofi Harmon [phone] [place]: St: REG Name: MAIA BLANCO [facility] : [birth year] Age/S: 43/F [address] [facility] Unit #: [id number] Loc: [place] [address] Phys: Sofi Portillo MD Acct: [id number] Dis Date: Status: REG ER PHONE #: [phone] Exam Date: 10/25/2018 1246 FAX #: [phone] Reason: WEAKNESS EXAMS: CPT CODE: [id number] XR CHEST 1 V 50861 HISTORY: Weakness. C OMPARISON: November 21, 2016. No acute infiltrates, effusion or conge stion is noted. The cardiac and mediastinal silhouette are within normal limits. IMPRESSION: No acute infiltra dorinda, effusion or congestion. at 1253 Reported and signed by: Rashad Carranza M.D. CC: Sofi Portillo MD Technologist: Bre Matthews(R) Trnscrd Date/Time/By: 10/25/2018 (6698) : By: [email or web address] Orig Print D/T: S: 10/25/2018 (5404) PAGE 1 Signed Report CBC W/O [id number] 12:51:00 * Test Item Value Reference Range Comments WHITE BLOOD CELL (test code=WBC) 7.7 K/mm3 4.5-12.5 RED BLOOD CELL (test code=RBC) 4.30 mill/mm3 3.7-5.2 HEMOGLOBIN (test code=HGB) 11.6 gram/dL 11.5-15.5 HEMATOCRIT (test code=HCT) 38.4 % 36.0-46.0 MEAN CELL VOLUME (test code=MCV) 89.3 fL 80-98 MEAN CELL HGB (test code=MCH) 27.0 picogram 27.0-33.0 MEAN CELL HGB CONCETRATION (test code=MCHC) 30.2 gram/dL 33.0-36.0 RED CELL DISTRIBUTION WIDTH (test code=RDW) 13.6 % 11.6-16.2 PLATELET COUNT (test code=PLT) 274 K/mm3 150-450 MEAN PLATELET VOLUME (test code=MPV) 10.4 fL 6.7-11.0 CBC W/O [id number] 12:45:00* Test Item Value Reference Range Comments WHITE BLOOD CELL (test code=WBC) K/mm3 4.5-12.5 RED BLOOD CELL (test code=RBC) mill/mm3 3.7-5.2 HEMOGLOBIN (test code=HGB) 11.6 gram/dL 11.5-15.5 HEMATOCRIT (test code=HCT) 38.4 % 36.0-46.0 MEAN CELL VOLUME (test code=MCV) fL 80-98 MEAN CELL HGB (test code=MCH) picogram 27.0-33.0 MEAN CELL HGB CONCETRATION (test code=MCHC) gram/dL 33.0-36.0 RED CELL DISTRIBUTION WIDTH (test code=RDW) % 11.6-16.2 PLATELET COUNT (test code=PLT) K/mm3 150-450 MEAN PLATELET VOLUME (test code=MPV) fL 6.7-11.0 - CT HEAD/BRAIN W/O [id number] 12:37:00 Name: MAIA SOTO [facility] : 1975 Age/S: 43 / F [address] [facility] Unit #: [id number] Loc: [place] [address] Phys: Sofi Portillo MD Acct: [id number] Dis Date: Status: REG ER PHONE #: [phone] Exam Date: 10/25/2018 1225 FAX #: [phone] Reason: confusion EXAMS: CPT CODE: [id number] CT HEAD/BRAIN W/O CONT 30851 HISTORY: Confusion. COMPARISON: None available. CT brain without contrast: Automated exposure control. No acute intracranial bleeds or extra-axial collections and there is no acute territorial vascular infarction. The otto-white matter differentiation is preserved. The sulci, gyri, ventricles and subarachnoid spaces and the basilar cisterns are normal for patient's age. No herniation or hydrocephalus or midline shift is noted. Fourth ventricle remains midline. Portions of the visualized paranasal sinuses demonstrated mucosal thickening of the floor of the left maxillary sinus. No obvious bony calvarial defect is noted. IMPRESSION: No acute intracranial bleeds or extra-axial collections. No acute territorial vascular infarction. No herniation or hydrocephalus or midline shift. at 1237 Reported and signed by: Rashad Carranza M.D. CC: Sofi Salmeron MD Technologist:Malena hawthorneer RT(R),CT CTDI: DLP: Trnscb Date/Time: 10/25/2018 (1237) t. [email or web address] Orig Print D/T: S: 10/25/2018 (1240) CTDI: DLP: PAGE 1 Signed Report Stress Test - Treadmill [id number] 17:44:00 [place] [address] Patient Name : MAIA SOTO MR #: [id number] : 1975 Age/Sex: 43/F Adm Physician : ONOFRE CHRISTIE MD Admit Date : 07/06/18 Location : [facility] Room/Bed : [place] [address] REPORT: Cardi ology Report DATE OF STUDY: July 08, 2018 LEXISCAN MYOVIEW This is a 2-day Lexiscan Myoview. On July 08, due to the inability to exercise, the patient was given Lexiscan 0.4 mg intravenously and shortly a fterwards 33 mCi of technetium-99m Myoview. [facility]. Comparison of resting and Lexiscan stress images shows small fixed anteroseptal defects suggesting soft tissue attenuation. T here is no distinct fixed or reversible defects to suggest any scarring or is chemia. Additionally, gated wall motion images were obtained and calculated ejection fraction normal at 62% without regional wall motion abnormality. FINAL IMPRESSION 1. Probably normal Lexiscan Myoview for perfusion. 2. S mall area of anteroseptal soft tissue attenuation. 3. No distinct evidence of any scar or ischemia. 4. Normal left ventricular function with calculated e jection fraction of 62%. Job#: [id number] cc: ONOFRE CHRISTIE MD Signature Date Dictated By: LINDA MOON MD Transcribed By: SMEDS on 07/08/18 < Electronically signed by LINDA MOON MD><<Signature on File>>07/12/18 1102 COPY TO: CT CHEST WITH [id number] 22:18:00 [place] [id number] [place] [address] Patient Name: MAIA SOTO MR #: [id number] : 1975 Age/Sex: 43/F Req #: [id number] Adm Physician: ONOFRE CHRISTIE MD Ordered by: JESSENIA NAPIER MD Report #: [id number] Location: [facility] Room/Bed: [place] [address] Procedure: 12 HOPD/CT CHEST WITH CONTRAST-HOPD Exam Date: 07/06/18 Exam Time: 2149 REPORT STATUS: Signed EXAM: CT Chest WITH contrast (PE Protocol) INDICATION: Chest pain [id number] COMPARISON: None TECHNIQUE: Chest was scanned uti lizing a multidetector helical scanner from the lung apex through the level of the diaphragm after administration of IV contrast. Thin section reconstructio ns were obtained with special concentration on the pulmonary arteries. Coronal and sagittal reformations were obtained. Pulmonary embolism protocol was perf ormed. IV CONTRAST: 100 mL of Isovue-370 COMPLICATIONS: None RA DIATION DOSE: Total DLP: 583.2 mGy*cm Estimated effective dose: ( DLP x 0.014 x size factor) mSv CTDIvol has been reviewed. It is below the limits set by the Radiation Protocol Committee (RPC). Dose modulation, iterat miryam reconstruction, and/or weight based adjustment of the mA/kV was utilized t o reduce the radiation dose to as low as reasonably achievable. FINDINGS: LINES/ TUBES: None. LUNGS AND AIRWAYS: No filling defect is identified within the pulmonary arteries to the segmental level. The lungs are unremar kable. Airways are normal. PLEURA: The pleural spaces are clear. HE ART AND MEDIASTINUM: The thyroid gland is normal. No mediastinal, hilar or ax illary lymphadenopathy. The heart is normal in size.. There is no pericardial effusion. . Main pulmonary artery measures 2.8 cm in diameter and the as cending aorta measures 3.6 cm. UPPER ABDOMEN: Left hepatic 2.4 cm cyst. Cho lecystectomy. Otherwise, unremarkable. BONES: There are mild degenerative changes in the thoracic spine. SOFT TISSUES: Unremarkable. IMPRESSION: No pulmonary emboli or acute thoracic abnormalities. Signed by: DR. Celia Bojorquez MD on 07/06/2018 10:25 PM Dictated By: ALFONZO BOJORQUEZ MD Yolanda ctronically Signed By: ALFONZO BOJORQUEZ MD on 07/06/182224 Transcribed By: ITZ Coates on 07/06/182224 COPY TO: JESSENIA NAPIER MD
[2018-11-06] MEDS ORDERED: SODIUM CHLORIDE 0.9% 1000ML 1,000 ML IV STA (19:04)
[2018-11-06] MEDS ORDERED: CRESTOR40 MG (19:05)
[2018-11-06] MEDS ORDERED: VENLAFAXINE HCL75 MG PO (19:05)
[2018-11-06] MEDS ORDERED: RISPERDAL3 MG (19:05)
[2018-11-06] MEDS ORDERED: AMBIEN5 MG PO (19:05)
[2018-11-06] MEDS ORDERED: DIPHENHYDRAMINE HCL INJ 50 MG/ML VIAL IV ONE ×2 (19:15→21:15)
[2018-11-06] MEDS ORDERED: HYDROCODONE/APAP 5MG-325MG TAB PO ONE (19:15)
[2018-11-06] MEDS ORDERED: FAMOTIDINE 20 MG/2 ML VIAL IV ONE (19:15)
[2018-11-06] MEDS ORDERED: PROMETHAZINE 25MG/ NS 50ML (IV) IV ONE ×2 (19:15→21:15)
[2018-11-06] MEDS ORDERED: KETOROLAC TROMETHAMINE 30 MG/ML VIAL IV ONE (19:15)
--- NOTE | 2018-11-06 19:56 | Diagnostic Imaging Report ---
History: Migraine and photophobia. Comparison studies: None Technique: Axial images were obtained from the skull base to the vertex. Coronal and sagittal reconstructions obtained from the axial data. Dose modulation, iterative reconstruction, and/or weight based adjustment of the mA/kV was utilized to reduce the radiation dose to as low as reasonably achievable. Findings: Scalp/skull: No abnormalities. No fractures, blastic or lytic lesions. Extra-axial spaces: No masses. No fluid collections. Brain sulci: Appropriate for age. Ventricles: Normal in size and configuration. No hydrocephalus. Parenchyma: No abnormal densities. No masses, hemorrhage, acute or chronic cortical vascular insults. Sellar/suprasellar region: No abnormalities Craniocervical junction: Patent foramen magnum. No Chiari one malformation. IMPRESSION: No abnormalities . Signed by: DR Tre Engel M.D. on 11/06/2018 7:52 PM
[2018-11-06 22:21] VITALS: BP 179/91
== END 2018-11-06 22:11 | disposition home or self-care (01) ==
LOC: FSED 18:39
DX: G43.001 Migraine without aura, not intractable, with status migrainosus (principal); I10 Essential (primary) hypertension; E11.9 Type 2 diabetes mellitus without complications
CPT/HCPCS: 70450; 80053; 81003; 85025; 96374; 96375; 96376; 99284; J1200; J2550; J7030

== ENCOUNTER 2018-11-10 19:12 | Emergency (ER) | payer MEDICARE ==
[~2018-11-10] VITALS: Ht 160 cm; Wt 115.7 kg
[~2018-11-10 19:12] MED LIST changes: +AMBIEN5 MG PO; +CRESTOR40 MG; +RISPERDAL3 MG; +VENLAFAXINE HCL75 MG PO
--- OUTSIDE RECORDS SUMMARY | 2018-11-10 19:15 | XMS REPORT | Clinical Summary ---
Author Author [facility] [employer] Organization [facility] Address Unknown Phone Unavailable Care Team Providers Care Plumber Supervisor Name Role Phone Katie Martins MD PCP Allergies Comments Active Allergy Reactions Severity Noted Date Pt can take ibuprofen; Unknown aspirin reaction; Transcribed during [employer] Cutover, please verify: Aspirin Hives Low 12/06/2016 [...] with long-term current use of insulin ([facility]) Active pen needle, diabetic (PEN Dx E11.40 [...] Norris MA 11/09/2017 Telephone Internal Medicine after 11/09/2017 Immunizations Name Dates Previously Given Next Due [...] GLUCOSE Routine 11/10/2017 4:43 PM CDT after 11/09/2017 Results * XR Elbow 3+ Vw Right (12/23/2017 4:59 PM CDT) Narrative Performed At EXAMINATION:XR ELBOW 3VW RIGHT [facility] CLINICAL HISTORY:right elbow pain COMPARISON:None. IMPRESSION: There is no evidence of acute right elbow fracture, dislocation, or joint effusion. [facility]-[id number] Procedure Note Hm Interface, Radiology Results Incoming - 12/23/2017 5:04 PM CDT EXAMINATION: XR ELBOW 3 VW RIGHT CLINICAL HISTORY: right elbow pain COMPARISON: None. IMPRESSION: There is no evidence of acute right elbow fracture, dislocation, or joint effusion. [facility]-[id number] Performing Organization Address City/State/Zipcode Phone Number [facility] [address] [place] [address] * Pv duplex venous upper extremity (12/23/2017 4:54 PM CDT) Narrative Performed At [facility] The right upper extremity was negative for deep vein thrombosis or superficial vein thrombosis. Performing Organization Address City/[facility]/Zipcode Phone Number [facility] [address] [place] [address] * POC glucose (12/23/2017 3:48 PM CDT) Only the most recent of 3 results within the time period is included. POC glucose 249 (H) 65 - 99 mg/dL [facility] DEPARTMENT OF Comment: PATHOLOGY AND Meter ID: [id number] GENOMIC MEDICINE Applied Biology Professor: Carmen Lou Performing Organization Address City/[facility]/Zipcode Phone Number [facility] DEPARTMENT [address] [address] PATHOLOGY AND GENOMIC MEDICINE * Comprehensive metabolic panel (12/08/2017 9:59 AM CDT) Only the most recent of 2 results within the time period is included. Glucose 119 (H) 65 - 99 mg/dL [facility] BUN, whole blood 17 6 - 24 mg/dL [facility] Creatinine 0.95 0.57 - 1.00 mg/dL [facility] EGFR Non-Afr. Nepalese 75 >59 mL/min/1.73 [facility] EGFR 86 >59 [...] Blood Narrative Performed At Performed at: - [facility] [address] [place], [id number] Posting Machine Operator: Fabricio Ibanez MD, Phone:[phone] Performing Organization Address [facility] Phone Number [facility] * ECG 12 lead (11/10/2017 5:49 PM CDT) Ventricular rate 80 [facility] MUSE Atrial rate 80 [facility] M[facility] FL interval 152 [facility] M[facility] QRSD interval 92 [...] evident in Anterolateral leads- Performing Organization Address [facility] Phone Number [facility] MUSE [address] [place] [address] * Urinalysis screen and microscopy, with reflex to culture (11/10/2017 5:43 PM CDT) Specimen site Catheterized [facility] DEPARTMENT OF PATHOLOGY AND GENOMIC MEDICINE Color, UA Straw [facility] DE[facility] OF PATHOLOGY AND GENOMIC MEDICINE Appearance, UA Clear [facility] DEPART[facility] OF PATHOLOGY AND GENOMIC MEDICINE Specific gravity, UA 1.030 1.001 - 1.035 [facility] DEPARTMENT OF PATHOLOGY AND GENOMIC MEDICINE pH, UA 5.0 5.0 - 8.5 [facility] DEPARTMENT OF PATHOLOGY AND GENOMIC MEDICINE Protein, UA Negative Negative [facility] DEPARTMENT OF PATHOLOGY AND GENOMIC MEDICINE Glucose, UA 3+ (A) Negative [facility] DEPARTMENT OF PATHOLOGY AND GENOMIC MEDICINE Ketones, UA Trace (A) Negative [facility] DEPARTMENT OF PATHOLOGY AND GENOMIC MEDICINE Bilirubin, UA Negative Negative [facility] DEPARTMENT OF PATHOLOGY AND GENOMIC MEDICINE Blood, UA Small (A) Negative [facility] DEPARTMENT OF PATHOLOGY AND GENOMIC MEDICINE Nitrite, UA Negative Negative [facility] DEPARTMENT OF PATHOLOGY AND GENOMIC MEDICINE Urobilinogen, UA Negative <2.0 [facility] DEPARTMENT OF PATHOLOGY AND GENOMIC MEDICINE Leukocyte esterase, UA Negative Negative [facility] DEPARTMENT OF PATHOLOGY AND GENOMIC MEDICINE Epithelial cells, UA Few /HPF [facility] DEPARTMENT OF PATHOLOGY AND GENOMIC MEDICINE WBC, UA <1 0 - 5 /HPF [facility] DEPARTMENT OF PATHOLOGY AND GENOMIC MEDICINE RBC, UA 2 0 - 5 /HPF [facility] DEPARTMENT OF PATHOLOGY AND GENOMIC MEDICINE Bacteria, UA None seen None seen [facility] DEPARTMENT OF PATHOLOGY AND GENOMIC MEDICINE Yeast, UA None seen [facility] DEPARTMENT OF PATHOLOGY AND GENOMIC MEDICINE Yeast with pseudohyphae, None seen [facility] DEPARTMENT OF UA PATHOLOGY AND GENOMIC MEDICINE Specimen Urine Performing Organization Address City/[facility] [place] [address] PATHOLOGY AND GENOMIC MEDICINE * Urine culture (11/10/2017 5:43 PM CDT) Urine culture SEE COMMENTComment: [facility] DEPARTMENT OF Bacteriuria screen negative. PATHOLOGY AND GENOMIC MEDICINE Specimen Urine Performing Organization Address City/[facility] [place] [address] PATHOLOGY AND GENOMIC MEDICINE * CTA Neck [...] of the cervical vessels by NASCET criteria. [facility]-[id number] Procedure Note Interface, Radiology Results Incoming - [...] of the cervical vessels by NASCET criteria. [facility]-[id number] Performing Organization Address City/State/Zipcode Phone Number [facility] [address] [place] [address] * CTA Head W Wo Contrast (11/10/2017 5:27 PM CDT) Narrative Performed At EXAMINATION: CT ANGIOGRAM HEAD W WO CONTRAST [facility] CLINICAL H[facility]: numbness left side COMPARISON:CT brain [...] aneurysmal dilatation or vascular malformation of the [place]. The left vertebral artery is dominant. There is origin of the right posterior cerebral artery. IMPRESSION: No hemodynamically significant narrowing of the [place] vessels. [facility]-[id number] Procedure Note Interface, Radiology Results Incoming - [...] aneurysmal dilatation or vascular malformation of the [place]. The left vertebral artery is dominant. There is origin of the right posterior cerebral artery. IMPRESSION: No hemodynamically significant narrowing of the [place] vessels. [facility]-[id number] Performing Organization Address City/State/Zipcode Phone Number [facility] [address] [place] [address] * ECG ED Preliminary Interpretation - NOT AN ORDER (11/10/2017 5:13 PM CDT) Narrative Performed At Karyn Bernal MD 11/10/20179:17 PM ECG ED Preliminary Interpretation - Not an Order Performed by: KARYN BERNAL Authorized by: KARYN BERNAL ECG reviewed by ED Physician in the absence of a mainframe architect: yes Interpretation: Interpretation: normal Rate: ECG rate:80 ECG rate assessment: normal Rhythm: Rhythm: sinus rhythm Ectopy: Ectopy: none QRS: QRS axis:Normal QRS intervals:Normal Conduction: Conduction: normal ST segments: ST segments:Normal T waves: T waves: normal Comments: Read by Dr. Krayn Bernal at 1749 on 11/10/17 * CT [...] at 11/10/2017 5:06 PM who verbalized understanding. [facility]-[id number] Procedure Note Interface, Radiology Results Incoming - [...] 11/10/2017 5:06 PM who [facility] understanding. [id number] Performing Organization Address City/[facility]/Zipcode Phone Number [facility] [address] [place] [address] * Estimated GFR (11/10/2017 5:03 PM CDT) GFR Non Af Amer 49 (A) mL/min/1.73 m2 [facility] DEPARTMENT OF PATHOLOGY AND [employer] MEDICINE GFR Af Amer 60 mL/min/1.73 m2 [facility] DEPARTMENT OF Comment: PATHOLOGY AND Chronic kidney [...] Americans. Specimen Plasma specimen Performing Organization Address [facility] Phone Number [facility] [address] [place] [address] PATHOLOGY AND [facility] * Troponin (11/10/2017 5:03 PM CDT) Troponin <0.01 0.00 - 0.60 ng/mL [facility] DEPARTMENT OF Comment: PATHOLOGY AND 0.11 - 1.49 GENOMIC MEDICINE ng/mlMay indicate increased risk of acute coronary syndrome. >=1.5 ng/ml Consistent with acute myocardial infarction. The diagnostic value of a single normal or non-diagnostic result is questionable.Serial samples at 2-6 hour intervals are required to rule out acute myocardial injury. Specimen Plasma specimen Performing Organization Address [facility]/Zipcode Phone Number [facility] [address] [place] [address] PATHOLOGY AND [employer] [facility] * Partial thromboplastin time, activated (11/10/2017 4:55 PM CDT) PTT 27.2 23.0 - 36.0 sec [facility] DEPARTMENT OF Comment: PATHOLOGY AND PTT therapeutic range for [facility] MEDICINE unfractionated heparin is 61.0-112.0 seconds which corresponds to Anti-Xa 0.3-0.7 U/ml. Note:Change in Panic Value The PTT Panic Value is changing from 110 sec. to 100 sec. due to new instrumentation and reagents. Correlation studies have been performed to validate this result. Specimen Blood Narrative Performed At [facility] DEPARTMENT OF PATHOLOGY AND GENOMIC MEDICINE Performing Organization Address City/[facility]/Zipcode Phone Number [facility] [address] [place] [address] PATHOLOGY AND GENOMIC MEDICINE * Prothrombin time with INR (11/10/2017 4:55 PM CDT) Prothrombin time 12.2 12.0 - 15.0 sec [facility] DEPARTMENT OF PATHOLOGY AND GENOMIC MEDICINE INR 0.90 (L) 0.92 - 1.12 [facility] DEPARTMENT OF Comment: PATHOLOGY AND For patients on anticoagulant GENOMIC MEDICINE therapy, reference ranges below: Indication: INR Value Treatment of Venous Thrombosis, 2.0-3.0 pulmonary emboli, or prophylaxis of a venous thrombosis, or systemic emboli. High dose, high risk patients 3.0-4.5 with mechanical valves. NOTE:INR values over 3.0 are sometimes associated with gastrointestinal hemorrhage, especially values over 4.0. Specimen Blood Narrative Performed At [facility] DEPARTMENT OF PATHOLOGY AND GENOMIC MEDICINE Performing Organization Address [facility]/Zipcode Phone Number [facility] [address] [facility] [address]. [place] [phone] PATHOLOGY AND [employer] MEDICINE * CBC with platelet and differential (11/10/2017 4:55 PM CDT) WBC 11.0 4.2 - 11.0 k/uL [facility] DEPARTMENT OF PATHOLOGY AND GENOMIC MEDICINE RBC 4.50 4.04 - 5.86 m/uL [facility] DEPARTMENT OF PATHOLOGY AND GENOMIC MEDICINE HGB 13.4 11.5 - 15.3 g/dL [facility] DEPARTMENT OF PATHOLOGY AND GENOMIC MEDICINE HCT 40.2 34.0 - 45.0 % [facility] DEPARTMENT OF PATHOLOGY AND GENOMIC MEDICINE MCV 89.3 80.0 - 98.0 fL [facility] DEPARTMENT OF PATHOLOGY AND GENOMIC MEDICINE MCH 29.8 27.0 - 34.0 pg [facility] DEPARTMENT OF PATHOLOGY AND GENOMIC MEDICINE MCHC 33.3 31.5 - 36.5 g/dL [facility] DEPARTMENT OF PATHOLOGY AND GENOMIC MEDICINE RDW - SD 43.8 37.0 - 51.0 fL [facility] DEPARTMENT OF PATHOLOGY AND GENOMIC MEDICINE MPV 10.8 (H) 7.4 - 10.4 fL [facility] DEPARTMENT OF PATHOLOGY AND GENOMIC MEDICINE Platelet count 285 150 - 400 k/uL [facility] DEPARTMENT OF PATHOLOGY AND GENOMIC MEDICINE Nucleated RBC 0.00 /100 WBC [facility] DEPARTMENT OF PATHOLOGY AND GENOMIC MEDICINE Neutrophils 57.5 36.0 - 66.0 % [facility] DEPARTMENT OF PATHOLOGY AND GENOMIC MEDICINE Lymphocytes 35.2 24.0 - 44.0 % [facility] DEPARTMENT OF PATHOLOGY AND GENOMIC MEDICINE Monocytes 4.5 0.0 - 6.0 % [facility] DEPARTMENT OF PATHOLOGY AND GENOMIC MEDICINE Eosinophils 1.8 0.0 - 6.0 % [facility] DEPARTMENT OF PATHOLOGY AND GENOMIC MEDICINE Basophils 0.5 0.0 - 1.2 % [facility] DEPARTMENT OF PATHOLOGY AND GENOMIC MEDICINE Immature granulocytes 0.5 0.0 - 1.0 % [facility] DEPARTMENT OF PATHOLOGY AND GENOMIC MEDICINE Narrative Performed At code cva [facility] DEPARTMENT OF PATHOLOGY AND GENOMIC MEDICINE Performing Organization Address City/State/Zipcode Phone Number [facility] DEPARTMENT OF [facility] [place] [address] PATHOLOGY AND GENOMIC MEDICINE after 11/09/2017 Insurance Payer Benefit Subscriber ID Type Phone Address Plan / Group [facility] MEDICARE [facility] DUAL xxxxxxxxx HMO COMPLETE [facility] (Home) [place] [address] Advance Directives Patient has advance care planning documents on file. For more information, libby casas contact: John Garrido [address] [place] [address]
[2018-11-10] MEDS ORDERED: DIPHENHYDRAMINE HCL INJ 50 MG/ML VIAL IV ONE (19:45)
[2018-11-10] MEDS ORDERED: SODIUM CHLORIDE 0.9% 1000ML 1,000 ML IV SCH (19:45)
[2018-11-10] MEDS ORDERED: METOCLOPRAMIDE HCL 10 MG/2ML VIAL IV ONE (19:45)
[2018-11-10 23:58] VITALS: BP 123/49
== END 2018-11-10 21:55 | disposition home or self-care (01) ==
LOC: FSED 19:12
DX: G43.909 Migraine, unspecified, not intractable, without status migrainosus (principal); E11.9 Type 2 diabetes mellitus without complications; E03.9 Hypothyroidism, unspecified
CPT/HCPCS: 80053; 85025; 96374; 96375; 99283; J1200; J2765

== ENCOUNTER 2018-11-24 15:59 | Emergency (ER) | payer MEDICARE, OTHER ==
[~2018-11-24] VITALS: Ht 160 cm; Wt 115.7 kg
--- OUTSIDE RECORDS SUMMARY | 2018-11-24 16:02 | XMS REPORT | Clinical Summary ---
Author Author [employer] Organization [employer] Address Unknown Phone Unavailable Care Team Providers Care Multiple Needle Stitcher Name Role Phone Katie Martins MD PCP Allergies Comments Active Allergy Reactions Severity Noted Date Pt can take ibuprofen; Unknown aspirin reaction; Transcribed during [employer] Cutover, please verify: Aspirin Hives Low 12/06/2016 [...] neuropathy, with long-term current use of insulin ([facility]) Active pen needle, diabetic (PEN Dx E11.40 [...] Katie Martins MD 11/25/2017 Refill Internal Medicine after 11/23/2017 Immunizations Name Dates Previously Given Next Due [...] hyperglycemia, with long-term current use of insulin after 11/23/2017 Results * XR Elbow 3+ Vw Right (12/23/2017 4:59 PM CDT) Narrative Performed At EXAMINATION:XR ELBOW 3VW RIGHT [facility] CLINICAL HISTORY:right elbow pain COMPARISON:None. IMPRESSION: There is no evidence of acute right elbow fracture, dislocation, or joint effusion. [facility]-[id number] Procedure Note Hm Interface, Radiology Results Incoming - 12/23/2017 5:04 PM CDT EXAMINATION: XR ELBOW 3 VW RIGHT CLINICAL HISTORY: right elbow pain COMPARISON: None. IMPRESSION: There is no evidence of acute right elbow fracture, dislocation, or joint effusion. [facility]-[id number] Performing Organization Address City/State/Zipcode Phone Number [facility] [address] [place] [address] * Pv duplex venous upper extremity (12/23/2017 4:54 PM CDT) Narrative Performed At [facility] The right upper extremity was negative for deep vein thrombosis or superficial vein thrombosis. Performing Organization Address City/[facility]/Zipcode Phone Number [facility] [address] [place] [address] * POC glucose (12/23/2017 3:48 PM CDT) POC glucose 249 (H) 65 - 99 mg/dL [facility] DEPARTMENT OF Comment: PATHOLOGY AND Meter ID: [id number] GENOMIC MEDICINE Ict Programmer: Carmen Lou Performing Organization Address [facility]/Zipcode Phone Number [facility] DEPARTMENT [address] [place] [address] PATHOLOGY AND GENOMIC MEDICINE * Comprehensive metabolic panel (12/08/2017 9:59 AM CDT) Glucose 119 (H) 65 - 99 mg/dL [facility] BUN, whole blood 17 6 - 24 mg/dL [facility] Creatinine 0.95 0.57 - 1.00 mg/dL [facility] EGFR Non-Afr. Icelandic 75 >59 mL/min/1.73 [facility] EGFR 86 >59 [...] Blood Narrative Performed At Performed at: - [facility] [employer] [facility] [address] [facility], [id number] Painter And Decorator Apprentice: Fabricio Ibanez MD, Phone:[phone] Performing Organization Address City/State/Zipcode Phone Number [facility] after 11/23/2017 Insurance Payer Benefit Subscriber ID Type Phone Address Plan / Group [facility] MEDICARE [facility] DUAL xxxxxxxxx HMO COMPLETE [facility] (Home) [place] [address] Advance Directives Patient has advance care planning documents on file. For more information, libby casas contact: John Garrido [address] [place] [address]
[2018-11-24] MEDS ORDERED: PENICILLIN G BENZATHINE LA 1.2 MU TBX IM ONE (17:07)
[2018-11-24 17:37] VITALS: BP 114/64
== END 2018-11-24 17:39 | disposition home or self-care (01) ==
LOC: FSED 15:59
DX: J02.0 Streptococcal pharyngitis (principal); E11.65 Type 2 diabetes mellitus with hyperglycemia; F17.210 Nicotine dependence, cigarettes, uncomplicated; Z88.1 Allergy status to other antibiotic agents; Z88.5 Allergy status to narcotic agent; Z88.8 Allergy status to other drugs, medicaments and biological substances; F25.9 Schizoaffective disorder, unspecified; E11.40 Type 2 diabetes mellitus with diabetic neuropathy, unspecified; E03.9 Hypothyroidism, unspecified; Z79.4 Long term (current) use of insulin
CPT/HCPCS: 83518; 99282; J0561

== ENCOUNTER 2019-04-04 13:44 | Observation (INO) | payer MEDICARE ==
[~2019-04-04] VITALS: Ht 160 cm; Wt 115.7 kg
--- OUTSIDE RECORDS SUMMARY | 2019-04-04 13:46 | XMS REPORT | Encounter Summary ---
Author Organization Unknown Address [address] [place] [address] Phone [phone] Care Team Providers Care [facility] Attendant Name Role Phone Dr. Cha Martin 3 [phone] Reason for Visit thyroid problem; diabetes Instructions 1. Supraventricular tachycardia cardiology referral - *Please call the patient and make an appointment* PLEASE SEND BACK CONSULT NOTES TO [phone] 2. Type II diabetes mellitus uncontrolled Janumet XR 100 mg-1,000 mg tablet,extended release Invokana 300 mg tablet HbA1c (hemoglobin A1c), blood microalbumin/creatinine, ratio, urine type 2 diabetes: care instructions endocrinology referral - *Please call the patient and make an appointment* PLEASE SEND BACK CONSULT NOTES TO [phone] diabetic ophthalmology referral - *Please call the patient and make an appointment* PLEASE SEND BACK CONSULT NOTES TO [phone] lisinopril 2.5 mg tablet 3. Body mass index 40+ - severely obese body mass index: care instructions learning about healthy weight 4. Severe obesity 5. Immunization refused 6. Influenza vaccination declined 7. Hypothyroidism levothyroxine 300 mcg tablet TSH, serum or plasma 8. History of anemia - iron deficient iron + total iron-binding capacity (TIBC), serum CBC w/ auto diff 9. Mixed hyperlipidemia due to type 2 diabetes mellitus CMP, serum or plasma lipid panel, serum 10. Diabetic peripheral neuropathy Lyrica 50 mg capsule 11. Schizophrenia Discussion Note: None recorded. Plan of Care Reminders Provider Appointments Est Patient 04/12/2019 10:30AM Cha Martin MD Lab TSH, Serum or Plasma 04/28/2019 [facility] HbA1C (Hemoglobin a1C), Blood 04/28/2019 [facility] CMP, Serum or Plasma 04/28/2019 [facility] Lipid Panel, Serum 04/28/2019 [facility] Microalbumin/creatinine, Ratio, Urine 04/28/2019 [facility] Iron + Total Iron-binding Capacity (TIBC), Serum 04/28/2019 [facility] CBC W/ Auto Diff 04/28/2019 [facility] Referral Endocrinology Referral 03/29/2019 Acosta Vital MD Diabetic Ophthalmology Referral 03/29/2019 Viral Sommer MD (Ophthalmology) Cardiology Referral 03/29/2019 Morgan Meredith MD Procedures None recorded. Surgeries None recorded. Imaging None recorded. Medications Name Start Date acetaminophen 300 mg-codeine 60 mg tablet Take 1 tablet every day by oral route as needed for 7 days. Belsomra 15 mg tablet Take 1 tablet every day by oral route at bedtime for 30 days. benztropine 1 mg tablet Take 1 tablet every day by oral route for 30 days. ffvsutjxhf-tnqdldnnapsql-yutiiows 50 mg-325 mg-40 mg tablet Take 1 tablet every day by oral route as needed for 7 days. clonazepam 0.5 mg tablet Take 1 tablet every day by oral route as needed for 30 days. Invega Sustenna 156 mg/mL intramuscular syringe Inject 1 mL every month by intramusc. route for 1 day. Invokana 300 mg tablet Take 1 tablet every day by oral route for 90 days. Janumet XR 100 mg-1,000 mg tablet,extended release Take 1 tablet every day by oral route for 90 days. levothyroxine 300 mcg tablet Take 1 tablet every day by oral route for 90 days. lisinopril 2.5 mg tablet Take 1 tablet every day by oral route. Lyrica 50 mg capsule Take 1 capsule 3 times a day by oral route. promethazine 25 mg tablet Take 1 tablet every 6 hours by oral route as needed for 6 days. venlafaxine 75 mg tablet Take 1 tablet every day by oral route for 30 days. Medications Administered None recorded. Vitals Height Weight BMI Blood Pressure 5 ft 3 in 241 lbs 42.7 kg/m2 132/84 mm[Hg] Lab Results None recorded. Allergies Code Code System Name Reaction Severity Status Onset 1191 RxNorm Aspirin Hives Active 715804 RxNorm Cipro Respiratory Distress Active 90595 RxNorm Gabapentin Facial Swelling Active Toradol Respiratory Distress Active 04911 RxNorm Tramadol Seizure Active Problems Name Status Onset Date Source Hypothyroidism Active 03/30/2019 Type II Diabetes Mellitus Uncontrolled Active 03/30/2019 Diabetic Peripheral Neuropathy Active 03/30/2019 Schizophrenia Active 03/30/2019 Anxiety Active 03/30/2019 Migraine Active 03/30/2019 Supraventricular Tachycardia Active 03/30/2019 History of Anemia - Iron Deficient Active 03/30/2019 Mixed Hyperlipidemia Due to Type 2 Diabetes Mellitus Active 03/30/2019 Procedures Date Name Performed by 07/27/2005 Other Information not available 07/27/1999 Caesarean Section Information not available 07/27/1995 Caesarean Section Information not available 07/27/1989 ENT Surgery (Ear, Nose, Throat) Information not available Vaccine List None recorded. Social History Tobacco Smoking Status Heavy Tobacco Smoker (1 1/2 PPD) Past Encounters 03/30/2019 Type II Diabetes Mellitus Uncontrolled; Hypothyroidism; History of Anemia - Iron Deficient; Mixed Hyperlipidemia Due to Type 2 Diabetes Mellitus Cha Martin MD: [address] [place] [address], Ph. 03/29/2019 Supraventricular Tachycardia; Type II Diabetes Mellitus Uncontrolled; Body Mass Index 40+ - Severely Obese; Severe Obesity; Immunization Refused; Influenza Vaccination Declined; Hypothyroidism; History of Anemia - Iron Deficient; Mixed Hyperlipidemia Due to Type 2 Diabetes Mellitus; Diabetic Peripheral Neuropathy; Schizophrenia Cha Martin MD: [address] [place] [address], Ph. History of Present Illness Note:44yo female presents to become established in our office. New to [facility]. Recently moved to [place] about 10mo ago & prior PCP office is now too far away. Her life partner, Angelica Hill, comes to [facility]. Would like referrals to [facility] for DM & cardiology for hx of SVT/palpitations.<div>
<div>PMHx:</div><div >SVT - Last episode in Aug 2016. Stopped chemically with medication. Four episodes total. Was on verapamil 300mg qd in past.</div><div>Hypothyroidism - since age 19yo. No surgery. Currently on levothyroxine 300mcg/day. Last bloodwork within past 5mo. was normal.</div><div>Diabetes - since age 23yo. Is currently on Janumet XR 100/1000mg qd, Invokana 300mg qd, Bydureon weekly injection (stopped taking about a month ago -too hard). Last A1c about 8-9%. Would like to see house principal. Was on insulin in the past including toujeo, humalog, Lantus, Ozempic (not covered by insurance). Due for eye exam - last in in Feb 2017.</div><div>Diabetic neuropathy - past 4yrs. Was on Lyrica in past. Allergic to gabapentin - trouble breathing & swelling in body.</div><div> Hyperlipidemia - was on Crestor in past, none in past 6mo.</div><div>No hx of htn.</div><div>Migraine headaches - on T#3 with phenergan for HAs, uses some Fioricet as needed</div><div>Insomnia -on Belsomra & benztropine for sleep from psychiatrist, Dr Almanza, [facility] in [place].</div><div> Anxiety - on 10 tablets of clonazepam per month from psych</div><div> Schizophrenia - on Effexor & Invega injections monthly from psych. Stable for past 3mo. Has had since 2013 (diagnosed during psych hospitalization). Has lost 130# in past 2yrs from 376# to 241# currently. Sees Dr Cowan, psychologist in Dr Almanza's office sees her monthly. Sees Dr Almanza rarely.</div><div>< br></div></div> Review of Systems:ROS as noted in the HPI Review of Systems Comprehensive General Adult ROS Reported By: Patient Constitutional: Constitutional: no fever Eyes: Eyes: no vision change Cardiovascular: Cardiovascular: no chest pain Respiratory: Respiratory: no cough, no wheezing, no shortness of breath Gastrointestinal: Gastrointestinal: no abdominal pain Neurologic: Neurologic: no loss of consciousness, numbness, migraines; diabetic neuropathy Psychiatric: Psych: no depression, no alcohol abuse, no anxiety, no suicidal thoughts; followed by psych Physical Exam General Adult Exam (Female) Reported By: Patient Constitutional: General Appearance: healthy-appearing, well-developed, obese. Level of Distress: NAD. Ambulation: ambulating normally Psychiatric: Mental Status: active and alert, normal mood, normal affect Eyes: Lids and Conjunctivae: non-injected. Pupils: PERRLA. EOM: EOMI. Sclerae: non-icteric ENMT: Hearing: no hearing loss. Oropharynx: moist mucous membranes Neck: Thyroid: non-tender, no nodules Lungs: Respiratory effort: no dyspnea. Auscultation: breath sounds normal, good air movement, no wheezing, no rales/crackles Cardiovascular: Heart Auscultation: RRR, normal S1, normal S2, no murmurs. Neck vessels: no carotid bruits Abdomen: Bowel Sounds: normal. Inspection and Palpation: soft Musculoskeletal:: Joints, Bones, and Muscles: normal movement of all extremities. Extremities: no edema Neurologic: Gait and Station: normal gait Skin: Inspection and palpation: no rash
--- OUTSIDE RECORDS SUMMARY | 2019-04-04 13:46 | XMS REPORT | Encounter Summary ---
Author Organization Unknown Address [address] [place] [address] Phone [phone] Care Team Providers Care Poultry Culler Name Role Phone Dr. Cha Martin 3 [phone] Reason for Visit lab only visit Instructions 1. Type II diabetes mellitus uncontrolled HbA1c (hemoglobin A1c), blood microalbumin/creatinine, ratio, urine type 2 diabetes: care instructions 2. Hypothyroidism TSH, serum or plasma 3. History of anemia - iron deficient iron + total iron-binding capacity (TIBC), serum CBC w/ auto diff 4. Mixed hyperlipidemia due to type 2 diabetes mellitus CMP, serum or plasma lipid panel, serum Discussion Note: None recorded. Plan of Care Reminders Provider Appointments Est Patient 04/12/2019 10:30AM Cha Martin MD Lab TSH, Serum or Plasma 03/30/2019 [facility] HbA1C (Hemoglobin a1C), Blood 03/30/2019 [facility] CMP, Serum or Plasma 03/30/2019 [facility] Lipid Panel, Serum 03/30/2019 [facility] Microalbumin/creatinine, Ratio, Urine 03/30/2019 [facility] Iron + Total Iron-binding Capacity (TIBC), Serum 03/30/2019 [facility] CBC W/ Auto Diff 03/30/2019 [facility] Referral None recorded. Procedures None recorded. Surgeries None recorded. Imaging [...] day by oral route for 30 days. flltqzbjkl-cxhyuhdxecojs-mkeemdhd 50 mg-325 mg-40 mg tablet Take 1 [...] 30 days. Medications Administered None recorded. Vitals None recorded. Lab Results None recorded. Allergies Code Code System Name Reaction Severity Status Onset 1191 RxNorm Aspirin Hives Active 815351 RxNorm Cipro Respiratory Distress Active 90378 RxNorm Gabapentin Facial Swelling Active Toradol Respiratory Distress Active 99501 RxNorm Tramadol Seizure Active Problems No Known Problems Procedures Date Name Performed by 07/27/2005 Other [...] Type 2 Diabetes Mellitus Cha Martin MD: [address] [place] [address], Ph. 03/29/2019 Body Mass Index 40+ - Severely Obese; Severe Obesity; Immunization Refused; Influenza Vaccination Declined; Type II Diabetes Mellitus Uncontrolled; Hypothyroidism; History of Anemia - Iron Deficient; Mixed Hyperlipidemia Due to Type 2 Diabetes Mellitus; Supraventricular Tachycardia; Diabetic Peripheral Neuropathy Cha Martin MD: [address] [place] [address], Ph. History of Present Illness None recorded. Review of Systems None recorded. Physical Exam None recorded.
--- OUTSIDE RECORDS SUMMARY | 2019-04-04 13:46 | XMS REPORT | Clinical Summary ---
Author Author [facility] Organization [facility] Address Unknown Phone Unavailable Care Team Providers Care Fuel Quality Tech Name Role Phone Katie Martins MD PCP Allergies Comments Active Allergy Reactions Severity Noted Date Pt can take ibuprofen; Unknown aspirin reaction; Transcribed during [employer] Cutover, please verify: Aspirin Hives Low 12/06/2016 [...] tablet MG) BY MOUTH DAILY WITH BREAKFAST 10/26/2018 blood-glucose meter kit Use as 1 each 0 instructed 8 Active Problems Problem Noted Date SVT (supraventricular [...] with long- term current use of insulin ([facility]) 08/15/2018 Refill Internal Medicine after 04/03/2018 Immunizations Name Administration Dates Next Due Pneumococcal 10/26/2017 Polysaccharide Family History Medical History Relation Name Comments Kidney failure Father Thyroid disease Mother Relation Name Status Comments Father Mother Alive Social History Date Tobacco Use Types Packs/Day Years Used Current Every Day Smoker Cigarettes 1.5 Smokeless Tobacco: Never Used Tobacco Cessation: Ready to Quit: Yes; Counseling Given: No Comments: declined Drinks/Week oz/Week Comments Alcohol Use No Sex Assigned at Date Recorded Not on file Industry Job Start Date Occupation Not on file Not on file Not on file Travel End Travel History Travel Start No recent travel history available. Last Filed Vital Signs Not on file Plan of Treatment Health Maintenance Due Date Last Done Comments URINE MICROALBUMIN 1986 CERVICAL CANCER SCREENING 1997 DIABETIC FOOT EXAM 10/26/2018 10/26/2017, 10/26/2017, 10/26/2017 INFLUENZA VACCINE 02/24/2019 DIABETIC RETINAL EYE EXAM 2019 2017 Results Not on fileafter 04/03/2018 Insurance Type Payer Benefit Subscriber ID Effective Phone Address Plan / Dates Group O UHC MEDICARE UHC DUAL xxxxxxxxx 2016-P COMPLETE resent [facility] Advance Directives For more information, please contact: [phone] Patient Mechanical Service Specialist Explanation Type Date Recorded Advance Directives, 02/02/2016 8:49 AM Living Will and Medical Power of Cutter Operator Brick Advance Directives, 02/04/2016 10:35 PM Living Will and Medical Power of Cutter Operator Brick Advance Directives, 03/03/2016 6:18 PM Living Will and Medical Power of Cutter Operator Brick Advance Directives, 03/20/2016 9:36 PM Living Will and Medical Power of Cutter Operator Brick Advance Directives, 01/31/2017 3:44 AM Living Will and Medical Power of Cutter Operator Brick Advance Directives, 04/16/2017 11:14 PM Living Will and Medical Power of Cutter Operator Brick Advance Directives, 08/26/2017 11:43 AM Living Will and Medical Power of Cutter Operator Brick
--- NOTE | 2019-04-04 14:05 | NUR ---
Pt noted to have an elevated pulse rate during triage, verified with palpation. EKG performed and notified Dr. Pan. Pt brought over immediately to ER 9, crash cart placed in room, pt placed on D-fib pads.
[2019-04-04] MEDS ORDERED: METOPROLOL TARTRATE 50 MG TAB PO ONE (14:16)
[2019-04-04] MEDS ORDERED: SODIUM CHLORIDE 0.9% 1000ML 1,000 ML IV STA ×2 (14:16)
--- NOTE | 2019-04-04 14:29 | NUR ---
Pt sitting up on stretcher. RR even and unlabored. Pt remains on NIBP, pulse ox, cardiac monitoring, and oxygen via NC @ 2L and D-fib pads. Pt reports being chest pain at the present time, denies any SOB at the present time. Call light in reach. Family at bedside. Will continue to monitor.
[2019-04-04] MEDS ORDERED: METOPROLOL TARTRATE INJ 1 MG/ML VIAL IV ONE (14:30)
[2019-04-04] MEDS ORDERED: ADENOSINE 6 MG/2 ML VIAL IV ONE (14:30)
[2019-04-04 14:38] LABS: BASOPHILS % 0.1 % (0.0-1.0); EOSINOPHILS # (AUTO) 0.1 (0.0-0.4); EOSINOPHILS % 0.9 % (0.0-6.0); HEMATOCRIT 36.2 % (34.2-44.1); HEMOGLOBIN 12.1 g/dL (12.0-16.0); LYMPHOCYTES # (AUTO) 3.2 (1.0-3.2); LYMPHOCYTES % 28.5 % (18.0-39.1); MEAN CORPUSCULAR HEMOGLOBIN 27.9 pg (28-32); MEAN CORPUSCULAR HGB CONC 33.4 g/dL (31-35); MEAN CORPUSCULAR VOLUME 83.6 fL (81-99); MONOCYTES # (AUTO) 0.7 (0.2-0.8); MONOCYTES % 6.4 % (4.4-11.3); NEUTROPHILS # (AUTO) 7.1 (2.1-6.9); NEUTROPHILS % 63.7 % (38.7-80.0); PLATELET COUNT 306 x10e3/uL (140-360); RED BLOOD COUNT 4.33 x10e6/uL (3.6-5.1); RED CELL DISTRIBUTION WIDTH 15.1 % (11.7-14.4)
[2019-04-04 14:44] LABS: INR 0.89; PROTHROMBIN TIME 12.5 seconds (11.9-14.5)
[2019-04-04 14:45] LABS: PARTIAL THROMBOPLASTIN TIME 26.1 seconds (23.8-35.5)
[2019-04-04 14:52] LABS: ALANINE AMINOTRANSFERASE 21 IU/L (0-55); ALBUMIN 3.5 g/dL (3.5-5.0); ALKALINE PHOSPHATASE 115 IU/L (40-150); ANION GAP 17.9 mmol/L (8-16); BLOOD UREA NITROGEN 11 mg/dL (7-26); BUN/CREATININE RATIO 12 (6-25); CALCIUM 9.1 mg/dL (8.4-10.2); CARBON DIOXIDE 17 mmol/L (22-29); CHLORIDE 99 mmol/L (98-107); CREATINE KINASE 24 IU/L (29-168); CREATININE, SERUM 0.92 mg/dL (0.57-1.11); EST GLOMERULAR FILTRATION RATE > 60 ML/MIN (60-); MAGNESIUM 1.6 MG/DL (1.3-2.1); POTASSIUM 3.9 mmol/L (3.5-5.1); SODIUM 130 mmol/L (136-145)
[2019-04-04 14:59] LABS: GLUCOSE 427 mg/dL (74-118)
[2019-04-04 15:12] LABS: THYROID STIMULATING HORMONE 0.127 uIU/mL (0.350-4.940)
[2019-04-04] MEDS ORDERED: ONDANSETRON HCL INJ 2MG/ML 2ML 2 MG/ML VIAL IV PRN (15:15)
[2019-04-04] MEDS ORDERED: FAMOTIDINE 20 MG/2 ML VIAL IV SCH (15:15)
[2019-04-04] MEDS ORDERED: INSULIN REGULAR, HUMAN 100 UNIT/1 ML 3ML VIAL IV ONE (15:15)
[2019-04-04] MEDS ORDERED: DEXTROSE 50% SYRINGE 50 ML IV PRN (15:15)
[2019-04-04] MEDS ORDERED: METOPROLOL TARTRATE 25 MG TAB PO SCH (15:15)
[2019-04-04] MEDS ORDERED: SODIUM CHLORIDE 0.9% 1000ML 1,000 ML IV SCH (15:15)
--- NOTE | 2019-04-04 15:41 | Diagnostic Imaging Report ---
EXAMINATION: CHEST SINGLE (PORTABLE) INDICATION: Chest pain COMPARISON: Chest CT of 07/06/2018 FINDINGS: LINES/TUBES:EKG leads overlie the chest. LUNGS:The lungs are well-inflated. No focal consolidation or pulmonary edema. PLEURA:No pleural effusion or pneumothorax. MEDIASTINUM:The cardiomediastinal silhouette appears normal in size and shape. BONES/SOFT TISSUES:No acute osseous injury. ABDOMEN:No free air under the diaphragm. IMPRESSION: No focal pneumonia or pulmonary edema. Signed by: Elsy Walter MD on 04/04/2019 3:38 PM
--- OUTSIDE RECORDS SUMMARY | 2019-04-04 16:03 | XMS REPORT | Clinical Summary ---
Author Author [facility] Organization [facility] Address Unknown Phone Unavailable Care Team Providers Care Grain Cleaner Name Role Phone Katie Martins MD PCP Allergies Comments Active Allergy Reactions Severity Noted Date Pt can take ibuprofen; Unknown aspirin reaction; Transcribed during [employer] Cutover, please verify: Aspirin Hives Low 12/06/2016 [...] with long- term current use of insulin ([facility]) 08/15/2018 Refill Internal Medicine after [...] MEDICARE UHC DUAL xxxxxxxxx 2016-P COMPLETE resent [facility] Advance Directives For more information, please contact: [phone] Patient Computer Technical Support Specialist Explanation Type Date Recorded Advance Directives, 02/02/2016 8:49 AM Living Will and Medical Power of Well Tender Advance Directives, 02/04/2016 10:35 PM Living Will and Medical Power of Well Tender Advance Directives, 03/03/2016 6:18 PM Living Will and Medical Power of Well Tender Advance Directives, 03/20/2016 9:36 PM Living Will and Medical Power of Well Tender Advance Directives, 01/31/2017 3:44 AM Living Will and Medical Power of Well Tender Advance Directives, 04/16/2017 11:14 PM Living Will and Medical Power of Well Tender Advance Directives, 08/26/2017 11:43 AM Living Will and Medical Power of Well Tender
--- NOTE | 2019-04-04 16:20 | NUR ---
Report and care hand off given to RADHA Argueta.
[2019-04-04] MEDS ORDERED: INSULIN REGULAR, HUMAN 100 UNIT/1 ML 3ML VIAL SQ SCH ×2 (16:30)
[2019-04-04 17:03] VITALS: BP 103/82
[2019-04-05] MEDS ORDERED: ASPIRIN 81 MG ENTERIC COATED PO SCH (09:00)
== END 2019-04-04 19:00 | disposition left against medical advice (07) ==
LOC: ER 13:44 → ERHOLD 15:14
PROVIDERS: ADMIT Family Medicine; ATTEND Family Medicine
DX: I47.1 Supraventricular tachycardia (principal); E10.40 Type 1 diabetes mellitus with diabetic neuropathy, unspecified; F25.9 Schizoaffective disorder, unspecified; G47.00 Insomnia, unspecified; I25.10 Atherosclerotic heart disease of native coronary artery without angina pectoris; E78.5 Hyperlipidemia, unspecified; Z90.49 Acquired absence of other specified parts of digestive tract; Z53.21 Procedure and treatment not carried out due to patient leaving prior to being seen by health care provider
CPT/HCPCS: 36415; 71045; 80053; 82550; 82553; 83735; 83880; 84443; 84484; 85025; 85610; 85730; 93005; 99284; G0378; J0153; J7030

== ENCOUNTER 2019-04-15 21:17 | Emergency (ER) | payer MEDICARE ==
[~2019-04-15] VITALS: Ht 160 cm; Wt 113.4 kg
--- OUTSIDE RECORDS SUMMARY | 2019-04-15 21:19 | XMS REPORT | Clinical Summary ---
Author Author [facility] Organization [facility] Address Unknown Phone Unavailable Care Team Providers Care Golf Course Laborer Name Role Phone Katie Martins MD PCP Allergies Comments Active Allergy Reactions Severity Noted Date Pt can take ibuprofen; Unknown aspirin reaction; Transcribed during [employer] Cutover, please verify: Aspirin Hives Low 12/06/2016 [...] term current use of insulin ([facility]) 08/15/2018 Refill Internal Medicine after 04/14/2018 Immunizations Name Administration Dates Next Due Pneumococcal [...] EXAM 2019 2017 Results Not on fileafter 04/14/2018 Insurance Type Payer Benefit Subscriber ID Effective Phone Address Plan / Dates Group O UHC MEDICARE UHC DUAL xxxxxxxxx 2016-P COMPLETE resent [facility] Advance Directives For more information, please contact: [phone] Patient Projection Printer Explanation Type Date Recorded Advance Directives, 02/02/2016 8:49 AM Living Will and Medical Power of Superintendent Recreation Advance Directives, 02/04/2016 10:35 PM Living Will and Medical Power of Superintendent Recreation Advance Directives, 03/03/2016 6:18 PM Living Will and Medical Power of Superintendent Recreation Advance Directives, 03/20/2016 9:36 PM Living Will and Medical Power of Superintendent Recreation Advance Directives, 01/31/2017 3:44 AM Living Will and Medical Power of Superintendent Recreation Advance Directives, 04/16/2017 11:14 PM Living Will and Medical Power of Superintendent Recreation Advance Directives, 08/26/2017 11:43 AM Living Will and Medical Power of Superintendent Recreation
--- OUTSIDE RECORDS SUMMARY | 2019-04-15 21:19 | XMS REPORT | Encounter Summary ---
Author Organization Unknown Address [address] [place] [address] Phone [phone] Care Team Providers Care Engineering Program Manager Name Role Phone Dr. Cha Martin 3 [phone] Reason for Visit Supraventricular tachycardia; AWV Annual Wellness Visit Female (VFP); Advance Care Plan; Tobacco Cessation Counseling Instructions 1. Adult health examination 2. Advance directive discussed with patient advance care planning: care instructions advance care planning: care instructions advance care planning: care instructions 3. Nicotine dependence stopping smoking: care instructions advised to quit smoking deciding about using medicines to quit smoking spirometry testing 4. Influenza vaccination given Fluzone Quad [id number] (PF) 60 mcg (15 mcg x 4)/0.5 mL IM syringe 5. Immunization Adacel (Tdap Adolesn/Adult)(PF)2 Lf-(2.5-5-3-5)-5 Lf/0.5 mL IM syringe 6. Type II diabetes mellitus uncontrolled type 2 diabetes: care instructions 7. Mixed hyperlipidemia due to type 2 diabetes mellitus 8. Supraventricular tachycardia electrocardiogram 9. Hypothyroidism 10. Chest pain cardiology referral 11. Chronic obstructive lung disease Bevespi Aerosphere 9 mcg-4.8 mcg HFA aerosol inhaler 12. Morbid obesity learning about healthy weight 13. Moderate major depression Discussion Note: None recorded. Plan of Care Patient Instructions It was good to see you in the office today for your Medicare Annual Wellness Visit. You have been provided some information on healthy nutrition, including a diet rich in fruits and vegetables, minimizing simple carbohydrates, salt, and saturated fats. I want to encourage regular cardiovascular exercise such as walking at least 30 minutes daily, 5 times per week. Please remember to schedule any preventive health measures that we talked about today. You have also been provided education on fall prevention and community- based lifestyle interventions to help reduce health risks and promote healthy living in your Annual Wellness folder. Screening Recommendations 1. Vaccines Pneumonia: Influenza: Given today 2. Colorectal Cancer Screenin. Annual Prostate Screening 4. Annual Depression Screening 5. Annual Alcohol Screening 6. Annual Fall Risk Screening 7. Annual Health Risk Assessment Patient Instructions on Filing Advance Directives Be sure that you have easy access to your paperwork for your medical power of deputy attorney general and advanced directives. Be sure that the designated person as well as important family members have copies of those forms as well. Please have contact information of your designee readily available. In the event of hospitalization, please bring those important documents with you for reference. Quitting Tobacco Goals Quitting smoking is important for your health, but it is hard to do. We agreed to the following goals towards reducing your tobacco habits: Today we talked about how you are . Since you want to smoke less, but are not ready to quit yet, we agreed that by your next appointment, you would . Since your ready to quit smoking, we agreed that you would smoke your last cigarette on . Half-Way Goals: *Permanently quit smoking *Improve lung function *Reduce my risk of getting emphysema, cancer and heart disease What can increase my chances of success for quitting smoking? *Regular exercise *Chew gum or hard candy *Identify triggers that lead to smoking, and establish new strategies for coping with these situations *Keep yourself busy *Contact additional resources for support, such as [employer] *Don't give up, even if you have a setback How can my healthcare team support me in quitting smoking? *Follow up visits to assess progress *Identify resources available to help you quit smoking *Consider medication to increase your chances of successfully quitting smoking *Referral to counseling for additional support It was good to see you in the office today for your Medicare Annual Wellness Visit. You have been provided some information on healthy nutrition, including a diet rich in fruits and vegetables, minimizing simple carbohydrates, salt, and saturated fats. I want to encourage regular cardiovascular exercise such as walking at least 30 minutes daily, 5 times per week. Please remember to schedule any preventive health measures that we talked about today. You have also been provided education on fall prevention and community- based lifestyle interventions to help reduce health risks and promote healthy living in your Annual Wellness folder. Screening Recommendations 1. Vaccines Pneumonia: Influenza: Given today 2. Mammography Screenin. Colorectal Cancer Screenin. Annual Depression Screening 5. Annual Alcohol Screening 6. Annual Fall Risk Screening 7. Annual Health Risk Assessment Reminders Provider Appointments None recorded. Lab None recorded. Referral Cardiology Referral 04/06/2019 [facility] Procedures None recorded. Surgeries None recorded. Imaging Electrocardiogram 04/06/2019 [facility] Medications Name Start Date acetaminophen 300 mg-codeine 60 mg tablet Take 1 tablet every day by oral route as needed for 7 days. Belsomra 15 mg tablet Take 1 tablet every day by oral route at bedtime for 30 days. benztropine 1 mg tablet Take 1 tablet every day by oral route for 30 days. benztropine 2 mg tablet Bevespi Aerosphere 9 mcg-4.8 mcg HFA aerosol inhaler Inhale 2 puffs twice a day by inhalation route for 90 days. Boostrix Tdap 2.5 Lf unit-8 mcg-5 Lf/0.5 mL intramuscular syringe 0.5 ML IM ohsobghbqt-dyvxiwrwgxdyz-yzwbspjn 50 mg-325 mg-40 mg tablet Take 1 tablet every day by oral route as needed for 7 days. clonazepam 0.5 mg tablet Take 1 tablet every day by oral route as needed for 30 days. Feosol 325 mg (65 mg iron) tablet Take 1 tablet every day by oral route as directed. Invega Sustenna 156 mg/mL intramuscular syringe Inject 1 mL every month by intramusc. route for 1 day. Invokana 300 mg tablet Take 1 tablet every day by oral route for 90 days. Janumet XR 100 mg-1,000 mg tablet,extended release Take 1 tablet every day by oral route for 90 days. levothyroxine 200 mcg tablet Take 1 tablet every day by oral route. lisinopril 2.5 mg tablet Take 1 tablet every day by oral route. metoprolol succinate ER 25 mg tablet,extended release 24 hr Take 1 tablet every day by oral route. metoprolol tartrate 25 mg tablet pregabalin 50 mg capsule Take 1 capsule 3 times a day by oral route. promethazine 25 mg tablet Take 1 tablet every 6 hours by oral route as needed for 6 days. venlafaxine 75 mg tablet Take 1 tablet every day by oral route for 30 days. Medications Administered None recorded. Vitals Height Weight BMI Blood Pressure 5 ft 3 in 250 lbs 44.3 kg/m2 114/76 mm[Hg] Lab Results Date Name Specimen Result Interpretation Description Value Range Status Address 03/30/2019 CMP, Serum or Plasma High Glucose 253 mg/dL 65-99 mg/dL Final [facility]: [address] [facility] [address], [place] Normal Urea Nitrogen (BUN) 14 mg/dL 7-25 mg/dL Final [facility]: [address] [facility] Normal Creatinine 0.69 mg/dL 0.50-1.10 mg/dL Final [facility]: [address] [facility] Normal eGFR Non-afr. German 107 mL/min/1.73m2 > or=60 mL/min/1.73m2 Final [facility]: [address] [facility] Normal eGFR 124 mL/min/1.73m2 > or=60 mL/min/1.73m2 Final [facility]: [address] BUN/creatinine Ratio not applicable (calc) 6-22 (calc) Final [facility]: [address] [facility] Normal Sodium 137 mmol/L 135-146 mmol/L Final [facility]: [address] Normal Potassium 4.3 mmol/L 3.5-5.3 mmol/L Final [facility]: [address] [place] [address] Normal Chloride 105 mmol/L 98-110 mmol/L Final [facility]: [address] Normal Carbon Dioxide 25 mmol/L 20-32 mmol/L Final [facility]: [address] [facility] Normal Calcium 9.2 mg/dL 8.6-10.2 mg/dL Final [facility]: [address] [place] [address] Normal Protein, Total 6.8 g/dL 6.1-8.1 g/dL Final [facility]: [address] Normal Albumin 3.9 g/dL 3.6-5.1 g/dL Final [facility]: [address] [place] [address] Normal Globulin 2.9 g/dL (calc) 1.9-3.7 g/dL (calc) Final [facility]: [address] Normal Albumin/globulin Ratio 1.3 (calc) 1.0-2.5 (calc) Final [facility]: [address] Normal Bilirubin, Total 0.3 mg/dL 0.2-1.2 mg/dL Final [facility]: [address] [place] High Alkaline Phosphatase 123 U/L 33-115 U/L Final [facility]: [address] [place] Normal Ast 12 U/L 10-30 U/L Final [facility]: [address] [facility] Normal Alt 12 U/L 6-29 U/L Final [facility]: [address] [place] 03/30/2019 HbA1C (Hemoglobin a1C), Blood High Hemoglobin a1C 7.7 % of total HGB <5.7 % of total HGB Final [facility]: [address] [place] EAG (mg/dL) 174 (calc) Final [facility]: [address] [place] EAG (mmol/L) 9.7 (calc) Final [facility]: [address] [place] 03/30/2019 CBC W/ Auto Diff Normal White Blood Cell Count 6.7 thousand/uL 3.8-10.8 thousand/uL Final [facility]: [address] [place] [address] Normal Red Blood Cell Count 4.34 million/uL 3.80-5.10 million/uL Final [facility]: [address] [place] Low Hemoglobin 11.6 g/dL 11.7-15.5 g/dL Final [facility]: [address] [facility] Normal Hematocrit 38.1 % 35.0-45.0 % Final [facility]: [address] [place] Normal Mcv 87.8 fL 80.0-100.0 fL Final [facility]: [address] [place] Low Mch 26.7 pg 27.0-33.0 pg Final [facility]: [address] [place] Low Mchc 30.4 g/dL 32.0-36.0 g/dL Final [facility]: [address] [place] High Rdw 15.6 % 11.0-15.0 % Final [facility]: [address] [facility] Normal Platelet Count 278 thousand/uL 140-400 thousand/uL Final [facility]: [address] [place] Normal Mpv 10.1 fL 7.5-12.5 fL Final [facility]: [address] [place] Normal Absolute Neutrophils 3772 cells/uL 0806-7340 cells/uL Final [facility]: [address] [place] Normal Absolute Lymphocytes 2372 cells/uL 850-3900 cells/uL Final [facility]: [address] [place] Normal Absolute Monocytes 489 cells/uL 200-950 cells/uL Final [facility]: [address] [place] Normal Absolute Eosinophils 60 cells/uL 15-500 cells/uL Final [facility]: [address] [place] Normal Absolute Basophils 7 cells/uL 0-200 cells/uL Final [facility]: [address] [place] Normal Neutrophils 56.3 % Final [facility]: [address] [place] Normal Lymphocytes 35.4 % Final [facility]: [address] [place] Normal Monocytes 7.3 % Final [facility]: [address] [place] Normal Eosinophils 0.9 % Final [facility]: [address] [place] Normal Basophils 0.1 % Final [facility]: [address] [place] [address] 03/30/2019 Lipid Panel, Serum Normal Cholesterol, Total 169 mg/dL <200 mg/dL Final [facility]: [address] [place] [address] Low HDL Cholesterol 33 mg/dL >50 mg/dL Final [facility]: [address] [place] [address] High Triglycerides 222 mg/dL <150 mg/dL Final [facility]: [address] [place] [address] High LDL-cholesterol 102 mg/dL (calc) Final [facility]: [address] [place] [address] High Chol/hdlc Ratio 5.1 (calc) <5.0 (calc) Final [facility]: [address] [facility] High Non HDL Cholesterol 136 mg/dL (calc) <130 mg/dL (calc) Final [facility]: [address] [facility] 03/30/2019 TSH, Serum or Plasma Low Tsh 0.07 mIU/L Final [facility]: [address] [place] [address], [place] 03/30/2019 Iron + Total Iron-binding Capacity (TIBC), Serum Low Iron, Total 31 mcg/dL 40-190 mcg/dL Final [facility]: [address] [place] [address] Normal Iron Binding Capacity 375 mcg/dL (calc) 250-450 mcg/dL (calc) Final [facility]: [address] [place] [address] Low % Saturation 8 % (calc) 16-45 % (calc) Final [facility]: [address] [place] [address], [place] 03/30/2019 Microalbumin/creatinine, Ratio, Urine Normal Creatinine, Random Urine 54 mg/dL 20-275 mg/dL Final [facility]: [address] [place] [address] Normal Microalbumin <0.2 mg/dL see note: mg/dL Final [facility]: [address] [place] [address] Normal Microalbumin/creatinine Ratio, Random Urine note mcg/mg creat <30 mcg/mg creat Final [facility]: [address] [place] [address] Spirometry Testing No observation recorded. [facility]: [address] [facility] Electrocardiogram No observation recorded. [facility]: [address] [facility] Allergies Code Code System Name Reaction Severity Status Onset 1191 RxNorm Aspirin Hives Active 617600 RxNorm Cipro Respiratory Distress Active 17547 RxNorm Gabapentin Facial Swelling Active Toradol Respiratory Distress Active 78776 RxNorm Tramadol Seizure Active Problems Name Status [...] Surgery (Ear, Nose, Throat) Information not available 04/06/[address] [address] (Work [address]) Vaccine List Vaccine Type influenza, injectable, quadrivalent, preservative free 04/06/2019 Tdap 0.5 mL Social History Tobacco Smoking Status Heavy Tobacco Smoker (1 1/2 PPD) Past Encounters 04/06/2019 Adult Health Examination; Advance Directive Discussed with Patient; Nicotine Dependence; Influenza Vaccination Given; Immunization; Type II Diabetes Mellitus Uncontrolled; Mixed Hyperlipidemia Due to Type 2 Diabetes Mellitus; Supraventricular Tachycardia; Hypothyroidism; Chest Pain; Chronic Obstructive Lung Disease; Morbid Obesity; Moderate Major Depression Pineda Nieves MD: [address] [place] [phone], Ph. 03/30/2019 Type II Diabetes Mellitus Uncontrolled; Hypothyroidism; History of Anemia - Iron Deficient; Mixed Hyperlipidemia Due to Type 2 Diabetes Mellitus Cha Martin MD: [address] [place] [phone], Ph. 03/29/2019 Supraventricular Tachycardia; Type II Diabetes Mellitus Uncontrolled; Body Mass Index 40+ - Severely Obese; Severe Obesity; Immunization Refused; Influenza Vaccination Declined; Hypothyroidism; History of Anemia - Iron Deficient; Mixed Hyperlipidemia Due to Type 2 Diabetes Mellitus; Diabetic Peripheral Neuropathy; Schizophrenia Cha Martin MD: [address] [place] [phone], Ph. History of Present Illness Mini Cog Reported By: Patient Functional Ability: Personal/Social/ Draw a clock and write in the numbers in the correct place, and set the time to 10 minutes after 11 o'clock was completed correctly? Yes Tobacco Cessation Reported By: Patient HPI: Context: during stress, tobacco in house/car/work, due to habit/routine. Associated Symptoms: no weight loss, no hemoptysis, no wheezing Opioid Use Assessment Reported By: Patient Opioid Use Assessment:: Current Use of Opioids : no use of opioids (no further questions required) Note:<div>Went to [facility] on 9 & had palpitaions , x 5 th time & amp; was told she has SVT .Coffee - none, was prescribed Metoprolol ?? has not picked it up yet. ? chest pain , no shortness of breath, no palpitations ,no d izziness , no diaphoresis , no weakness or numbness in arms or legs , no visual loss .
</div><div>Does not have living will ,? chest pain since yesterday on & off only , none today .</div><div>Tea- 8 oz / day , no coffee, no energy drinks
<div>Tea- 8 oz, no weight loss meds. , Seen senior mechanical engineer in [place] </div><div> LMP -Feb
<div> I'd like to talk about what is ahead with your illness and do some thinking in advance about what is important to you so I can make sure we provide you with the care you want-is that okay? {{Yes*|No}}</div></div></div> Review of Systems:ROS as noted in the HPI Review of Systems Comprehensive General Adult ROS Reported By: Patient Physical Exam General Adult Exam (Female) Reported By: Patient Constitutional: General Appearance: well-developed, morbidly obese. Level of Distress: NAD. Ambulation: ambulating normally Psychiatric: Insight: good judgement. Mental Status: active and alert, normal mood, normal affect. Orientation: to time, to place, to person Head: Head: normocephalic, atraumatic Eyes: Lids and Conjunctivae: non-injected, no discharge, no pallor. Pupils: PERRLA. Corneas: grossly intact. EOM: EOMI. Lens: clear. Sclerae: non-icteric ENMT: Ears: no lesions on external ear, EACs clear, TMs clear. Hearing: no hearing loss. Nose: no lesions on external nose, nares patent, no septal deviation, nasal passages clear, no sinus tenderness, no nasal discharge. Lips, Teeth, and Gums: no mouth or lip ulcers, no bleeding gums, normal dentition. Oropharynx: moist mucous membranes, no erythema, no exudates, tonsils not enlarged Neck: Neck: supple, trachea midline, no masses, FROM. Lymph Nodes: no cervical LAD, no supraclavicular LAD, no axillary LAD. Thyroid: no enlargement, non- tender, no nodules Lungs: Respiratory effort: no dyspnea. Auscultation: breath sounds normal, good air movement, CTA except as noted, no wheezing, no rales/crackles, no rhonchi Cardiovascular: Heart Auscultation: RRR, normal S1, normal S2, no murmurs, no rubs, no gallops Abdomen: Bowel Sounds: normal. Inspection and Palpation: soft, no tenderness, no guarding, no rebound tenderness, no masses, no CVA tenderness; morbidly obese. Liver: non-tender, no hepatomegaly Musculoskeletal:: Motor Strength and Tone: normal motor strength, normal tone. Joints, Bones, and Muscles: normal movement of all extremities, no bony abnormalities, no contractures, no malalignment, no tenderness. Extremities: no cyanosis, no edema, no varicosities Neurologic: Gait and Station: normal gait, normal station. Cranial Nerves: grossly intact. Sensation: grossly intact Skin: Inspection and palpation: no rash, no lesions, no abnormal nevi, good turgor, no jaundice. Nails: normal Back: Thoracolumbar Appearance: normal curvature Notes: <div>Overwhelming tobacco odor emanating from pt </div>Alert, oriented x 3 , Cranial nerves 2-12 intact , Strength 5/5 in all 4 extremities , Gait - Normal , Speech - normal, Visual brown - Intact , Sensations - intact in all 4 extremities, DTR's - 2 + in all 4 extremities , No tremors, cerebellar signs intact , straight line walking test & finger nose test - normal, Rhomberg- Negative"
[2019-04-15] MEDS ORDERED: LIDOCAINE 1% W/EPINEPHRINE 20 ML VIAL ONE (21:40)
[2019-04-15] MEDS ORDERED: LIDOCAINE HCL 1% LOCAL INJ 20 ML VIAL ONE (21:53)
[2019-04-15] MEDS ORDERED: CEFTRIAXONE SOD 1 GM VIAL ONE (21:54)
[2019-04-15] MEDS ORDERED: CEFTRIAXONE SOD 1 GM VIAL IM ONE (22:00)
== END 2019-04-15 22:02 | disposition home or self-care (01) ==
LOC: FSED 21:17
DX: L02.31 Cutaneous abscess of buttock (principal); I10 Essential (primary) hypertension; E11.9 Type 2 diabetes mellitus without complications; I25.10 Atherosclerotic heart disease of native coronary artery without angina pectoris; E03.9 Hypothyroidism, unspecified
CPT/HCPCS: 10061; 99283; J0696; J2001

== ENCOUNTER 2020-12-18 18:16 | Emergency (ER) | payer OTHER, MEDICARE ==
[~2020-12-18] VITALS: Ht 160 cm; Wt 115.2 kg
[2020-12-18] MEDS ORDERED: HYDROCODONE/APAP 5MG-325MG TAB PO NR (19:30)
[2020-12-18] MEDS ORDERED: HYDROCODONE/APAP 5MG-325MG TAB ONE (19:46)
[2020-12-18 20:19] VITALS: BP 115/50
== END 2020-12-18 20:19 | disposition home or self-care (01) ==
LOC: FSED 18:26
DX: M54.5 Low back pain (principal); W01.0XXA Fall on same level from slipping, tripping and stumbling without subsequent striking against object, initial encounter; Y93.01 Activity, walking, marching and hiking; Y92.008 Other place in unspecified non-institutional (private) residence as the place of occurrence of the external cause; E11.40 Type 2 diabetes mellitus with diabetic neuropathy, unspecified; F25.9 Schizoaffective disorder, unspecified
CPT/HCPCS: 72100; 99283

== ENCOUNTER 2021-01-18 12:13 | Emergency (ER) | payer MEDICARE ==
[~2021-01-18] VITALS: Ht 160 cm; Wt 113.0 kg
[2021-01-18] MEDS ORDERED: BENZTROPINE MESY1 MG (12:32)
[2021-01-18] MEDS ORDERED: ATORVASTATIN CA20 MG PO (12:32)
[2021-01-18] MEDS ORDERED: LISINOPRIL10 MG PO (12:32)
[2021-01-18] MEDS ORDERED: METOPROLOL SUCC50 MG PO (12:32)
[2021-01-18] MEDS ORDERED: LYRICA75 MG PO (12:32)
[2021-01-18] MEDS ORDERED: LEVOTHYROXINE200 MC2 (12:32)
[2021-01-18] MEDS ORDERED: LANTUS 3ML100 UNITS/ (12:32)
[2021-01-18] MEDS ORDERED: LEXAPRO20 MG PO (12:32)
[2021-01-18] MEDS ORDERED: AIMOVIG AU70 MG/1 ML (12:32)
[2021-01-18] MEDS ORDERED: DEXAMETHASONE SOD PHOS INJ 4 MG/ML VIAL IM ONE (12:45)
[2021-01-18] MEDS ORDERED: PREDNISONE20 MG PO (13:00)
[2021-01-18] MEDS ORDERED: DEXAMETHASONE SOD PHOS INJ 4 MG/ML VIAL ONE (13:08)
== END 2021-01-18 13:13 | disposition home or self-care (01) ==
LOC: FSED 12:41
DX: T78.40XA Allergy, unspecified, initial encounter (principal); I10 Essential (primary) hypertension; E11.40 Type 2 diabetes mellitus with diabetic neuropathy, unspecified; E78.5 Hyperlipidemia, unspecified; E03.9 Hypothyroidism, unspecified; I25.10 Atherosclerotic heart disease of native coronary artery without angina pectoris; F25.9 Schizoaffective disorder, unspecified; F17.210 Nicotine dependence, cigarettes, uncomplicated
CPT/HCPCS: 96372; 99282; J1100